=== PATIENT | male | born 1945 | race Hispanic/Latino ===

== ENCOUNTER 2018-01-31 20:10 | Emergency (ER) | payer MEDICARE, OTHER ==
[~2018-01-31] VITALS: Ht 167.6 cm; Wt 122.9 kg
[~2018-01-31 20:10] MED LIST: ALDACTONE25 MG PO; AMILORIDE HCL5 MG PO; ASPIRIN325 MG PO; COLCRYS0.6 MG PO; DOCUSATE SODIU100 MG PO; FUROSEMIDE40 MG PO; LASIX20 MG PO; LASIX40 MG PO; LOSARTAN POTAS100 MG PO; LOSARTAN POTASS25 MG; MEDROL4 MG; POTASSIUM CHLO20 ME1 PO; PREDNISONE20 MG PO; SPIRONOLACTONE25 MG PO; VITAMIN D1000 UNI1 PO
== END 2018-01-31 20:39 | disposition left against medical advice (07) ==
LOC: ER 20:10
DX: M54.5 Low back pain (principal); G89.29 Other chronic pain

== ENCOUNTER 2019-03-07 07:24 | Emergency (ER) | payer MEDICARE, OTHER ==
[~2019-03-07] VITALS: Ht 167.6 cm; Wt 122.9 kg
--- OUTSIDE RECORDS SUMMARY | 2019-03-07 07:29 | XMS REPORT | Summary of Care ---
Author Author [facility] Organization [facility] Address Unknown Phone Unavailable Encounter LESLIE Mccartney(ELEAZAR) [id number] Date(s): 06/14/18 - 06/14/[address] [facility] [address] [facility] [address] [place] [phone] Encounter Diagnosis Liver disease, unspecified (Final) - 06/20/18 Nonalcoholic steatohepatitis (TODD) (Final) - Unspecified cirrhosis of liver (Final) - Essential (primary) hypertension (Final) - Morbid (severe) obesity due to excess calories (Final) - Chronic constrictive pericarditis (Final) - Portal hypertension (Final) - Personal history of other infectious and parasitic diseases (Final) - Other specified postprocedural states (Final) - Helicobacter pylori [H. pylori] as the cause of diseases classified elsewhere (Final) - Constipation, unspecified (Final) - Body mass index (BMI) 45.0-49.9, adult (Final) - Other ascites (Final) - Nicotine dependence, cigarettes, uncomplicated (Final) - Discharge Disposition: Home or Self Care Attending Physician: Teto Guajardo MD Referring Physician: Teto Guajardo MD Vital Signs Most recent to 1 oldest [Reference Range]: Height 167.64 cm (06/14/18 12:05 PM) Blood Pressure 151/91 mmHg [90-140/60-90 mmHg] *HI* (06/14/18 12:05 PM) Weight 126.818 kg (06/14/18 12:05 PM) Body Mass Index 45.13 m2 (06/14/18 12:05 PM) Problem List Condition Effective Dates Status Health Status Informant Ascites(Confirmed) Active Chronic constrictive Active pericarditis(Confirm ed) Cirrhosis of Active liver(Confirmed) H/O Active pericarditis(Confirm ed) HTN Resolved (hypertension)(Confi rmed) Liver Active masses(Confirmed) Morbid Active obesity(Confirmed) TODD (nonalcoholic Active steatohepatitis)(Con firmed) Bilateral shoulder Active pain(Confirmed) Allergies, Adverse Reactions, Alerts Substance Reaction Severity Status omeprazole pantoprazole Active spironolactone Active pantoprazole Active Medications amoxicillin 500 mg oral tablet 1,000 mg=2 tab, PO, BID, X 14 day, # 56 tab, 0 Refill(s), Pharmacy: [facility] [id number] Start Date: 07/29/18 Stop Date: 08/01/18 Status: Discontinued Centrum Silver oral tablet 1 tab, PO, Daily, # 30 tab, 0 Refill(s) Start Date: 06/14/18 Status: Ordered clarithromycin 500 mg oral tablet 500 mg=1 tab, PO, BID, X 14 day, # 28 tab, 0 Refill(s), Pharmacy: [facility] [id number] Start Date: 07/29/18 Stop Date: 08/01/18 Status: Discontinued omeprazole 20 mg oral delayed release capsule 20 mg=1 cap, PO, BID, # 28 cap, 0 Refill(s), Pharmacy: [facility] [id number] Start Date: 07/29/18 Stop Date: 08/01/18 Status: Discontinued Osteo Bi-Flex 0 Refill(s) Start Date: 06/14/18 Stop Date: 07/20/18 Status: Deleted Pylera oral capsule 3 cap, PO, QID-After Meals, Take after meals and at bedtime, X 14 day, # 168 cap , 0 Refill(s), Pharmacy: [facility] [id number] Start Date: 07/27/18 Stop Date: 07/29/18 Status: Discontinued Pylera oral capsule 3 cap, PO, QID-After Meals, Take after meals and at bedtime, X 10 day, # 120 cap , 0 Refill(s), other Start Date: 08/01/18 Stop Date: 08/11/18 Status: Completed Results Most recent to 1 oldest [Reference Range]: Neutrophils # 7.7 K/CMM [1.5-8.1 K/CMM] (06/14/18 3:04 PM) Lymphocytes # 1.8 K/CMM [1.0-5.5 K/CMM] (06/14/18 3:04 PM) Monocytes # [0.0-0.8 0.9 K/CMM K/CMM] *HI* (06/14/18 3:04 PM) Eosinophils # 0.1 K/CMM [0.0-0.5 K/CMM] (06/14/18 3:04 PM) Bili Indirect 1.0 mg/dL [0.0-1.0 mg/dL] (06/14/18 3:04 PM) eGFR 80 mL/min/1.73m2 1 *NA* (06/14/18 3:04 PM) A/G Ratio [0.7-1.6] 0.9 (06/14/18 3:04 PM) AFP TM [0.0-11.0 4.0 ng/mL ng/mL] (06/14/18 3:04 PM) Albumin Lvl [3.5-5.0 3.7 g/dL g/dL] (06/14/18 3:04 PM) Alk Phos [39-136 83 unit/L unit/L] (06/14/18 3:04 PM) ALT [0-65 unit/L] 21 unit/L (06/14/18 3:04 PM) AGAP [10.0-20.0 12.2 mEq/L mEq/L] (06/14/18 3:04 PM) AST [0-37 unit/L] 18 unit/L (06/14/18 3:04 PM) Basophils [0.0-1.0 0.4 % %] (06/14/18 3:04 PM) BUN [7-22 mg/dL] 20 mg/dL (06/14/18 3:04 PM) Calcium Lvl 8.7 mg/dL [8.5-10.5 mg/dL] (06/14/18 3:04 PM) Chloride Lvl [95-109 103 mEq/L mEq/L] (06/14/18 3:04 PM) CO2 [24-32 mEq/L] 30 mEq/L (06/14/18 3:04 PM) Creatinine Lvl 0.94 mg/dL [0.50-1.40 mg/dL] (06/14/18 3:04 PM) Bili Direct [0.0-0.3 0.4 mg/dL mg/dL] *HI* (06/14/18 3:04 PM) Eosinophils [0.0-4.0 0.9 % %] (06/14/18 3:04 PM) Globulin [2.7-4.2 4.2 g/dL g/dL] (06/14/18 3:04 PM) Glucose Lvl [70-99 100 mg/dL mg/dL] *HI* (06/14/18 3:04 PM) Hct [42.0-54.0 %] 44.3 % (06/14/18 3:04 PM) Hgb [14.0-18.0 g/dL] 14.8 g/dL (06/14/18 3:04 PM) INR [0.85-1.17] 1.18 *HI* (06/14/18 3:04 PM) Potassium Lvl 4.2 mEq/L [3.5-5.1 mEq/L] (06/14/18 3:04 PM) Lymphocytes 17.1 % [20.0-40.0 %] *LOW* (06/14/18 3:04 PM) MCH [27.0-31.0 pg] 31.8 pg *HI* (06/14/18 3:04 PM) MCHC [32.0-36.0 33.5 g/dL g/dL] (06/14/18 3:04 PM) MCV [80.0-94.0 fL] 94.9 fL *HI* (06/14/18 3:04 PM) Monocytes [2.0-12.0 8.3 % %] (06/14/18 3:04 PM) MPV [7.4-10.4 fL] 10.9 fL *HI* (06/14/18 3:04 PM) Sodium Lvl [135-145 141 mEq/L mEq/L] (06/14/18 3:04 PM) Platelet [133-450 159 K/CMM K/CMM] (06/14/18 3:04 PM) Segs [45.0-75.0 %] 73.3 % (06/14/18 3:04 PM) Total Protein 7.9 g/dL [6.4-8.4 g/dL] (06/14/18 3:04 PM) PT [12.0-14.7 14.8 seconds seconds] *HI* (06/14/18 3:04 PM) RBC [4.70-6.10 4.66 M/CMM M/CMM] *LOW* (06/14/18 3:04 PM) RDW [11.5-14.5 %] 16.1 % *HI* (06/14/18 3:04 PM) Bili Total [0.2-1.3 1.4 mg/dL mg/dL] *HI* (06/14/18 3:04 PM) WBC [3.7-10.4 K/CMM] 10.4 K/CMM (06/14/18 3:04 PM) 1Result Comment: The eGFR is calculated using the CKD-EPI formula. In most young, healthy individuals the eGFR will be >90 mL/min/1.73m2. The eGFR declines with age. An eGFR of 60-89 may be normal in some populations, particularly the elderly, for whom the CKD-EPI formula has not been extensively validated. Use of the eGFR is not recommended in the following populations: Individuals with unstable creatinine concentrations, including patients and those with serious co-morbid conditions. Patients with extremes in muscle mass or diet. The data above are obtained from the National Kidney Disease Education Program ( NKDEP) which additionally recommends that when the eGFR is used in patients with extremes of body mass index for purposes of drug dosing, the eGFR should be mul tiplied by the estimated BMI. Immunizations No data available for this section Procedures Procedure Date Related Diagnosis Body Site Status Esophagogastroduodenoscopy Completed Social History Social History Type Response Substance Abuse Use: None. Employment/School Status: Retired. Alcohol Never Smoking Status Former smoker; Type: Cigarettes; Exposure to Tobacco Smoke Pt. current everyday smoker; Cigarette Smoking Last 365 Days No; Reg Smoking Cessation Counseling No1 entered on: 12/15/18 1quit about 2 years ago Assessment and Plan No data available for this section
--- OUTSIDE RECORDS SUMMARY | 2019-03-07 07:29 | XMS REPORT | Continuity of Care Document ---
Author Author [email or web address] Address Unknown Phone Unavailable Care Team Providers Care Medical Assistant Secretary Name Role Phone gBox Unavailable Unavailable Problems Problem Status Onset Date Classification Date Reported Comments Source Diverticulitis of intestine, part unspecified, without perforation or abscess without bleeding 11/20/2018 11/22/2018 [facility] Unspecified fall, initial encounter 11/20/2018 11/22/2018 [facility] Dorsalgia, unspecified 11/20/2018 11/22/2018 [facility] Abrasion of right forearm, initial encounter 11/20/2018 11/22/2018 [facility] BACK PAIN Active 11/20/2018 [facility] Other cirrhosis of liver 08/05/2018 02/08/2019 [facility] Liver disease, unspecified 06/21/2018 01/02/2019 [facility] F/U Active 06/20/2018 [facility] CIRRHOSIS, HELICOBACTER PYLORI GASTRITIS Active 06/20/2018 [facility] K75.81 - NONALCOHOLIC STEATOHEPATITIS ( Active 06/17/2018 HAZEL Wolf FOLLOW-UP Active 01/11/2018 [facility] CIRRHOSIS, R/O ESOPHAGEAL VARICES Active 04/06/2017 [facility] DDC // 6 MONTH F/U VISIT Active 04/06/2017 [facility] DDC-6 MONTH F/U VISIT Active 10/06/2016 [facility] BILATERAL SHOULDERS Active 06/23/2016 ZAK Cotton BDDC-Z00.00 ENCOUNTER FOR GENERAL MEDICA Active 04/23/2016 [facility] K74.60 - UNSPECIFIED CIRRHOSIS OF LIVER Active 01/22/2016 [facility] [employer] SOB Active 01/22/2016 [facility] R18.8 - OTHER ASCITES K74.60 - UNSPECIFI Active 01/13/2016 OPID Cotton BDDC - F/U Active 01/13/2016 [facility] CIRRHOSIS Active 12/13/2015 [facility] Hypotension Active 11/07/2015 Problem 02/01/2018 [facility] Pneumonia Active 11/07/2015 Problem 02/01/2018 [facility] Sepsis Active 11/07/2015 Problem 02/01/2018 [facility] CHF Active 09/13/2015 Problem 02/01/2018 [facility] Cirrhosis Active 09/13/2015 Problem 02/01/2018 [facility] Dyspnea Active 09/13/2015 Problem 02/01/2018 [facility] Hypoxia Active 09/13/2015 Problem 02/01/2018 [facility] PEROCARDIO Active 09/13/2015 [facility] Ascites (disorder) Active Problem 02/08/2019 [facility], HAZEL Hazel, [place], HAZEL Wolf, [facility] Cotton Chronic constrictive pericarditis (disorder) Active Problem 02/08/2019 [facility], HAZEL Haz[place], [place], OPID Luciano, [facility] Cotton Cirrhosis of liver (disorder) Active Problem 02/08/2019 [facility], HAZEL [place], [place], OPID Luciano, [facility] Cotton Hypertensive disorder, systemic arterial (disorder) Resolved Problem 02/08/2019 [facility], HAZEL Haz[place], [place], OPID Luciano, [facility] Cotton Liver mass (finding) Active Problem 02/08/2019 [facility], HAZEL [place], [place], OPID Wolf Morbid obesity (disorder) Active Problem 02/08/2019 [facility], HAZEL Haz[place], [place], OPID Luciano, [facility] Cotton Obesity (disorder) Active Problem 05/23/2017 [facility], HAZEL Hazel, OPID Luciano, [facility] Cotton Shoulder pain (finding) Active Problem 02/08/2019 [facility], HAZEL Hazel, [place], OPID Wolf, SMR Cotton Nonalcoholic steatohepatitis (disorder) Active Problem 02/08/2019 [facility], HAZEL Haz[place], [place], OPID Wolf Pericarditis (disorder) Resolved Problem 12/17/2017 [facility] History of pericarditis (situation) Active Problem 02/08/2019 [facility], HAZEL Hazel,[facility], HAZEL Wolf Portal hypertension 02/08/2019 [facility] Other diseases of stomach and duodenum 02/08/2019 [facility] Chronic superficial gastritis without bleeding 02/08/2019 [facility] Other campus receptionist (current) drug therapy 02/08/2019 [facility] Personal history of nicotine dependence 02/08/2019 [facility] Essential (primary) hypertension 02/08/2019 [facility] Nonalcoholic steatohepatitis (TODD) 02/08/2019 [facility] Personal history of other infectious and parasitic diseases 02/08/2019 [facility] Obesity, unspecified 02/08/2019 [facility] Body mass index (BMI) 35.0-35.9, adult 02/08/2019 [facility] Unspecified cirrhosis of liver 01/02/2019 [facility] Morbid (severe) obesity due to excess calories 01/02/2019 [facility] Chronic constrictive pericarditis 01/02/2019 [facility] Other specified postprocedural states 01/02/2019 [facility] Helicobacter pylori [H. pylori] as the cause of diseases classified elsewhere 01/02/2019 [facility] Constipation, unspecified 01/02/2019 [facility] Body mass index (BMI) 45.0-49.9, adult 01/02/2019 [facility] Other ascites 01/02/2019 [facility] Nicotine dependence, cigarettes, uncomplicated 01/02/2019 [facility] ENCOUNTER FOR OTHER ADMINISTRATIVE EXAMI Active [facility] ENCNTR FOR GENERAL ADULT MEDICAL EXAM W/ Active [facility] Medications Medication Details Route Status Patient Instructions Ordering Provider Order Date Source aMILoride 5 mg oral tablet 15 mg=3 tab, PO, Daily, # 270 tab, 5 Refill(s), Pharmacy: [facility] [id number], Please discontinue all previous RX of amiloride Active 12/15/2018 [facility] tramadol hydrochloride 50 MG Oral Tablet [Ultram] 50 mg=1 tab, PO, Q6H, PRN Pain Score 1-5, X 3 day, # 12 tab, 0 Refill(s) Active 11/21/2018 [facility] Metronidazole 500 MG Oral Tablet [Flagyl] 500 mg=1 tab, PO, Q8H, X 10 day, # 30 tab, 0 Refill(s) Active 11/21/2018 [facility] Ciprofloxacin 500 MG Oral Tablet [Cipro] 500 mg=1 tab, PO, Q12H, X 10 day, # 20 tab, 0 Refill(s) Active 11/21/2018 [facility] baclofen 20 mg oral tablet 20 mg=1 tab, PO, TID, PRN Spasms, # 90 tab, 0 Refill(s) Active 11/21/2018 [facility] Valium 2.5 mg, 0.5 tab, Route: PO, Drug form: TAB, ONCE, Dosing Weight 127, kg, Priority: STAT, Start date: 11/20/18 22:33:00 CDT, Stop date: 11/20/18 22:33:00 CDTNotes: (Same as: Valium) Inactive 11/21/2018 [facility] Valium 2.5 mg, Route: PO, Drug form: TAB, ONCE, Dosing Weight 127, kg, Priority: STAT, Start date: 11/20/18 21:31:00 CDT, Stop date: 11/20/18 21:31:00 CDT Inactive 11/21/2018 [facility] Valium 2 mg, Route: IVP, Drug form: INJ, ONCE, Dosing Weight 127, kg, Priority: STAT, Start date: 11/20/18 21:25:00 CDT, Stop date: 11/20/18 21:25:00 CDT Inactive 11/21/2018 [facility] Motrin 800 mg, Route: PO, Drug form: TAB, ONCE, Dosing Weight 127, kg, Priority: STAT, Start date: 11/20/18 21:24:00 CDT, Stop date: 11/20/18 21:24:00 CDT Inactive 11/21/2018 [facility] Ondansetron 4 mg, 2 mL, Route: IVP, Drug form: INJ, ONCE, Dosing Weight 127, kg, Priority: STAT, Start date: 11/20/18 20:23:00 CDT, Stop date: 11/20/18 20:23:00 CDTNotes: (Same as: Yohanafrbertha) MEDICATION WASTE Product Size: 4 mg Product Wasted: ___ mg Inactive 11/21/2018 [facility] Morphine 4 mg, 1 mL, Route: IVP, Drug form: SOLN, ONCE, Dosing Weight 127, kg, Priority: STAT, Start date: 11/20/18 20:23:00 CDT, Stop date: 11/20/18 20:23:00 CDTNotes: (Same as:MORPhine Sulfate) Inactive 11/21/2018 [facility] Ondansetron 4 mg, 2 mL, Route: IVP, Drug form: INJ, ONCE, Dosing Weight 127, kg, Priority: STAT, Start date: 11/20/18 17:56:00 CDT, Stop date: 11/20/18 17:56:00 CDTNotes: (Same as: Zofran) MEDICATION WASTE Product Size: 4 mg Product Wasted: ___ mg Inactive 11/20/2018 [facility] Morphine 4 mg, 1 mL, Route: IVP, Drug form: SOLN, ONCE, Dosing Weight 127, kg, Priority: STAT, Start date: 11/20/18 17:56:00 CDT, Stop date: 11/20/18 17:56:00 CDTNotes: (Same as:MORPhine Sulfate) Inactive 11/20/2018 [facility] bismuth subcitrate 140 MG / Metronidazole 125 MG / tetracycline hydrochloride 125 MG Oral Capsule [Pylera] 3 cap, PO, QID-After Meals, Take after meals and at bedtime, X 10 day, # 120 cap, 0 Refill(s), other No Longer Active 08/01/2018 [facility] omeprazole 20 mg oral delayed release capsule 20 mg=1 cap, PO, BID, # 28 cap, 0 Refill(s), Pharmacy: [facility] [id number] No Longer Active 07/29/2018 [facility] amoxicillin 500 mg oral tablet 1,000 mg=2 tab, PO, BID, X 14 day, # 56 tab, 0 Refill(s), Pharmacy: [facility] [id number] No Longer Active 07/29/2018 [facility] clarithromycin 500 mg oral tablet 500 mg=1 tab, PO, BID, X 14 day, # 28 tab, 0 Refill(s), Pharmacy: [facility] [id number] No Longer Active 07/29/2018 [facility] bismuth subcitrate 140 MG / Metronidazole 125 MG / tetracycline hydrochloride 125 MG Oral Capsule [Pylera] 3 cap, PO, QID-After Meals, Take after meals and at bedtime, X 14 day, # 168 cap, 0 Refill(s), Pharmacy: [facility] [id number] No Longer Active 07/27/2018 [facility] Triamcinolone Acetonide 0.001 MG/MG Topical Ointment See Instructions, TOP TID, 0 Refill(s) Active 07/21/2018 [facility] Docusate 100 mg, PO, BID, 0 Refill(s) Active 07/21/2018 [facility] Osteo Bi-Flex 0 Refill(s) No Longer Active 06/14/2018 [facility] Centrum Silver oral tablet 1 tab, PO, Daily, # 30 tab, 0 Refill(s) Active 06/14/2018 [facility] Hydrocortisone 25 MG/ML Topical Cream [Proctozone HC] 1 appl, TOP, Daily, PRN Hemorrhoids, X 30 day, # 30 gm, 0 Refill(s), Pharmacy: [facility] [id number] Active 12/14/2017 [facility] omeprazole 40 mg oral delayed release capsule 40 mg=1 cap, PO, Daily, # 30 cap, 1 Refill(s), given to patient No Longer Active 05/20/2017 [facility] Furosemide 20 MG Oral Tablet [Lasix] 20 mg=1 tab, PO, Daily, # 30 tab, 2 Refill(s), Pharmacy: [facility] [id number] Active 07/24/2016 [facility] aMILoride 5 mg oral tablet 5 mg=1 tab, PO, Daily, # 30 tab, 3 Refill(s), Pharmacy: [facility] [id number] Active 07/14/2016 [facility] Furosemide 20 MG Oral Tablet [Lasix] 20 mg=1 tab, PO, Daily, # 30 tab, 3 Refill(s), Pharmacy: [facility] [id number] Active 03/26/2016 [facility] Furosemide 20 MG Oral Tablet [Lasix] 20 mg=1 tab, PO, Daily, 0 Refill(s) No Longer Active 03/24/2016 [facility] aMILoride 5 mg oral tablet 5 mg=1 tab, PO, Daily, # 30 tab, 3 Refill(s), Pharmacy: [facility] [id number] Active 03/24/2016 [facility] Vitamin D3 0 Refill(s) Active 03/24/2016 [facility] Hydrocortisone 25 MG/ML Topical Cream [Anusol HC] 1 appl, NM, BID, X 14 day, # 30 gm, 1 Refill(s), Pharmacy: [facility] [id number] No Longer Active 01/23/2016 [facility] Docusate Sodium 100 MG Oral Capsule [Colace] 200 mg=2 cap, PO, Daily, 0 Refill(s) Active 01/13/2016 [facility] midodrine 5 mg oral tablet 5 mg=1 tab, PO, TID, # 90 tab, 3 Refill(s) Active 01/13/2016 [facility] Aspirin 325 Mg Tablet, 325 Mg Oral Active 11/10/2015 [facility] Colchicine (Colcrys) 0.6 Mg Tablet, 0.6 Mg Oral Daily Active 11/10/2015 [facility] Furosemide (Lasix) 40 Mg Tablet, 40 Mg Oral Daily Active 11/10/2015 [facility] Losartan Potassium 100 Mg Tablet, 50 Mg Oral Daily Active 11/10/2015 [facility] Potassium Chloride 20 Meq Tab.er.prt, 2 Tab Oral Daily as needed for High Blood Pressure Active 11/10/2015 [facility] Prednisone 20 Mg Tab, 20 Mg Oral Twice A Day Active 11/10/2015 [facility] Spironolactone 25 Mg Tablet, 100 Mg Oral Twice A Day Active 11/10/2015 [facility] Losartan Potassium 25 Mg Tablet, Active 11/07/2015 [facility] Spironolactone 25 Mg Tablet, 25 Mg Oral Twice A Day Active 11/07/2015 [facility] Furosemide 40 MG Oral Tablet [Lasix] 40 mg, 1 tab, Route: PO, Drug form: TAB, Daily, Dosing Weight 130, kg, Start date: 09/16/15 9:00:00, Duration: 30 day, Stop date: 10/15/15 9:00:00Notes: (Same as: Lasix) May cause GI upset. Give with food or milk. Inactive 09/16/2015 [facility] Miralax 17 gm, 1 pkt, Route: PO, Drug form: PWDR, Daily, Dosing Weight 130, kg, Start date: 09/16/15 9:00:00, Duration: 30 day, Stop date: 10/15/15 9:00:00Notes: Dissolve in 8 oz of water or juice. (Same as: Miralax) Inactive 09/16/2015 [facility] Docusate 100 mg, 1 cap, Route: PO, Drug form: CAP, BID, Dosing Weight 130, kg, Start date: 09/15/15 9:00:00, Duration: 30 day, Stop date: 10/14/15 17:00:00Notes: (Same as: Colace) (Do Not Crush) No Longer Active 09/15/2015 [facility] Hydrocortisone 10 MG/ML Rectal Cream 1 appl, Route: NM, BID, Start date: 09/15/15 9:00:00, Duration: 30 day, Stop date: 10/14/15 17:00:00 No Longer Active 09/15/2015 [facility] potassium chloride 20 mEq, 1 tab, Route: PO, Drug form: ERTAB, Daily, Dosing Weight 130, kg, Start date: 09/15/15 9:00:00, Duration: 30 day, Stop date: 10/14/15 9:00:00Notes: (Same as: K-Dur 20) "Do Not Crush" With food and full glass of water No Longer Active 09/15/2015 [facility] potassium chloride 40 mEq, 2 tab, Route: PO, Drug form: ERTAB, ONCE, Dosing Weight 130, kg, Start date: 09/15/15 4:53:00, Stop date: 09/15/15 4:53:00Notes: (Same as: K-Dur 20) "Do Not Crush" With food and full glass of water Inactive 09/15/2015 [facility] Calcium Gluconate 2,000 mg, 20 mL, Route: IVPB, ONCE, Dosing Weight 130, kg, Start date: 09/15/15 4:53:00, Stop date: 09/15/15 4:53:00Notes: WASTE: F/P - Sink; E - Municipal Trash Bin Inactive 09/15/2015 [facility] hydrocortisone 2.5% rectal cream with applicator 1 appl, Route: NM, BID, Drug form: CRM/A, Start date: 09/14/15 21:30:00, Duration: 30 day, Stop date: 10/14/15 17:00:00Notes: (Same as: Anusol-HC, Proctosol-HC) No Longer Active 09/15/2015 [facility] Losartan 25 mg, 1 tab, Route: PO, Drug form: TAB, Bedtime, Dosing Weight 130, kg, Start date: 09/14/15 21:00:00, Duration: 30 day, Stop date: 10/13/15 21:00:00Notes: (Same as: Cozaar) No Longer Active 09/15/2015 [facility] senna 8.6 mg oral tablet 8.6 mg, 1 tab, Route: PO, Drug Form: TAB, Dosing Weight 130, kg, Bedtime, Start date: 09/14/15 21:00:00, Duration: 30 day, Stop date: 10/13/15 21:00:00Notes: (Same as: Senokot) No Longer Active 09/15/2015 [facility] Aldactone 25 mg, 1 tab, Route: PO, Drug form: TAB, BID, Dosing Weight 130, kg, Start date: 09/14/15 17:00:00, Duration: 30 day, Stop date: 10/14/15 9:00:00Notes: (Same As: Aldactone) No Longer Active 09/14/2015 [facility] Lasix 40 mg, 4 mL, Route: IVP, Drug form: INJ, Q12H, Dosing Weight 130, kg, Start date: 09/14/15 13:50:00, Duration: 30 day, Stop date: 10/14/15 9:00:00Notes: (Same as: Lasix) MEDICATION WASTE Product Size: 40 mg Product Wasted: ___ mg No Longer Active 09/14/2015 [facility] heparin 5,000 unit, 1 mL, Route: SUB-Q, Drug form: INJ, Q8H, Dosing Weight 130, kg, Start date: 09/14/15 0:00:00, Duration: 30 day, Stop date: 10/13/15 16:00:00Notes: porcine heparin No Longer Active 09/14/2015 [facility] atorvastatin 40 mg, 1 tab, Route: PO, Drug form: TAB, Bedtime, Dosing Weight 130, kg, Start date: 09/13/15 21:00:00, Duration: 30 day, Stop date: 10/12/15 21:00:00Notes: (Same as: Lipitor) No Longer Active 09/14/2015 [facility] Nitroglycerin 0.4 mg, 1 tab, Route: SL, Drug form: TAB, Q5Min, Dosing Weight 130, kg, PRN Chest Pain, Start date: 09/13/15 18:12:00, Duration: 3 doses or times, Stop date: Limited # of timesNotes: (Same as:Nitroqu ick, Nitrostat) "Do Not Crush" Sublingual tablet No Longer Active 09/14/2015 [facility] Spironolactone 25 MG Oral Tablet [Aldactone] 25 mg=1 tab, PO, BID, 0 Refill(s) Active 09/13/2015 [facility] losartan 50 mg oral tablet 50 mg=1 tab, PO, Bedtime, 0 Refill(s) Active 09/13/2015 [facility] Furosemide 40 MG Oral Tablet [Lasix] 40 mg=1 tab, PO, Daily, 0 Refill(s) Active 09/13/2015 [facility] Amiloride Hcl 5 Mg Tablet Daily Active [facility] Cholecalciferol (Vitamin D3) (Vitamin D) 1,000 Unit Tablet 2DAYS/Wk Active [facility] Docusate Sodium 100 Mg Capsule Daily Active [facility] Furosemide (Lasix) 20 Mg Tablet Daily Active [facility] Methylprednisolone (Medrol) 4 Mg Tablet Active [facility] Spironolactone (Aldactone) 25 Mg Tablet Daily Active [facility] Allergies, Adverse Reactions, Alerts Substance Category Reaction Severity Reaction type Status Date Reported Comments Source spironolactone Assertion Drug allergy Active [facility] omeprazole Assertion pantoprazole Propensity to adverse reactions to drug Active [facility] pantoprazole Assertion Propensity to adverse reactions to drug Active [facility] Immunizations No Data Provided for This Section Results Order Name Results Value Reference Range Date Interpretation Comments Source IMMUNOLOGY H pylori Breath Test Negative (12/15/18 1:16 PM) 12/15/2018 [facility] CARDIAC ENZYMES Troponin-I <0.02 0.00 - 0.40 11/20/2018 [facility] ELECTROLYTES AGAP 8.8 10.0 - 20.0 11/20/2018 [facility] ELECTROLYTES eGFR 73 11/20/2018 Result Comment: The eGFR is calculated using the [...] from the National Kidney Disease Education Program (NKDEP) which additionally recommends that when the eGFR is used in patients with extremes of body mass index for purposes of drug dosing, the eGFR should be multiplied by the estimated BMI. [facility] ELECTROLYTES Glucose Lvl 111 70 - 99 11/20/2018 [facility] ELECTROLYTES BUN 16 7 - 22 11/20/2018 [facility] ELECTROLYTES Sodium Lvl 139 135 - 145 11/20/2018 [facility] ELECTROLYTES Creatinine Lvl 1.01 0.50 - 1.40 11/20/2018 [facility] ELECTROLYTES Potassium Lvl 3.8 3.5 - 5.1 11/20/2018 [facility] ELECTROLYTES Calcium Lvl 8.1 8.5 - 10.5 11/20/2018 [facility] ELECTROLYTES Chloride Lvl 107 95 - 109 11/20/2018 [facility] ELECTROLYTES CO2 27 24 - 32 11/20/2018 [facility] HEMATOLOGY MCV 95.7 80.0 - 94.0 11/20/2018 [facility] HEMATOLOGY MCH 31.2 27.0 - 31.0 11/20/2018 [facility] HEMATOLOGY Hct 46.1 42.0 - 54.0 11/20/2018 [facility] HEMATOLOGY Hgb 15.0 14.0 - 18.0 11/20/2018 [facility] HEMATOLOGY Platelet 142 133 - 450 11/20/2018 [facility] HEMATOLOGY MPV 9.8 7.4 - 10.4 11/20/2018 [facility] HEMATOLOGY MCHC 32.6 32.0 - 36.0 11/20/2018 [facility] HEMATOLOGY RBC 4.81 4.70 - 6.10 11/20/2018 [facility] HEMATOLOGY WBC 6.8 3.7 - 10.4 11/20/2018 [facility] HEMATOLOGY RDW 15.1 11.5 - 14.5 11/20/2018 [facility] HEMATOLOGY Lymphocytes # 1.5 1.0 - 5.5 11/20/2018 [facility] HEMATOLOGY Neutrophils # 4.5 1.5 - 8.1 11/20/2018 [facility] HEMATOLOGY Eosinophils 1.9 0.0 - 4.0 11/20/2018 [facility] HEMATOLOGY Basophils 0.5 0.0 - 1.0 11/20/2018 [facility] HEMATOLOGY Monocytes 9.7 2.0 - 12.0 11/20/2018 [facility] HEMATOLOGY Segs 66.0 45.0 - 75.0 11/20/2018 [facility] HEMATOLOGY Lymphocytes 21.9 20.0 - 40.0 11/20/2018 [facility] HEMATOLOGY Monocytes # 0.7 0.0 - 0.8 11/20/2018 [facility] HEMATOLOGY Eosinophils # 0.1 0.0 - 0.5 11/20/2018 [facility] CHEM PANEL Globulin 4.2 2.7 - 4.2 06/14/2018 [facility] CHEM PANEL A/G Ratio 0.9 0.7 - 1.6 06/14/2018 [facility] CHEM PANEL Bili Total 1.4 0.2 - 1.3 06/14/2018 [facility] CHEM PANEL Bili Indirect 1.0 0.0 - 1.0 06/14/2018 [facility] CHEM PANEL Bili Direct 0.4 0.0 - 0.3 06/14/2018 [facility] CHEM PANEL Alk Phos 83 39 - 136 06/14/2018 [facility] CHEM PANEL Total Protein 7.9 6.4 - 8.4 06/14/2018 [facility] CHEM PANEL AST 18 0 - 37 06/14/2018 [facility] CHEM PANEL ALT 21 0 - 65 06/14/2018 [facility] CHEM PANEL Albumin Lvl 3.7 3.5 - 5.0 06/14/2018 [facility] ELECTROLYTES AGAP 12.2 10.0 - 20.0 06/14/2018 [facility] ELECTROLYTES eGFR 80 06/14/2018 Result Comment: The eGFR is calculated using the [...] from the National Kidney Disease Education Program (NKDEP) which additionally recommends that when the eGFR is used in patients with extremes of body mass index for purposes of drug dosing, the eGFR should be multiplied by the estimated BMI. [facility] ELECTROLYTES BUN 20 7 - 22 06/14/2018 [facility] ELECTROLYTES Glucose Lvl 100 70 - 99 06/14/2018 [facility] ELECTROLYTES CO2 30 24 - 32 06/14/2018 [facility] ELECTROLYTES Creatinine Lvl 0.94 0.50 - 1.40 06/14/2018 [facility] ELECTROLYTES Potassium Lvl 4.2 3.5 - 5.1 06/14/2018 [facility] ELECTROLYTES Chloride Lvl 103 95 - 109 06/14/2018 [facility] ELECTROLYTES Sodium Lvl 141 135 - 145 06/14/2018 [facility] ELECTROLYTES Calcium Lvl 8.7 8.5 - 10.5 06/14/2018 [facility] HEMATOLOGY Lymphocytes # 1.8 1.0 - 5.5 06/14/2018 [facility] HEMATOLOGY Neutrophils # 7.7 1.5 - 8.1 06/14/2018 [facility] HEMATOLOGY Eosinophils 0.9 0.0 - 4.0 06/14/2018 [facility] HEMATOLOGY Eosinophils # 0.1 0.0 - 0.5 06/14/2018 [facility] HEMATOLOGY Monocytes # 0.9 0.0 - 0.8 06/14/2018 [facility] HEMATOLOGY Monocytes 8.3 2.0 - 12.0 06/14/2018 [facility] HEMATOLOGY Segs 73.3 45.0 - 75.0 06/14/2018 [facility] HEMATOLOGY Lymphocytes 17.1 20.0 - 40.0 06/14/2018 [facility] HEMATOLOGY Basophils 0.4 0.0 - 1.0 06/14/2018 [facility] HEMATOLOGY INR 1.18 0.85 - 1.17 06/14/2018 [facility] HEMATOLOGY PT 14.8 12.0 - 14.7 06/14/2018 [facility] HEMATOLOGY RDW 16.1 11.5 - 14.5 06/14/2018 [facility] HEMATOLOGY MCHC 33.5 32.0 - 36.0 06/14/2018 [facility] HEMATOLOGY RBC 4.66 4.70 - 6.10 06/14/2018 [facility] HEMATOLOGY WBC 10.4 3.7 - 10.4 06/14/2018 [facility] HEMATOLOGY Hct 44.3 42.0 - 54.0 06/14/2018 [facility] HEMATOLOGY MCV 94.9 80.0 - 94.0 06/14/2018 [facility] HEMATOLOGY Hgb 14.8 14.0 - 18.0 06/14/2018 [facility] HEMATOLOGY MCH 31.8 27.0 - 31.0 06/14/2018 [facility] HEMATOLOGY MPV 10.9 7.4 - 10.4 06/14/2018 [facility] HEMATOLOGY Platelet 159 133 - 450 06/14/2018 [facility] TUMOR MARKERS AFP 4.0 0.0 - 11.0 06/14/2018 [facility] CHEM PANEL eGFR 91 05/06/2017 Result Comment: The eGFR is calculated using the [...] from the National Kidney Disease Education Program (NKDEP) which additionally recommends that when the eGFR is used in patients with extremes of body mass index for purposes of drug dosing, the eGFR should be multiplied by the estimated BMI. [facility] CHEM PANEL Bili Total 1.4 0.2 - 1.3 05/06/2017 [facility] CHEM PANEL Glucose Lvl 101 70 - 99 05/06/2017 [facility] CHEM PANEL BUN 18 7 - 22 05/06/2017 [facility] CHEM PANEL Potassium Lvl 4.0 3.5 - 5.1 05/06/2017 [facility] CHEM PANEL Albumin Lvl 3.6 3.5 - 5.0 05/06/2017 [facility] CHEM PANEL AST 16 0 - 37 05/06/2017 [facility] CHEM PANEL ALT 16 0 - 65 05/06/2017 [facility] CHEM PANEL Alk Phos 89 39 - 136 05/06/2017 [facility] CHEM PANEL Sodium Lvl 142 135 - 145 05/06/2017 [facility] CHEM PANEL Creatinine Lvl 0.77 0.50 - 1.40 05/06/2017 [facility] CHEM PANEL Calcium Lvl 8.9 8.5 - 10.5 05/06/2017 [facility] CHEM PANEL CO2 25 24 - 32 05/06/2017 [facility] CHEM PANEL Total Protein 7.6 6.4 - 8.4 05/06/2017 [facility] CHEM PANEL Chloride Lvl 107 95 - 109 05/06/2017 [facility] CHEM PANEL A/G Ratio 0.9 0.7 - 1.6 05/06/2017 [facility] CHEM PANEL AGAP 14.0 10.0 - 20.0 05/06/2017 [facility] CHEM PANEL Globulin 4.0 2.7 - 4.2 05/06/2017 [facility] CHEM PANEL B/C Ratio 23 6 - 25 05/06/2017 [facility] HEMATOLOGY MPV 10.4 7.4 - 10.4 05/06/2017 [facility] HEMATOLOGY WBC 6.3 3.7 - 10.4 05/06/2017 [facility] HEMATOLOGY Platelet 130 133 - 450 05/06/2017 [facility] HEMATOLOGY RDW 17.0 11.5 - 14.5 05/06/2017 [facility] HEMATOLOGY MCHC 33.0 32.0 - 36.0 05/06/2017 [facility] HEMATOLOGY Hgb 14.5 14.0 - 18.0 05/06/2017 [facility] HEMATOLOGY Hct 43.9 42.0 - 54.0 05/06/2017 [facility] HEMATOLOGY RBC 4.78 4.70 - 6.10 05/06/2017 [facility] HEMATOLOGY MCV 91.9 80.0 - 94.0 05/06/2017 [facility] HEMATOLOGY MCH 30.3 27.0 - 31.0 05/06/2017 [facility] HEMATOLOGY PT 15.1 12.0 - 14.7 05/06/2017 [facility] HEMATOLOGY INR 1.18 0.85 - 1.17 05/06/2017 [facility] HEMATOLOGY PTT 33.4 22.9 - 35.8 05/06/2017 [facility] HEMATOLOGY TEG Interp Thrombelastograph results are within reference ranges. These indicate adequate hemostasis. Note that TEG does not show effect of NSAIDs or P2Y12 inhibitors. CPT:10717 05/06/2017 [facility] HEMATOLOGY TEG Data See Note (05/06/17 4:00 PM) 05/06/2017 [facility] HEMATOLOGY Coag Index 1.2 -3.0-3.0 - 3.0 05/06/2017 [facility] HEMATOLOGY Ly30 0.5 0.0 - 7.5 05/06/2017 [facility] HEMATOLOGY Max Amp 68.0 50.0 - 70.0 05/06/2017 [facility] HEMATOLOGY K-time 1.6 1.0 - 3.0 05/06/2017 [facility] HEMATOLOGY Angle 66.9 53.0 - 72.0 05/06/2017 [facility] HEMATOLOGY G-value 10.6 4.5 - 11.0 05/06/2017 [facility] HEMATOLOGY R-time 5.8 5.0 - 10.0 05/06/2017 [facility] HEMATOLOGY Lymphocytes 29.2 20.0 - 40.0 05/06/2017 [facility] HEMATOLOGY Segs 57.8 45.0 - 75.0 05/06/2017 [facility] HEMATOLOGY Basophils 0.3 0.0 - 1.0 05/06/2017 [facility] HEMATOLOGY Segs-Bands # 3.7 1.5 - 8.1 05/06/2017 [facility] HEMATOLOGY Monocytes 9.6 2.0 - 12.0 05/06/2017 [facility] HEMATOLOGY Eosinophils 3.1 0.0 - 4.0 05/06/2017 [facility] HEMATOLOGY Eosinophils # 0.2 0.0 - 0.5 05/06/2017 [facility] HEMATOLOGY Monocytes # 0.6 0.0 - 0.8 05/06/2017 [facility] HEMATOLOGY Lymphocytes # 1.8 1.0 - 5.5 05/06/2017 [facility] SPECIAL CHEMISTRY Hgb A1C 6.8 <=5.6 % 05/06/2017 [facility] CHEM PANEL Calcium Lvl 9.1 8.5 - 10.5 09/16/2015 [facility] CHEM PANEL Creatinine Lvl 1.01 0.50 - 1.40 09/16/2015 [facility] CHEM PANEL Chloride Lvl 99 95 - 109 09/16/2015 [facility] CHEM PANEL Sodium Lvl 137 135 - 145 09/16/2015 [facility] CHEM PANEL Potassium Lvl 4.1 3.5 - 5.1 09/16/2015 [facility] CHEM PANEL BUN 22 7 - 22 09/16/2015 [facility] CHEM PANEL Glucose Lvl 109 70 - 99 09/16/2015 [facility] CHEM PANEL Phosphorus 4.1 2.5 - 4.5 09/16/2015 [facility] CHEM PANEL Albumin Lvl 3.2 3.5 - 5.0 09/16/2015 [facility] CHEM PANEL CO2 31 24 - 32 09/16/2015 [facility] CHEM PANEL AGAP 11.1 10.0 - 20.0 09/16/2015 [facility] CHEM PANEL eGFR 74 09/16/2015 Result Comment: The eGFR is calculated using the [...] from the National Kidney Disease Education Program (NKDEP) which additionally recommends that when the eGFR is used in patients with extremes of body mass index for purposes of drug dosing, the eGFR should be multiplied by the estimated BMI. [facility] IMMUNOLOGY Hep A IgM Negative *NA* (09/15/15 5:36 PM) Negative 09/15/2015 [facility] IMMUNOLOGY Hep Be Ag NONREACTIVE 09/15/2015 Result Comment: REFERENCE RANGES: NONREACTIVE
Test Performed at:
[facility]
[id number] [facility]
[place] [id number] Elva Barajas MD [facility] IMMUNOLOGY Hep B Core IgM Negative *NA* (09/15/15 10:30 AM) Negative 09/15/2015 [facility] MOLECULAR DIAGNOSTIC Hep B PCR Qnt Not Detected (09/15/15 10:30 AM) 09/15/2015 [facility] MOLECULAR DIAGNOSTIC HBV DNA Log10 <1.3 09/15/2015 [facility] CHEM PANEL Magnesium Lvl 1.9 1.8 - 2.4 09/15/2015 [facility] CHEM PANEL Phosphorus 2.9 2.5 - 4.5 09/15/2015 [facility] CHEM PANEL eGFR 99 09/15/2015 Result Comment: The eGFR is calculated using the [...] from the National Kidney Disease Education Program (NKDEP) which additionally recommends that when the eGFR is used in patients with extremes of body mass index for purposes of drug dosing, the eGFR should be multiplied by the estimated BMI. [facility] CHEM PANEL AGAP 10.3 10.0 - 20.0 09/15/2015 [facility] CHEM PANEL CO2 29 24 - 32 09/15/2015 [facility] CHEM PANEL Chloride Lvl 108 95 - 109 09/15/2015 [facility] CHEM PANEL Potassium Lvl 3.3 3.5 - 5.1 09/15/2015 [facility] CHEM PANEL Calcium Lvl 6.9 8.5 - 10.5 09/15/2015 Result Comment: Critical Result(s) called to mary white at 09/15/2015 04:33 by ko. Read back OK. [facility] CHEM PANEL Glucose Lvl 99 70 - 99 09/15/2015 [facility] CHEM PANEL Sodium Lvl 144 135 - 145 09/15/2015 [facility] CHEM PANEL Creatinine Lvl 0.64 0.50 - 1.40 09/15/2015 [facility] CHEM PANEL BUN 17 7 - 22 09/15/2015 [facility] IMMUNOLOGY ASTRID Negative (09/15/15 1:35 AM) Negative 09/15/2015 [facility] IMMUNOLOGY Tissue Transglutaminase (tTg) IgG <0.8 <=14.9 unit/mL 09/15/2015 [facility] IMMUNOLOGY Gliadin (Deamidated Peptide)IgA Ab 1.9 <=14.9 unit/mL 09/15/2015 [facility] IMMUNOLOGY Gliadin (Deamidated Peptide)IgG Ab <0.4 <=14.9 unit/mL 09/15/2015 [facility] IMMUNOLOGY Tissue Transglutaminase (tTG) IgA <0.5 <=14.9 unit/mL 09/15/2015 [facility] IMMUNOLOGY IgA Lvl 285.0 68.0 - 378.0 09/15/2015 [facility] CARDIAC ENZYMES BNP 34 <=100 pg/mL 09/14/2015 [facility] HEMATOLOGY Monocytes 7.0 2.0 - 12.0 09/14/2015 [facility] HEMATOLOGY Lymphocytes 21.8 20.0 - 40.0 09/14/2015 [facility] HEMATOLOGY Lymphocytes # 1.8 1.0 - 5.5 09/14/2015 [facility] HEMATOLOGY Monocytes # 0.6 0.0 - 0.8 09/14/2015 [facility] HEMATOLOGY Basophils # 0.1 0.0 - 0.2 09/14/2015 [facility] HEMATOLOGY Eosinophils # 0.1 0.0 - 0.5 09/14/2015 [facility] HEMATOLOGY Eosinophils 1.1 0.0 - 4.0 09/14/2015 [facility] HEMATOLOGY Basophils 0.9 0.0 - 1.0 09/14/2015 [facility] HEMATOLOGY Segs-Bands # 5.7 1.5 - 8.1 09/14/2015 [facility] HEMATOLOGY Segs 69.2 45.0 - 75.0 09/14/2015 [facility] HEMATOLOGY MPV 9.3 7.4 - 10.4 09/14/2015 [facility] HEMATOLOGY MCV 96.5 80.0 - 94.0 09/14/2015 [facility] HEMATOLOGY Hct 38.9 42.0 - 54.0 09/14/2015 [facility] HEMATOLOGY WBC 8.2 3.7 - 10.4 09/14/2015 [facility] HEMATOLOGY Hgb 12.7 14.0 - 18.0 09/14/2015 [facility] HEMATOLOGY RDW 14.3 11.5 - 14.5 09/14/2015 [facility] HEMATOLOGY RBC 4.03 4.70 - 6.10 09/14/2015 [facility] HEMATOLOGY MCH 31.6 27.0 - 31.0 09/14/2015 [facility] HEMATOLOGY Platelet 221 133 - 450 09/14/2015 [facility] HEMATOLOGY MCHC 32.7 32.0 - 36.0 09/14/2015 [facility] HEMATOLOGY PT 16.3 12.0 - 14.7 09/14/2015 [facility] HEMATOLOGY INR 1.28 0.85 - 1.17 09/14/2015 [facility] HEMATOLOGY PTT 33.0 22.9 - 35.8 09/14/2015 [facility] CARDIAC ENZYMES Troponin-I <0.02 0.00 - 0.40 09/14/2015 [facility] CARDIAC ENZYMES Troponin-T <0.010 0.000 - 0.100 09/14/2015 [facility] CARDIAC ENZYMES Total CK 259 12 - 191 09/14/2015 [facility] CARDIAC ENZYMES CK MB Index 0.6 0.0 - 2.5 09/14/2015 [facility] CARDIAC ENZYMES CK MB 1.5 0.5 - 3.6 09/14/2015 [facility] DRUG SCREEN UDS Note See Note *NA* (09/14/15 12:54 AM) 09/14/2015 [facility] DRUG SCREEN U Propoxyph Scr Negative *NA* (09/14/15 12:54 AM) Negative 09/14/2015 [facility] DRUG SCREEN U Phencyc Scr Negative *NA* (09/14/15 12:54 AM) Negative 09/14/2015 [facility] DRUG SCREEN U Methadone Scr Negative *NA* (09/14/15 12:54 AM) Negative 09/14/2015 [facility] DRUG SCREEN U Amph Scr Negative *NA* (09/14/15 12:54 AM) Negative 09/14/2015 [facility] DRUG SCREEN U Benzodia Scr Negative *NA* (09/14/15 12:54 AM) Negative 09/14/2015 [facility] DRUG SCREEN U Cannab Scr Negative *NA* (09/14/15 12:54 AM) Negative 09/14/2015 [facility] DRUG SCREEN U Janina Scr Negative *NA* (09/14/15 12:54 AM) Negative 09/14/2015 [facility] DRUG SCREEN U Cocaine Scr Negative *NA* (09/14/15 12:54 AM) Negative 09/14/2015 [facility] DRUG SCREEN U Opiate Scr Negative *NA* (09/14/15 12:54 AM) Negative 09/14/2015 [facility] URINE AND STOOL UA Nitrite Negative (09/14/15 12:54 AM) Negative 09/14/2015 [facility] URINE AND STOOL UA WBC 4 0 - 5 09/14/2015 [facility] URINE AND STOOL UA Leuk Est Trace *ABN* (09/14/15 12:54 AM) Negative 09/14/2015 [facility] URINE AND STOOL UA RBC <1 0 - 2 09/14/2015 [facility] URINE AND STOOL UA Blood Negative (09/14/15 12:54 AM) Negative 09/14/2015 [facility] URINE AND STOOL UA Bili Negative *NA* (09/14/15 12:54 AM) Negative 09/14/2015 [facility] URINE AND STOOL UA Ketones Negative mg/dL Negative mg/dL 09/14/2015 [facility] URINE AND STOOL UA Glucose Negative mg/dL Negative mg/dL 09/14/2015 [facility] URINE AND STOOL UA Protein 10 mg/dL Negative mg/dL 09/14/2015 [facility] URINE AND STOOL UA Urobilinogen <=1.0 mg/dL 0.1 - 1.0 09/14/2015 [facility] URINE AND STOOL UA Sq Epi None Seen 09/14/2015 [facility] URINE AND STOOL UA Mucus Few /LPF None Seen /LPF 09/14/2015 [facility] URINE AND STOOL UA Bacteria Occasional /HPF None Seen /HPF 09/14/2015 [facility] URINE AND STOOL UA pH 5.0 5.0 - 8.0 09/14/2015 [facility] URINE AND STOOL UA Spec Grav 1.029 <=1.030 09/14/2015 [facility] URINE AND STOOL UA Turbidity Clear (09/14/15 12:54 AM) Clear 09/14/2015 [facility] URINE AND STOOL UA Color Yellow *NA* (09/14/15 12:54 AM) Yellow 09/14/2015 [facility] ANEMIA STUDY Ferritin Lvl 240 22 - 275 09/14/2015 [facility] ANEMIA STUDY % Satur Fe 14 12 - 57 09/14/2015 [facility] ANEMIA STUDY UIBC 269 110 - 370 09/14/2015 [facility] ANEMIA STUDY TIBC 311 228 - 428 09/14/2015 [facility] ANEMIA STUDY Iron 42 45 - 160 09/14/2015 [facility] CARDIAC ENZYMES CK-MB INDEX 1.6 0.0 - 2.5 09/14/2015 [facility] CARDIAC ENZYMES CK MB 1.4 0.5 - 3.6 09/14/2015 [facility] CARDIAC ENZYMES Troponin-T <0.010 0.000 - 0.100 09/14/2015 [facility] CARDIAC ENZYMES Total CK 90 12 - 191 09/14/2015 [facility] CARDIAC ENZYMES Troponin-I <0.02 0.00 - 0.40 09/14/2015 [facility] CHEM PANEL Total Protein 7.4 6.4 - 8.4 09/14/2015 [facility] CHEM PANEL Bili Direct 0.2 0.0 - 0.3 09/14/2015 [facility] CHEM PANEL Bili Total 1.5 0.2 - 1.3 09/14/2015 [facility] CHEM PANEL Albumin Lvl 2.9 3.5 - 5.0 09/14/2015 [facility] CHEM PANEL ALT 26 0 - 65 09/14/2015 [facility] CHEM PANEL AST 34 0 - 37 09/14/2015 [facility] CHEM PANEL Alk Phos 77 39 - 136 09/14/2015 [facility] CHEM PANEL Bili Indirect 1.3 0.0 - 1.0 09/14/2015 [facility] CHEM PANEL A/G Ratio 0.6 0.7 - 1.6 09/14/2015 [facility] CHEM PANEL Globulin 4.5 2.0 - 4.0 09/14/2015 [facility] CHEM PANEL Phosphorus 3.2 2.5 - 4.5 09/14/2015 [facility] CHEM PANEL eGFR 81 09/14/2015 Result Comment: The eGFR is calculated using the [...] from the National Kidney Disease Education Program (NKDEP) which additionally recommends that when the eGFR is used in patients with extremes of body mass index for purposes of drug dosing, the eGFR should be multiplied by the estimated BMI. [facility] CHEM PANEL Chloride Lvl 105 95 - 109 09/14/2015 [facility] CHEM PANEL CO2 27 24 - 32 09/14/2015 [facility] CHEM PANEL Calcium Lvl 8.6 8.5 - 10.5 09/14/2015 [facility] CHEM PANEL BUN 13 7 - 22 09/14/2015 [facility] CHEM PANEL Potassium Lvl 4.2 3.5 - 5.1 09/14/2015 [facility] CHEM PANEL Creatinine Lvl 0.94 0.50 - 1.40 09/14/2015 [facility] CHEM PANEL Sodium Lvl 138 135 - 145 09/14/2015 [facility] CHEM PANEL Glucose Lvl 116 70 - 99 09/14/2015 [facility] CHEM PANEL AGAP 10.2 10.0 - 20.0 09/14/2015 [facility] CHEM PANEL Magnesium Lvl 2.3 1.8 - 2.4 09/14/2015 [facility] HEMATOLOGY Hgb 12.3 14.0 - 18.0 09/14/2015 [facility] IMMUNOLOGY HIV 1/2 Ab Negative *NA* (09/13/15 9:07 PM) Negative 09/14/2015 [facility] IMMUNOLOGY CERULOPLASMIN 31 20 - 60 09/14/2015 [facility] IMMUNOLOGY Hep B Core Ab Positive *NA* (09/13/15 9:07 PM) Negative 09/14/2015 [facility] IMMUNOLOGY Hep Bs Ag Negative *NA* (09/13/15 9:07 PM) Negative 09/14/2015 [facility] IMMUNOLOGY Hep Bs Ab <3.1 <=7.4 mIU/mL 09/14/2015 [facility] IMMUNOLOGY Hep A Tot Positive *NA* (09/13/15 9:07 PM) Negative 09/14/2015 [facility] IMMUNOLOGY Hep C Ab Negative *NA* (09/13/15 9:07 PM) 09/14/2015 [facility] IMMUNOLOGY Hep A Tot Positive *NA* (09/13/15 9:07 PM) Negative 09/14/2015 [facility] IMMUNOLOGY Hep B Core Ab Negative *NA* (09/13/15 9:07 PM) Negative 09/14/2015 [facility] LIPIDS CHD Risk 3.59 4.00 - 7.30 09/14/2015 [facility] LIPIDS VLDL 18 09/14/2015 [facility] LIPIDS LDL (Calculated) 70 <=99 mg/dL 09/14/2015 [facility] LIPIDS Chol 122 <=199 mg/dL 09/14/2015 [facility] LIPIDS HDL 34 >=61 mg/dL 09/14/2015 [facility] LIPIDS Trig 89 <=149 mg/dL 09/14/2015 [facility] SPECIAL CHEMISTRY Hgb A1C 6.6 <=5.6 % 09/14/2015 [facility] Pathology Reports No Data Provided for This Section Diagnostic Reports Report Value Date Source Chest/Abdomen/Pelvis w IV contrast CT STUDY: Chest/Abdomen/Pelvis w IV contrast CT 11/20/2018 5:54 PM CDT Ordering Physician: Peggy Y Jason Patient Name: ILANA MENDEZ MR: [id number] : 1945; Age: 73 years y/o Male Clinical Indication: Fall with generalized pain. Comparison: CT abdomen 11/05/2018. TECHNIQUE: Multiple contiguous postcontrast transaxial CT images were obtained from the base of the neck through the symphysis pubis. Sagittal and coronal reformatted images were prepared. CT imaging performed at this location utilizes radiation dose optimization techniques which include one or more of the following: -Automated exposure control -Adjustment of the mA and/or kV according to patient size -Use of iterative reconstruction technique IV CONTRAST: 100 mL Omnipaque 300 DLP: 2966.41 mGy-cm FINDINGS: CT CHEST WITH CONTRAST: LUNGS: Well inflated lungs without consolidation, pleural effusion, or pneumothorax. Mild bilateral basilar subsegmental atelectasis and scarring. Scattered tiny calcified granulomas in the right lung. AIRWAY: Clear central tracheobronchial tree. HEART: Heart size at the upper limits of normal associated with mild coronary calcifications and trace low-attenuation pericardial effusion. THORACIC AORTA: Normal caliber without aneurysm or dissection. PULMONARY ARTERIES: No evidence of central pulmonary embolus. MEDIASTINUM AND EMERSON: Scattered subcentimeter mediastinal and bilateral hilar lymph nodes without lymphadenopathy or mass. SOFT TISSUES: Mild bilateral gynecomastia. OSSEOUS STRUCTURES: No fracture, dislocation, or suspicious focal osseous lesion. CT ABDOMEN WITH CONTRAST: BOWEL GAS: Mild constipation and diverticulosis. Minimal hazy induration near the diverticula in the proximal to mid sigmoid colon suggesting minimal acute uncomplicated diverticulitis. APPENDIX: Not identified with certainty. STOMACH: Under distended appropriately thick-walled. PERITONEUM AND MESENTERY: Free Air: No evidence of pneumoperitoneum. Free Fluid: No evidence of significant free fluid, loculated fluid, peripherally enhancing abscess, or hemorrhage. Mesenteric and peritoneal fat: Normal without focal lesion or inflammation. LYMPH NODES: Scattered subcentimeter central mesenteric and retroperitoneal lymph nodes without lymphadenopathy or mass. VASCULAR: Abdominal Aorta: Normal caliber mildly atherosclerotic abdominal aorta. IVC: Normal caliber nonenhanced. ABDOMINAL ORGANS: Liver: Mildly shrunken and lobulated liver suggesting cirrhosis without discrete lesion. Gallbladder: Normal appearing gallbladder without calcified gallstones, gallbladder wall thickening, or pericholecystic inflammation. Biliary Tree: Normal without dilatation. Kidneys: Mild bilateral renal cortical atrophy associated with low-attenuation lesions in both kidneys consistent with cysts including a 5.6 cm lesion at -1 Hounsfield units in the right midpole and a 4.9 cm lesion and -11 Hounsfield units in the left inferior renal pole. Adrenal Glands: Normal size and morphology without discrete lesion. Pancreas: Normal size and morphology without discrete lesion. Spleen: Normal size and morphology without discrete lesion. PELVIC ORGANS: Urinary bladder: Nonopacified under distended appropriately thick-walled. Reproductive organs: Mildly enlarged prostate and seminal vesicles. SOFT TISSUES: Small fat-containing umbilical hernia. Indeterminate soft tissue density in the subcutaneous fat anteriorly to the left inguinal region measuring up to 3.8 cm. OSSEOUS STRUCTURES: Moderate lumbar spondylosis and facet arthrosis without acute fracture or dislocation. Chronic degenerative bilateral spondylolysis of L5 associated with grade 1 anterolisthesis of L5 on S1. IMPRESSION: 1. No acute fracture, dislocation, or acute internal injury. 2. Heterogeneous lobulated liver suggesting cirrhosis without discrete lesion. 3. Low-attenuation bilateral renal lesions consistent with cysts. 4. Heart size at the upper limits of normal associated with mild coronary artery calcifications and trace low-attenuation pericardial effusion. 5. Mild constipation and diverticulosis with minimal hazy induration of the diverticula in the proximal sigmoid colon suggesting minimal acute uncomplicated diverticulitis. 6. Mildly enlarged prostate and seminal vesicles should be correlated clinically. 7. Indeterminate soft tissue density in subcutaneous fat anteriorly to the left inguinal region should be correlated clinically. 8. Moderate lumbar spondylosis and facet arthrosis associated with chronic degenerative bilateral spondylolysis of L5 along with grade 1 anterolisthesis of L5 on S1. SL: TPAINTER-PC 11/20/2018 [facility] Chest 1view DX EXAM: XR CHEST 1 VIEW DATE: 11/20/2018 17:54 CDT INDICATION: Chest pain. COMPARISON: 09/13/2015. TECHNIQUE: Frontal radiograph of the chest was obtained. FINDINGS: No focal consolidation or pneumothorax is identified. The cardiomediastinal silhouette is within normal limits. The costophrenic recesses are sharp and without effusion. Degenerative changes are present in the thoracic spine. IMPRESSION: No acute cardiopulmonary abnormality. SL: [id number] 11/20/2018 [facility] Forearm 2 views DX Patient Name: ILANA MENDEZ : 1945; Age: 73 years y/o Male MR: [id number] * RIGHT FOREARM, 2 views History: Trauma, injury to the right forearm, status post fall, Right forearm pain. Technique: Frontal and lateral radiographs of the right forearm were obtained. FINDINGS: There is no evidence of fracture, dislocation, or acute change. There are no destructive lesions or other osseous abnormalities. IMPRESSION: 1. Negative right forearm. SL: CLARK- 11/20/2018 [facility] Brain wo contrast CT EXAM: CT BRAIN WITHOUT CONTRAST DATE: 11/20/2018 5:53 PM CDT INDICATION: - head injury. ADDITIONAL INFORMATION: . COMPARISON: None. TECHNIQUE: Routine axial CT images of the brain were obtained. IV contrast: None. CT imaging performed at this location utilizes radiation dose optimization techniques which include one or more of the following: -Automated exposure control -Adjustment of the mA and/or kV according to patient size -Use of iterative reconstruction technique CT Radiation Dose DLP 982.82 mGy-cm FINDINGS: Non-contrast images of the head demonstrate no edema, hemorrhage, mass lesion or other acute intracranial abnormality. Small posterior right temporal parietal cortical calcification is present. Ibrahim- white matter distinction is preserved. The ventricles are normal. The basal cisterns and sulci are normal in size. Marked atherosclerotic calcification of the distal internal carotid and vertebral arteries. Mild chronic inflammatory change of the paranasal sinus. The mastoid air cells are clear. IMPRESSION: 1. No definite acute infarct or intracranial hemorrhage detected. If there is further concern for intracranial pathology or acute stroke, MRI of the brain may be performed for complete assessment. SL: [id number]- 11/20/2018 [facility] Spine cervical wo contrast CT (ER) Procedure: CT Cervical Spine. Clinical Indication: Head injury, fell against a fence. Comparison: None. Technique: Multi-detector CT imaging of the cervical spine is performed. Coronal and sagittal reconstructions were obtained. CT imaging performed at this location utilizes radiation dose optimization techniques which include one or more of the following: -Automated exposure control -Adjustment of the mA and/or kV according to patient size -Use of iterative reconstruction technique CT Radiation Dose DLP 1127 mGy-cm FINDINGS: ALIGNMENT AND GENERAL ASSESSMENT: There is normal alignment of the cervical spine. There are no fractures or subluxations. The craniocervical junction is normal. The atlanto-dental alignment appears unremarkable. The posterior elements and spinous processes are unremarkable. The facet joint, spinolaminar and spinous process alignment are normal. DISK SPACES AND SOFT TISSUES: There is degenerative change at all levels including narrowing of the intervertebral disc spaces, marginal osteophyte formation and facet joint hypertrophy. No prevertebral soft tissue swelling is identified. VISUALIZED LUNG APICES: Unremarkable. IMPRESSION: 1. No fractures or subluxations of the cervical spine. SL:[id number] 11/20/2018 [facility] Liver Protocol w/wo IV contrast CT EXAM: CT ABDOMEN WITHOUT AND WITH CONTRAST DATE: 11/05/2018 10:05 CDT INDICATION: - K75.81 Nonalcoholic steatohepatitis (TODD) ADDITIONAL INFORMATION: None. COMPARISON: CT abdomen liver protocol 11/20/2016. TECHNIQUE: Volumetric CT abdomen is acquired both prior to and following intravenous contrast, in precontrast, arterial, portal venous and delayed phases of enhancement, per the dynamic liver protocol. Axial, sagittal and coronal images are provided. IV contrast: 1 50 mL Omnipaque 350 Enteric contrast: None. DLP: Information not provided mGy-cm FINDINGS: Lines, tubes and hardware: None. Lower thorax: Clear. Liver: Craniocaudal length: 13.1 cm. Surface: Nodular. Hepatic masses: None * Non-enhancing/cystic hepatic lesions: Subcentimeter hypodensity in segment 4A adjacent to the fissure for ligamentum teres, too small to further characterize. Hepatic vessels: Hepatic arterial anatomy: Accessory left hepatic artery from left gastric artery. Portal vein: Patent. Caliber: 1.4 cm Portosystemic collaterals: Splenorenal shunt. Recanalized left umbilical vein. Hepatic, splenic and superior mesenteric veins, and IVC: Patent. Biliary tree: No intra- or extrahepatic biliary ductal dilation. Gallbladder: Normal. Pancreas: Normal. Spleen: Normal. Incidental splenule. Adrenals: Normal. Kidneys and ureters: 5.2 cm x 4.7 cm exophytic simple cortical cyst at the inferior pole of right kidney. 5 cm x 3.6 cm exophytic cortical cyst at the inferior pole of left kidney Gastrointestinal tract: Stomach: Normal. Small bowel: Normal. Colon: Colonic diverticulosis Peritoneum, mesentery and retroperitoneum: No free air, ascites or loculated fluid. Lymph nodes: Subcentimeter periportal and precaval nodes. Extrahepatic vasculature: Aorta and branches: Normal. IVC and veins: Patent. Bones: No acute abnormality. Age-related degenerative findings. Soft tissues: Fat-containing umbilical hernia. IMPRESSION: 1. Cirrhotic liver with sequelae of portal hypertension including splenorenal shunt and recanalized left umbilical vein. 2. No suspicious arterial enhancing liver lesions 11/05/2018 [facility] Spine lumbar wo contrast MRI EXAM: MRI LUMBAR SPINE WITHOUT CONTRAST DATE: 03/29/2017 11:55 AM CDT INDICATION: - M51.16 Intervertebral disc disorders with radiculopathy, lumbar region COMPARISON: Lumbar spine series 08/18/11, CT abdomen 11/20/2016. TECHNIQUE: Multiplanar, multisequence MR imaging of the lumbar spine. IV contrast: None. FINDINGS: The lowest fully formed intervertebral disc space is labeled L5-S1. Lumbar vertebral bodies are normal in height. Grade 1 anterolisthesis of L5 on S1 by 10 mm. Spondylolysis of L5 with defects in the bilateral pars interarticularis. Congenital narrowing the spinal canal due to shortened pedicles with superimposed degenerative changes contributing to spinal canal stenosis. The conus terminates at L1-L2. L1-L2: Mild loss of disc height. Endplate osteophytes. Mild circumferential disc bulge. Mild bilateral facet arthropathy. Mild spinal canal stenosis. No significant neural foraminal stenosis. L2-L3: 5 mm circumferential disc bulge. Annular fissures are seen posteriorly. Endplate osteophytes. Mild bilateral facet arthropathy. Moderate spinal canal stenosis with crowding of the intrathecal nerve roots of the cauda equina. Moderate stenosis of the right greater than left subarticular zones at the level descending nerve roots. Mild bilateral foraminal stenoses. L3-L4: 5 mm circumferential disc bulge with endplate osteophytes. Annular fissures are seen posteriorly and in the foraminal zones. Moderate bilateral facet arthropathy. Moderate spinal canal stenosis with crowding of the intrathecal nerve roots of the cauda equina. Moderate narrowing of the subarticular zones at the level the descending nerve roots. Mild bilateral foraminal stenoses. L4-L5: Circumferential disc bulge with endplate osteophytes is asymmetric to the right measuring up to 7-8 mm. Severe bilateral facet arthropathy. Severe spinal canal stenosis with severe crowding of the intrathecal nerve roots of the cauda equina. Severe right greater than left subarticular zone stenoses at the level the descending L5 nerve roots. Mild to moderate right greater than left foraminal stenoses. L5-S1: Spondylolysis with defects of the bilateral pars interarticularis. Grade 1 anterolisthesis of L5 on S1 by 10 mm. Associated disc bulge/pseudobulge. Bilateral facet arthropathy. Disc osteophyte complexes project into the bilateral neural foramina with severe foraminal stenoses may impinge the exiting L5 nerve roots. Moderate to severe loss of disc height with endplate osteophytes. The paraspinous soft tissues are unremarkable. T2 hyperintense signal abnormality in the left kidney is incompletely imaged and may correspond to cysts seen on prior CT. 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 Severe spinal canal stenosis at L4-L5 concerning for impingement of the cauda equina and descending L5 nerve roots. Spondylolysis of L5 with defects in the bilateral pars interarticularis resulting in grade 1 anterolisthesis of L5 on S1. Severe foraminal stenoses are seen bilaterally at L5-S1 which may impinge the exiting L5 nerve roots. 03/29/2017 [facility] Liver Protocol w/wo IV contrast CT EXAM: CT ABDOMEN WITH AND WITHOUT CONTRAST DATE: 11/20/2016 at 1056 hours INDICATION: Cirrhosis. HCC surveillance. ADDITIONAL INFORMATION: None. COMPARISON: 06/03/2016 at 1141 hours TECHNIQUE: Volumetric CT acquisition of the abdomen both prior to and following intravenous contrast, in precontrast, arterial, portal venous and delayed phases of enhancement, per the dynamic liver protocol. Axial, sagittal and coronal reconstructions. IV contrast: 150 mL of Omnipaque 300. Enteric contrast: None. DLP: 2933.57 mGy-cm FINDINGS: Lines, tubes and hardware: None. Lower thorax: Clear. Liver: Craniocaudal length: 16.0 cm. Density: Normal. Surface nodularity: Moderate Hepatic masses: Previously identified multifocal areas of faint arterial hyperenhancement are again identified, although more faintly none prior exam. None of these demonstrates any washout and are all in keeping with LI-RADS 3 lesions: * Peripheral segment 8 lesion is 0.5 cm (4/28, previously 0.5 cm). * Central segment 6 lesion is 1.1 cm (4/48, previously 1.1 cm). * Medial segment 3 lesion adjacent to fissure is 2.2 cm (4/52, previously 2.2 cm) and does not demonstrate any washout on today's exam. * Central segment 3 lesion is 1.0 cm (4/52, previously 1.0 cm). * Peripheral segment 6 lesion is 1.8 cm (4/58, previously 1.9 cm). * Other subcentimeter peripheral areas of arterial hyperenhancement without washout are all likely related to perfusion defects. Non-enhancing/cystic hepatic lesions: * Peripheral nonenhancing cyst at the junction of the right and left hepatic lobes is 0.7 cm (4/26, previous 2.7 cm). Hepatic vessels: Hepatic arterial anatomy: * Early bifurcation of the right and left hepatic arteries. * Accessory left hepatic artery. Arterial stenoses: None. Portal vein: Patent. Caliber: 1.3 cm Portosystemic collaterals are None. Hepatic, splenic and superior mesenteric veins, and IVC: Patent. Regional lymph nodes: Unchanged. Biliary tree: No intra- or extrahepatic biliary ductal dilation. Gallbladder: Normal. No CT evidence of gallstones. Pancreas: Normal. Spleen: Normal. * 12.7 cm. Adrenals: Normal. Kidneys and ureters: * Unchanged bilateral renal cysts. * Normal concentration and excretion of contrast. Gastrointestinal tract: Normal caliber. Peritoneum, mesentery and retroperitoneum: Normal. No free air, ascites or loculated fluid. Distant lymph nodes: Normal. Vasculature: Normal. Bones: No acute abnormality. Soft tissues: Normal. IMPRESSION: 1. Nodular hepatic contours in keeping with cirrhosis. 2. Unchanged multifocal arterially hyperenhancing lesions without washout consistent with LI-RADS 3 lesions. 3. Variant hepatic arterial anatomy as above. 4. Unchanged renal cysts. RECOMMENDATIONS: Continued surveillance. 11/20/2016 [facility] Liver Protocol w/wo IV contrast CT EXAM: CT ABDOMEN WITH AND WITHOUT CONTRAST DATE: 06/03/2016 10:39 AM [employer]CH[employer] INDICATION: cirrhosis, ascites ADDITIONAL INFORMATION: None. COMPARISON: 02/07/2016 magnetic resonance imaging TECHNIQUE: Volumetric CT acquisition of the abdomen both prior to and following intravenous contrast, in precontrast, arterial, portal venous and delayed phases of enhancement, per the dynamic liver protocol. Axial, sagittal and coronal reconstructions. IV contrast: 100 mL Omnipaque 300 Oral contrast: 150 mL of Volumen DLP: 2813 mGy FINDINGS: Lines and tubes: None. Lower thorax: Clear. Liver: The right lobe of liver 16.2 cm in span. The liver has smooth contours with normal density. Enhancing hepatic masses > 2cm: A 2.2 focus of increased enhancement in the arterial phase is present on image 49 of series 4 in segment 3 of the left lobe. This did not have washout and was apparent on only the arterial phase. Enhancing hepatic masses < 2cm: A 5 mm focus of enhancement in the arterial phase is present and segment 8 on image 27 of series 4. This had no washout. This is smaller when compared to the comparison magnetic resonance imaging. An 11.3 mm arterially enhancing lesion is present on image 47 of series 4. This did not washout and is essentially unchanged from the comparison magnetic resonance imaging. A 1 cm lesion is present in segment 3 on image 49 of series 4. This has arterial enhancement but does not washout. It is smaller than on the comparison MRI scan. An 18.5 mm lesion with arterial enhancement is present on image 57 of series 4. This is essentially equivalent to the MRI scan. It has no washout. Non-enhancing/cystic hepatic lesions: A 6.9 mm low-density lesion is present on image 24 series 5 and image 24 series 4. This is apparently located in segment 4 and is consistent with a small cyst. Hepatic vessels: Hepatic arterial anatomy: Conventional. Portal vein: Patent. Caliber: 15.4 mm. Portosystemic collaterals are perisplenic collaterals extending to the left renal vein. Small perigastric collaterals are evident as well. Hepatic, splenic and superior mesenteric veins, and IVC: Patent. Regional lymph nodes: A lymph node which is 6 mm in short axis is present adjacent to the origin of the celiac axis on image 60 of series 5. A jodee hepatis lymph node on image 60 of series 5 is 10.6 mm in diameter. An aortocaval node is 7.9 mm in short axis on image 70 of series 5. A 2nd aortocaval node is 12.2 mm in size on image 95 series 5. Biliary tree: No intra- or extrahepatic biliary ductal dilation. Gallbladder: Normal. No CT evidence of gallstones. Pancreas: Normal. Spleen: Normal. Adrenals: Normal. Kidneys: Unchanged appearance of left renal cyst measuring 3.9 cm in maximum dimension and inferior cyst on the right with 5.1 cm maximum diameter. These are simple in appearance. There is normal enhancement of the kidneys bilaterally. Both kidneys excrete normally. Gastrointestinal tract: The stomach and small bowel are unremarkable. There are scattered colonic diverticula. A small fat-containing umbilical hernia is present. Peritoneum and retroperitoneum: No ascites or free air. Vasculature: There are scattered calcifications in the rosenberg of the aorta and its larger branches. No aneurysm is present. Bones: Bilateral L5 spondylolysis is present. There is mild anterolisthesis of L5 on S1; however, this was not completely evaluated because of the limited field of view. Please correlate clinically. Soft tissues: Normal. IMPRESSION: 1. The lesion in segment 3 of the left lobe of the liver is LI-RADS 4. The remaining lesions are LI-RADS 3 with the differences from magnetic resonance imaging as noted. 2. The portal vein is dilated. This may be an early sign of portal venous hypertension. 3. No change in simple cysts in the liver. 4. There is a small lesion in the superior portion of segment 4 which is consistent with small simple cyst. 5. Scattered colonic diverticula without diverticulitis. 6. Bilateral lateral spondylolysis at L5. 06/03/2016 [facility] Inj Arthrogram Shoulder Unilat DX EXAM: FLUOROSCOPY-GUIDED THERAPEUTIC LEFT SHOULDER INJECTION DATE: 04/27/2016 9:36 AM CDT INDICATION: M25.512 Pain in left shoulder COMPARISON: None TECHNIQUE: Consent: An informed consent was obtained from the patient prior to the procedure. Appropriate time out procedures were performed. The skin was prepped and draped in the usual fashion under aseptic precautions. 1% lidocaine was utilized for local anesthesia. Under fluoroscopic guidance a 22 gauge long spinal needle was used to access the shoulder joint. 0.8 mL of Omnipaque 240 was injected under fluoroscopic guidance to confirm intra- articular needle placement. 40 mg of Kenalog and 3 mL of 0.2% ropivacaine were subsequently injected. No immediate complications. FLUORO TIME: 0.12 minutes DAP: 1.83 mGy-cm2 FINDINGS: The shoulder joint was outlined. Evidence of mild synovitis is noted. IMPRESSION: Technically successful fluoroscopy-guided left therapeutic shoulder injection . 04/27/2016 [facility] De Santiagoann Inj Arthrogram Shoulder Unilat DX EXAM: FLUOROSCOPY-GUIDED THERAPEUTIC RIGHT SHOULDER INJECTION DATE: 04/20/2016 0912 hours INDICATION: M25.511 Pain in right shoulder COMPARISON: None TECHNIQUE: Consent: An informed consent was obtained from the patient prior to the procedure. Appropriate time out procedures were performed. The skin was prepped and draped in the usual fashion under aseptic precautions. 1% lidocaine was utilized for local anesthesia. Under fluoroscopic guidance a 22 gauge long spinal needle was used to access the shoulder joint. 0.5 mL of Omnipaque 240 was injected under fluoroscopic guidance to confirm intra- articular needle placement. 40 mg of Kenalog and 3 mL of 0.2% ropivacaine were subsequently injected. No immediate complications. Preprocedure pain score: 6/10 Postprocedure pain score: 0/10 FLUORO TIME: 8 seconds AIR KERMA: 1.[address] Goldberg, attending, was present for the procedure partida components. IMPRESSION: Technically successful fluoroscopy-guided therapeutic right shoulder injection. 04/20/2016 [facility] Abdomen w/wo contrast MRI EXAM: MR ABDOMEN WITH AND WITHOUT CONTRAST DATE: 01/22/2016 12:32 PM CDT INDICATION: Cirrhosis, HCC screening ADDITIONAL INFORMATION: None. COMPARISON: Ultrasound abdomen 09/15/2015, CT abdomen 12/16/2013 TECHNIQUE: Multiplanar, multisequence acquisition of the abdomen both prior to and following intravenous contrast, in precontrast, arterial, portal venous and delayed phases of enhancement, per the dynamic liver protocol. IV contrast: 10 mL MultiHance Oral contrast: None. FINDINGS: Lines and tubes: None. Lower thorax: Clear. Liver Craniocaudal length: 12.5 cm. Normal. Parenchyma: Normal. Surface nodularity: Present. Enhancing hepatic masses: A 1.9 cm wedge-shaped focus of enhancement is seen in hepatic segment 5 (series 1002, image 22) which does not washout on delayed phase images are demonstrated a pseudocapsule. Additional ill-defined enhancement is seen in the periphery of hepatic segment 6 which measures up to 1.6 cm (series 1002, image 40) which also does not demonstrate washout or pseudocapsule. Minimally enhancing rounded nodule is seen in hepatic segment 8 which measures approximately 2.1 cm without washout or pseudocapsule (series 1001, image 33). An additional rounded 1.4 cm focus of enhancement is present in the left hepatic lobe (series 1002, image 34) is also present. These may represent regenerative/dysplastic nodules. Non-enhancing/cystic hepatic lesions: None. Hepatic vessels: Hepatic arterial anatomy: Conventional. Arterial stenoses: None. Portal vein: Patent. Caliber: 1.6 cm Portosystemic collaterals are splenic and perigastric varices. Hepatic, splenic and superior mesenteric veins, and IVC: Patent. Regional lymph nodes: Normal. Biliary tree: No intra- or extrahepatic biliary ductal dilation. Gallbladder: Normal. Pancreas: Normal. Spleen: Normal. Adrenals: Normal. Kidneys: Simple appearing, nonenhancing renal cysts are seen extruding from both kidneys, with the largest measuring 5.4 cm extending from the inferior pole the right kidney. Kidneys otherwise enhance and excrete contrast normally. Gastrointestinal tract: Normal caliber. Peritoneum and retroperitoneum: Trace perihepatic ascites is present. No other fluid collection. Distant lymph nodes: Normal. Vasculature: Normal. Bones: Normal. Soft tissues: Normal. IMPRESSION: 1. Wedge-shaped and ill-defined enhancing lesions in the right hepatic lobe; LI- RADS 3. While these may represent intrahepatic portosystemic shunts, close follow-up with repeat liver protocol MRI is recommended in 3 months. 2. Liver cirrhosis with minimally enhancing, rounded nodules in both hepatic lobes, which may represent regenerative or dysplastic nodules. 3. Splenic and perigastric varices with borderline dilated main portal vein, suggesting portal hypertension. 4. Trace perihepatic ascites. 02/07/2016 [facility] Hazel Abdomen RUQ US EXAM: US ABDOMEN LIMITED DATE: 09/15/2015 at 1243 hours. INDICATION: Abdominal distension ADDITIONAL INFORMATION: None. COMPARISON: CT abdomen pelvis dated 12/16/2013. TECHNIQUE: Multiplanar grayscale and color Doppler ultrasound of the right upper quadrant. FINDINGS: Liver: Craniocaudal length: 15.22 cm. Echogenicity: Heterogenous. Surface nodularity: Mildly cirrhotic. Mass (size and location): None. Portal vein: 0.9 cm with hepatopetal flow. Bile ducts: Common bile duct diameter: 0.36 cm. Intrahepatic ducts: Normal. Gallbladder: Gallstones: None. Gallbladder sludge: None. Gallbladder wall: 0.28 cm. Pericholecystic fluid: None. Sonographic Rockwell sign: Absent. Pancreas: Head and uncinate process: Normal. Body and tail: Not seen. Right kidney: Hydronephrosis: None. Size: 13.7 x 6.5 x 6.6 cm. Echogenicity: Normal. Mass/Stone/Cyst (size and location): Simple cyst measuring 4.7 x 4.6 x 4.5 cm the right inferior pole. Spleen: Measures 11.2 x 4.7 x 5.3 cm. Ascites: Free fluid is seen in the left lower quadrant. Other: None. IMPRESSION: 1. Mildly cirrhotic and heterogenous liver. 2. Small perihepatic and left lower quadrant free fluid. 3. Small left pleural effusion. 09/15/2015 [facility] Chest 1view DX Indications: Arrhythmias. IMPRESSION: Single AP view of the chest reveals cardiomegaly with mild pulmonary vascular congestion. Subsegmental atelectasis is seen both lung bases. The regional skeleton is unremarkable. There is no pleural effusions. 09/13/2015 [facility] Consultation Notes No Data Provided for This Section Discharge Summaries No Data Provided for This Section History and Physicals No Data Provided for This Section Vital Signs Vital Sign Value Date Comments Source Heart Rate 83 12/15/2018 [facility] Height 167.64 cm 12/15/2018 [facility] Weight 126.364 12/15/2018 [facility] BMI Calculated 44.96 12/15/2018 [facility] Systolic (mm Hg) 139 12/15/2018 [facility] Diastolic (mm Hg) 84 12/15/2018 [facility] Respitory Rate 18 11/21/2018 [facility] Systolic (mm Hg) 150 11/21/2018 [facility] Diastolic (mm Hg) 86 11/21/2018 [facility] Temperature Oral (F) 98.6 F 11/21/2018 [facility] Heart Rate 90 11/21/2018 [facility] Weight 127 11/20/2018 [facility] BMI Calculated 45.19 11/20/2018 [facility] Height 167.64 cm 11/20/2018 [facility] Temperature Oral (F) 98.4 F 11/20/2018 [facility] Systolic (mm Hg) 123 11/20/2018 [facility] Diastolic (mm Hg) 62 11/20/2018 [facility] Respitory Rate 18 11/20/2018 [facility] Heart Rate 82 11/20/2018 [facility] Systolic (mm Hg) 133 07/21/2018 [facility] Diastolic (mm Hg) 92 07/21/2018 [facility] Respitory Rate 16 07/21/2018 [facility] Systolic (mm Hg) 143 07/21/2018 [facility] Diastolic (mm Hg) 75 07/21/2018 [facility] Respitory Rate 18 07/21/2018 [facility] Systolic (mm Hg) 126 07/21/2018 [facility] Diastolic (mm Hg) 67 07/21/2018 [facility] Respitory Rate 15 07/21/2018 [facility] Heart Rate 79 07/21/2018 [facility] Height 167.64 cm 07/21/2018 [facility] BMI Calculated 44.16 07/21/2018 [facility] Weight 124.091 07/21/2018 [facility] Weight 98.636 07/20/2018 [facility] BMI Calculated 35.1 07/20/2018 [facility] Height 167.64 cm 07/20/2018 [facility] Height 167.64 cm 06/14/2018 [facility] BMI Calculated 45.13 06/14/2018 [facility] Weight 126.818 06/14/2018 [facility] Systolic (mm Hg) 151 06/14/2018 [facility] Diastolic (mm Hg) 91 06/14/2018 [facility] BMI Calculated 44.64 12/14/2017 [facility] Weight 125.455 12/14/2017 [facility] Height 167.64 cm 12/14/2017 [facility] Heart Rate 84 12/14/2017 [facility] Respitory Rate 16 12/14/2017 [facility] Systolic (mm Hg) 151 12/14/2017 [facility] Diastolic (mm Hg) 84 12/14/2017 [facility] Systolic (mm Hg) 172 05/20/2017 [facility] Diastolic (mm Hg) 83 05/20/2017 [facility] Systolic (mm Hg) 153 05/20/2017 [facility] Diastolic (mm Hg) 79 05/20/2017 [facility] Respitory Rate 11 05/20/2017 [facility] Systolic (mm Hg) 138 05/20/2017 [facility] Diastolic (mm Hg) 74 05/20/2017 [facility] Respitory Rate 25 05/20/2017 [facility] Heart Rate 88 05/20/2017 [facility] Respitory Rate 17 05/20/2017 [facility] BMI Calculated 45.33 05/06/2017 [facility] Weight 125.455 05/06/2017 [facility] Height 166.37 cm 05/06/2017 [facility] Heart Rate 83 05/06/2017 [facility] Weight 124.091 04/06/2017 [facility] BMI Calculated 44.16 04/06/2017 [facility] Height 167.64 cm 04/06/2017 [facility] Respitory Rate 18 04/06/2017 [facility] Heart Rate 79 04/06/2017 [facility] Systolic (mm Hg) 133 04/06/2017 [facility] Diastolic (mm Hg) 82 04/06/2017 [facility] Respitory Rate 16 10/06/2016 [facility] Heart Rate 81 10/06/2016 [facility] Systolic (mm Hg) 145 10/06/2016 [facility] Diastolic (mm Hg) 85 10/06/2016 [facility] BMI Calculated 41.91 10/06/2016 [facility] Weight 121.364 10/06/2016 [facility] Height 170.18 cm 10/06/2016 [facility] Weight 116.818 03/24/2016 [facility] BMI Calculated 40.34 03/24/2016 [facility] Systolic (mm Hg) 149 03/24/2016 [facility] Diastolic (mm Hg) 91 03/24/2016 [facility] Heart Rate 81 03/24/2016 [facility] Temperature Oral (F) 97.3 F 03/24/2016 [facility] Height 170.18 cm 03/24/2016 [facility] BMI Calculated 39.59 01/13/2016 [facility] Weight 114.659 01/13/2016 [facility] Height 170.18 cm 01/13/2016 [facility] Systolic (mm Hg) 142 01/13/2016 [facility] Diastolic (mm Hg) 82 01/13/2016 [facility] Heart Rate 97 01/13/2016 [facility] Systolic (mm Hg) 129 09/16/2015 [facility] Diastolic (mm Hg) 62 09/16/2015 [facility] Respitory Rate 20 09/16/2015 [facility] Temperature Oral (F) 97.7 F 09/16/2015 [facility] Heart Rate 83 09/16/2015 [facility] Temperature Oral (F) 97.5 F 09/16/2015 [facility] Respitory Rate 20 09/16/2015 [facility] Heart Rate 75 09/16/2015 [facility] Systolic (mm Hg) 111 09/16/2015 [facility] Diastolic (mm Hg) 69 09/16/2015 [facility] Systolic (mm Hg) 117 09/16/2015 [facility] Diastolic (mm Hg) 64 09/16/2015 [facility] Heart Rate 101 09/16/2015 [facility] Respitory Rate 20 09/16/2015 [facility] Temperature Oral (F) 98.2 F 09/16/2015 [facility] BMI Calculated 44.89 09/13/2015 [facility] Weight 130 09/13/2015 [facility] Height 170.18 cm 09/13/2015 [facility] Encounters Location Location Details Encounter Type Encounter Number Reason For Visit Attending Provider ADM Date DC Date Status Source [facility] Inpatient [id number] Eusebio Perez 09/13/2015 09/16/2015 [facility] Outpatient [id number] Teto Guajardo 01/13/2016 01/14/2016 [facility] [place] [facility] [id number] Teto Guajardo 02/07/2016 02/08/2016 [facility] Outpatient [id number] Teto Guajardo 03/24/2016 03/25/2016 [facility] [place] [facility] [id number] Paco Fowler 04/20/2016 04/21/2016 [facility] [place] [facility] [id number] Paco Fowler 04/27/2016 04/28/2016 [facility] Outpatient [id number] Teto Guajardo 05/07/2016 05/07/2016 [facility] [place] [facility] [id number] Teto Guajardo 06/03/2016 06/04/2016 [facility] [id number] Paco Fowler 08/21/2016 09/20/2016 [facility] [id number] Paco Fowler 09/21/2016 10/21/2016 [facility] Outpatient [id number] Teto Guajardo 10/06/2016 10/07/2016 [facility] [place] [facility] [id number] Teto Bennett 11/20/2016 11/21/2016 [facility] [place] [facility] [id number] Obed Mar 03/29/2017 03/30/2017 [facility] Outpatient [id number] Teto Guajardo 04/06/2017 04/07/2017 [facility] Day Surgery [id number] Teto Guajardo 05/20/2017 05/21/2017 [facility] Outpatient [id number] Teto Guajardo 12/14/2017 12/15/2017 [facility] Departed Emergency Room [id number] MIREILLE WALL MD 01/31/2018 01/31/2018 [facility] Outpatient [id number] Teto Guajardo 06/14/2018 06/15/2018 [facility] [place] [facility] [id number] Mar Lobo 07/08/2018 07/08/2018 [facility] Day Surgery [id number] Teto Guajardo 07/21/2018 07/22/2018 [facility] [place] [facility] [id number] Teto Guajardo 11/05/2018 11/06/2018 [facility] Emergency [id number] Tadeo Rogers 11/20/2018 11/21/2018 [facility] Outpatient [id number] Mar Lobo 12/15/2018 12/16/2018 [facility] Procedures Procedure Code Date Perfomer Comments Source Injection procedure for shoulder arthrography or enhanced CT/MRI shoulder arthrography 65043 [facility] [id number] [facility], HAZEL Hazel,[facility] Assessment and Plan Assessment and Plan Date Source Extracted from:Title: Hospitalist Progress Note Author: Mita Flores MD Date: 09/15/15 Assessment/Plan This is a 70 year old man with reported history of hypertension transferred from an outside facility due to concerns for cardiac tamponade from a pericardial effusion. 1. Probable Liver cirrhosis - per CT abd/pelvis, pending Abd US report -pt has serological work up to assess for possible cirrhosis, still pending multiple tests including celiac panel,some of the hepatitis panel did come back positive (as noted above), however unclear if this means acute infection or chronic infection - therefore, will further identify usingHBcore Ab IgM, Hep B DNAbyPCR, and HepBe Ag, will also order HepA IgM -ifabove test negative, and pt improved clinically, will need continued outpatient follow up with hepatology to continue to work up etiology of cirrhosis - pt deniesEtOH use ever - will cont lasix/spironolactone as pt with singificant anasarca 2. Pericardial effusion - No clear cause identified, periodic follow up an outpatient - no h/o recent infection - no SOB or CP at this time but says that he feels uncomfortable breathing because of his abdominal distension 3. HTN (hypertension) - Continue losartan, BP well controlled 4. Obesity - Patient counselled on need to increase physical activity and monitor caloric intake 5. Prediabetes - Patient counselled on limiting carbohydrates in diet 6. Hemorrhoids - Topical hydrocortisone ordered. 7. Severe diverticulosis - no evidence of diverticulitis per CT scan, and afebrile with no leukocytosis - to f/u as outpatient with GI/PCP 8. Constipation - per CT scan, on laxative/stool softener 9. Hypocalcemia/hypokalemia - replete Orders: Hepatitis B Core Antibody IgM Hepatitis B DNA Quant by PCR Hepatitis Be Antigen Prophylaxis HSQ Disposition pending medical stabilization, likely d/c tomorrow Extracted from:Title: [facility] Admission H&P * Author: Maciel Bunch MD Date: 09/14/15 Patient: ILANA MENDEZ Age: 70 years Sex: Male : 1945 Associated Diagnoses: None Author: Maciel Bunch MD Chief Complaint Direct Admit for PERICARDIAL EFFUSION WITH DIZZINESS History of Present Illness 70 HM with history of HTN and putative liver cirrhosis [facility] with concern for tamponade. He presented to OSH after syncope and numerous dizzy spells beginning one month ago. He slouched from seated position and struck his head without any visible signs of trauma. He also complains of abdominal distention, and edema. OSH performed CT brain: wn l, CT abdomen pelvis revealed cirrhotic liver, ascites, small pleural effusions and a pericardial effusion, TTE revealed moderate pericaldial effusion with noral LVEF, RUQ US showed cirrhotic liver without other issues. Due to effusion in the presence of dizziness The patient has only seen a doctor briefly over the last two years, no prior doctor's visits, which began with a back injury which sent him to the Emergency Room. Since this time, he followed with PCP Dr Chris Geller. It appears as though the patient has been treated for cirrhosis without formal diagnosis nor cause delineated. The patient denies hx of ethanol abuse, no IVDU, no transfusions. He has a sister with cirrhosis which was attributed to hepatits C following blood transfusion. He is currently resting comfortably, denies CP, N, V, D, fevers, SOB, COOL, Orthopnea. Admits swelling in BLE, abdominal distention, dry cough for one month. Review of Systems Constitutional: No fever, No chills, No sweats, No weakness, No fatigue. Eye: Negative. Ear/Nose/Mouth/Throat: Negative. Respiratory: Cough, No shortness of breath, No sputum production, No hemoptysis, No wheezing. Cardiovascular: Peripheral edema, Syncope, No chest pain, No palpitations, No bradycardia, No tachycardia. Gastrointestinal: No nausea, No vomiting, No diarrhea, No constipation, No heartburn. Genitourinary: Negative. Hematology/Lymphatics: Negative. Endocrine: Negative. Immunologic: Negative. Musculoskeletal: Negative. Integumentary: Negative. Neurologic: Negative. Psychiatric: Negative. All other systems are negative Health Status Allergies: Allergic Reactions (All) Severity Not Documented NKDA- No reactions were documented., Allergies (1) Active Reaction NKDA None Documented Current medications: (Selected) Inpatient Medications Ordered atorvastatin: 40 mg, 1 tab, PO, Bedtime heparin: 5,000 unit, 1 mL, SUB-Q, Q8H nitroglycerin SL Tab: 0.4 mg, 1 tab, SL, Q5Min, PRN: Chest Pain Documented Medications Documented Aldactone 25 mg oral tablet: 25 mg, 1 tab, PO, BID, 0 Refill(s) Lasix 40 mg oral tablet: 40 mg, 1 tab, PO, Daily, 0 Refill(s) losartan 50 mg oral tablet: 50 mg, 1 tab, PO, Bedtime, 0 Refill(s), Medications (3) Active Scheduled: (2) atorvastatin 40mg tab 40 mg 1 tab, PO, Bedtime heparin 5000 unit/1 ml INJ VL 5,000 unit 1 mL, SUB-Q, Q8H Continuous: (0) PRN: (1) nitroglycerin 0.4 mg TAB 25's btl 0.4 mg 1 tab, SL, Q5Min Problem list: No qualifying data available Histories Past Medical History: Resolved HTN (hypertension) ([id number]): Resolved. Family History: History is unknown. Procedure history: No active procedure history items have been selected or recorded. Social History Social and Psychosocial Habits Alcohol 09/13/2015 Use: Never Employment/School 09/13/2015 Status: Retired Substance Abuse 09/13/2015 Use: None Tobacco 09/13/2015 Use: Current every day smoker Type: Cigarettes Exposure to Tobacco Smoke Pt. current everyday smoker Cigarette Smoking Last 365 Days Yes Reg Smoking Cessation Counseling No . Physical Examination VS/Measurements Measurements from flowsheet : Measurements 09/13/2015 17:23 Heparin Dosing Weight (kg) 91.66 09/13/2015 17:22 Height 170.18 cm Height Collection Method Stated Weight 130 kg Dosing Weight Difference Percent 7.924 % Dosing Weight Collection Method Measured Body Surface Area 2.479 m2 Body Mass Index 44.89 m2 , Vital Signs (last 24 hrs) Last Charted Temp Oral 97.1 DegF (SEP 13 00:08) Heart Rate Apical 76 bpm (SEP 12 23:00) SBP 109 mmHg (SEP 12 23:00) DBP 66 mmHg (SEP 12:00) Weight 130 kg (SEP 12:22) Height 170.18 cm (SEP 12:22) BMI 44.89 (SEP 12:) Intake and Output I/O Intake Output Balance 09/13/2015 7a-3p 0.00 0.00 0.00 3p-11p 0.00 745.00 -745.00 11p-7a 0.00 0.00 0.00 As of 05:03 Totals 0.00 745.00 -745.00 09/12/2015 7a-3p 0.00 0.00 0.00 3p-11p 0.00 0.00 0.00 11p-7a 0.00 0.00 0.00 Totals 0.00 0.00 0.00 General: Alert and oriented, No acute distress. Eye: Pupils are equal, round and reactive to light, Extraocular movements are intact, Normal conjunctiva. HENT: Normocephalic, Tympanic membranes are clear. Neck: Supple, Non-tender, No carotid bruit, No jugular venous distention. Respiratory: Lungs are clear to auscultation, Respirations are non-labored, Breath sounds are equal, Symmetrical chest wall expansion. Cardiovascular: Normal rate, Regular rhythm, No murmur, Good pulses equal in all extremities, Normal peripheral perfusion, 2+ peripheral edema to knees BLE. Gastrointestinal: Soft, Non-tender, distended, not tight abdomen, fluid wave+. Lymphatics: No lymphadenopathy neck, axilla, groin. Musculoskeletal Normal range of motion. Normal strength. No tenderness. Neurologic: Alert, Oriented, Normal sensory, Normal motor function, No focal deficits. Cognition and Speech: Oriented, Speech clear and coherent, Functional cognition intact. Psychiatric: Cooperative, Appropriate mood and affect, Normal judgment. Review / Management Results review: Labs (Last four charted values) Hgb L 12.3 (SEP 12) Na 138 (SEP 12) K 4.2 (SEP 12) CO2 27 (SEP 12) Cl 105 (SEP 12) Cr 0.94 (SEP 12) BUN 13 (SEP 12) Glucose Random H 116 (SEP 12) Mg 2.3 (SEP 12) Phos 3.2 (SEP 12) Ca 8.6 (SEP 12) Troponin <0.02 (SEP 12) CK MB 1.4 (SEP 12) Total CK 90 (SEP 12) . Impression and Plan 70 HM: HTN and putative liver cirrhosis [facility] with concern for tamponade Pericardial Effusion with dizziness and syncopal episode -read as moderate in OSH -Formal TTE ordered: pending read of TTE, consult CV Surgery Liver Cirrhosis -lasix and aldactone at home, for ascities/ BLE 2+ pitting edema to knees -do not diurese in setting of tamponade HTN -losartan at home (held) -hold antihypertensives in setting of possible tamponade Ppx: heparin Diet: heart healthy Plan: contact CV surgery in AM, pending possible intervention in pericardial effusion Addendum by Jesse Jackson MD on 09/14/2015 08:56 I have personally seen and examined the patient with the resident. I agree with the management and plan as discussed, and outlined in the note. 09/16/2015 [facility] Plan of Care Plan of Care Date Source Discharge Date 01/31/18 8:39pm Disposition LEFT AFTER MEDICAL SCREENING Condition at Discharge Stable Instructions/Education Provided Back Pain Forms Provided Work/School Excuse Prescriptions See Medication Section 01/31/2018 [facility] Social History Social History Date Source Social History Problem Response Recorded Date/Time Onset Date Status Hx Psychiatric Problems No 11/08/2015 5:32pm Not Applicable Not Applicable Hx Eating Disorder No 11/08/2015 5:32pm Not Applicable Not Applicable Hx Substance Use Disorder No 11/08/2015 5:32pm Not Applicable Not Applicable Hx Depression No 11/08/2015 5:32pm Not Applicable Not Applicable Hx Alcohol Use No 11/08/2015 5:32pm Not Applicable Not Applicable Hx Substance Use Treatment No 11/08/2015 5:32pm Not Applicable Not Applicable Hx Physical Abuse No 11/08/2015 5:32pm Not Applicable Not Applicable 01/31/2018 [facility] Social History TypeResponse Substance Abuse Use: None. Employment/School Status: Retired. Alcohol Never Smoking Status Former smoker; Type: Cigarettes; Exposure to Tobacco Smoke Pt. current everyday smoker; Cigarette Smoking Last 365 Days No; Reg Smoking Cessation Counseling No1 entered on: 12/15/18 1quit about 2 years ago 09/13/2015 HAZEL Wolf Social History TypeResponse Substance Abuse Use: None. Employment/School Status: Retired. Alcohol Never Smoking Status Former smoker; Type: Cigarettes; Exposure to Tobacco Smoke Pt. current everyday smoker; Cigarette Smoking Last 365 Days No; Reg Smoking Cessation Counseling No1 entered on: 07/20/18 1quit about 2 years ago 09/13/2015 HAZEL Hazel Social History TypeResponse Substance Abuse Use: None. Employment/School Status: Retired. Alcohol Never Smoking Status Former smoker; Type: Cigarettes; Exposure to Tobacco Smoke Pt. current everyday smoker; Cigarette Smoking Last 365 Days No; Reg Smoking Cessation Counseling No1 entered on: 12/15/18 1quit about 2 years ago 09/13/2015 [facility] Social History TypeResponse Substance Abuse Use: None. Employment/School Status: Retired. Alcohol Never Smoking Status Former smoker; Type: Cigarettes; Exposure to Tobacco Smoke Pt. current everyday smoker; Cigarette Smoking Last 365 Days Yes; Reg Smoking Cessation Counseling No 09/13/2015 [facility] Social History TypeResponse Substance Abuse Use: None. Employment/School Status: Retired. Alcohol Never Smoking Status Former smoker; Type: Cigarettes; Exposure to Tobacco Smoke Pt. current everyday smoker; Cigarette Smoking Last 365 Days No; Reg Smoking Cessation Counseling No1 entered on: 11/20/18 1quit about 2 years ago 09/13/2015 [facility] Family History No Data Provided for This Section Advance Directives Order Name Results Value Date Source Advance Directives Advance Directives Directive Response Recorded Date/Time Does the patient have an advance directive? No 11/08/15 5:32pm If yes, is advance directive on file with [facility]? No 09/04/15 2:56pm If not on file with [facility] will patient provide a copy? No 04/03/17 8:15am 01/31/2018 [facility] Functional Status No Data Provided for This Section
--- OUTSIDE RECORDS SUMMARY | 2019-03-07 07:30 | XMS REPORT | Summary of Care ---
Author Author [facility] Organization [facility] Address Unknown Phone Unavailable Encounter LESLIE Mccartney(ELEAZAR) [id number] Date(s): 07/21/18 - 07/21/18 [facility] [address] [place] [address]- Encounter Diagnosis Other cirrhosis of liver (Final) - 08/04/18 Portal hypertension (Final) - Other diseases of stomach and duodenum (Final) - Chronic superficial gastritis without bleeding (Final) - Other chcf (current) drug therapy (Final) - Personal history of nicotine dependence (Final) - Essential (primary) hypertension (Final) - Nonalcoholic steatohepatitis (TODD) (Final) - Personal history of other infectious and parasitic diseases (Final) - Obesity, unspecified (Final) - Body mass index (BMI) 35.0-35.9, adult (Final) - Discharge Disposition: Home or Self Care Attending Physician: Teto Guajardo MD Referring Physician: Teto Guajardo MD Vital Signs 1 2 3 Most recent to oldest [Reference Range]: 167.64 cm (07/21/18 11:29 AM) 167.64 cm (07/20/18 10:36 AM) Height 133/92 mmHg (07/21/18 2:46 PM) 143/75 mmHg *HI* (07/21/18 2:00 PM) 126/67 mmHg (07/21/18 1:47 PM) Blood Pressure [90-140/60-90 mmHg] 16 BRMIN (07/21/18 2:46 PM) 18 BRMIN (07/21/18 2:00 PM) 15 BRMIN (07/21/18 1:47 PM) Respiratory Rate [14-20 BRMIN] 79 bpm (07/21/18 11:29 AM) Peripheral Pulse Rate [60-100 bpm] 124.091 kg (07/21/18 11:29 AM) 98.636 kg (07/20/18 10:36 AM) Weight 44.16 m2 (07/21/18 11:29 AM) 35.1 m2 (07/20/18 10:36 AM) Body Mass Index Problem List Condition Effective Dates Status Health Status Informant Ascites(Confirmed) Active Chronic constrictive Active pericarditis(Confirm ed) Cirrhosis of Active liver(Confirmed) H/O Active pericarditis(Confirm ed) HTN Resolved (hypertension)(Confi rmed) Liver Active masses(Confirmed) Morbid Active obesity(Confirmed) TODD (nonalcoholic Active steatohepatitis)(Con firmed) Bilateral shoulder Active pain(Confirmed) Allergies, Adverse Reactions, Alerts Substance Reaction Severity Status omeprazole pantoprazole Active spironolactone Active pantoprazole Active Medications docusate 100 mg, PO, BID, 0 Refill(s) Start Date: 07/21/18 Status: Ordered triamcinolone topical 0.1% ointment See Instructions, TOP TID, 0 Refill(s) Start Date: 07/21/18 Status: Ordered Results No data available for this section Immunizations No data available for this section [...]
--- OUTSIDE RECORDS SUMMARY | 2019-03-07 07:30 | XMS REPORT | Summary of Care ---
Author Author [facility] Organization [facility] Address Unknown Phone Unavailable Encounter LESLIE Mccartney(ELEAZAR) [id number] Date(s): 12/15/18 - 12/15/18 [facility] [address] [facility] [address] [place] [address]- Discharge Disposition: Home or Self Care Attending Physician: Mar Lobo NP Referring Physician: Mar Lobo NP Vital Signs Most recent to 1 oldest [Reference Range]: Height 167.64 cm (12/15/18 11:49 AM) Blood Pressure 139/84 mmHg [90-140/60-90 mmHg] (12/15/18 11:49 AM) Peripheral Pulse 83 bpm Rate [60-100 bpm] (12/15/18 11:49 AM) Weight 126.364 kg (12/15/18 11:49 AM) Body Mass Index 44.96 m2 (12/15/18 11:49 AM) Problem List Condition Effective Dates Status Health Status Informant Ascites(Confirmed) Active Chronic constrictive Active pericarditis(Confirm ed) Cirrhosis of Active liver(Confirmed) H/O Active pericarditis(Confirm ed) HTN Resolved (hypertension)(Confi rmed) Liver Active masses(Confirmed) Morbid Active obesity(Confirmed) TODD (nonalcoholic Active steatohepatitis)(Con firmed) Bilateral shoulder Active pain(Confirmed) Allergies, Adverse Reactions, Alerts Substance Reaction Severity Status omeprazole pantoprazole Active spironolactone Active pantoprazole Active Medications aMILoride 5 mg oral tablet 15 mg=3 tab, PO, Daily, # 270 tab, 5 Refill(s), Pharmacy: [facility] [id number], Please discontinue all previous RX of amiloride Start Date: 12/15/18 Stop Date: 06/07/20 Status: Ordered Results Most recent to 1 oldest [Reference Range]: H pylori Breath Test Negative (12/15/18 1:16 PM) Immunizations No data available for this section [...]
--- OUTSIDE RECORDS SUMMARY | 2019-03-07 07:30 | XMS REPORT | Summary of Care ---
Author Author [facility] Outpatient Imaging - [facility] Outpatient Imaging - [facility] Address Unknown Phone Unavailable Encounter LESLIE Mccartney(ELEAZAR) [id number] Date(s): 07/08/18 - 07/08/18 [facility] Outpatient Imaging - [facility] [address] [place] [address]- Attending Physician: Mar Lobo NP Referring Physician: Mar Lobo NP Vital Signs No data available for this section Problem List Condition Effective Dates Status Health Status Informant Ascites(Confirmed) Active Chronic constrictive Active pericarditis(Confirm ed) Cirrhosis of Active liver(Confirmed) H/O Active pericarditis(Confirm ed) HTN Resolved (hypertension)(Confi rmed) Liver Active masses(Confirmed) Morbid Active obesity(Confirmed) TODD (nonalcoholic Active steatohepatitis)(Con firmed) Bilateral shoulder Active pain(Confirmed) Allergies, Adverse Reactions, Alerts Substance Reaction Severity Status omeprazole pantoprazole Active spironolactone Active pantoprazole Active Medications No data available for this section Results No data available for this section [...]
--- OUTSIDE RECORDS SUMMARY | 2019-03-07 07:30 | XMS REPORT | Summary of Care ---
Author Author [facility] Organization [facility] Address Unknown Phone Unavailable Encounter HQ Bib(ELEAZAR) [id number] Date(s): 11/20/18 - 11/20/18 [facility] [address] [place] [address]- Encounter Diagnosis Acute diverticulitis (Discharge Diagnosis) - 11/20/18 Accidental fall (Discharge Diagnosis) - 11/20/18 Bilateral back pain (Discharge Diagnosis) - 11/20/18 Abrasion of right forearm (Discharge Diagnosis) - 11/20/18 Discharge Disposition: Home or Self Care Attending Physician: Tadeo Rogers MD Vital Signs Most recent to 1 2 oldest [Reference Range]: Height 167.64 cm (11/20/18 4:36 PM) Temperature Oral 98.6 DegF 98.4 DegF [96.4-99.1 DegF] (11/20/18 11:25 PM) (11/20/18 4:36 PM) Blood Pressure 150/86 mmHg 123/62 mmHg [90-140/60-90 mmHg] *HI* (11/20/18 4:36 PM) (11/20/18 11:25 PM) Respiratory Rate 18 BRMIN 18 BRMIN [14-20 BRMIN] (11/20/18 11:25 PM) (11/20/18 4:36 PM) Peripheral Pulse 90 bpm 82 bpm Rate [60-100 bpm] (11/20/18 11:25 PM) (11/20/18 4:36 PM) Weight 127 kg (11/20/18 4:36 PM) Body Mass Index 45.19 m2 (11/20/18 4:36 PM) Problem List Condition Effective Dates Status Health Status Informant Ascites(Confirmed) Active Chronic constrictive Active pericarditis(Confirm ed) Cirrhosis of Active liver(Confirmed) H/O Active pericarditis(Confirm ed) HTN Resolved (hypertension)(Confi rmed) Liver Active masses(Confirmed) Morbid Active obesity(Confirmed) TODD (nonalcoholic Active steatohepatitis)(Con firmed) Bilateral shoulder Active pain(Confirmed) Allergies, Adverse Reactions, Alerts Substance Reaction Severity Status omeprazole pantoprazole Active spironolactone Active pantoprazole Active Medications baclofen 20 mg oral tablet 20 mg=1 tab, PO, TID, PRN Spasms, # 90 tab, 0 Refill(s) Start Date: 11/20/18 Status: Ordered Cipro 500 mg oral tablet 500 mg=1 tab, PO, Q12H, X 10 day, # 20 tab, 0 Refill(s) Start Date: 11/20/18 Stop Date: 11/30/18 Status: Ordered Flagyl 500 mg oral tablet 500 mg=1 tab, PO, Q8H, X 10 day, # 30 tab, 0 Refill(s) Start Date: 11/20/18 Stop Date: 11/30/18 Status: Ordered morphine Sulfate 4 mg, 1 mL, Route: IVP, Drug form: SOLN, ONCE, Dosing Weight 127, kg, Priority: STAT, Start date: 11/20/18 20:23:00 CDT, Stop date: 11/20/18 20:23:00 CDT Notes: (Same as:MORPhine Sulfate) Start Date: 11/20/18 Stop Date: 11/20/18 Status: Completed morphine Sulfate 4 mg, 1 mL, Route: IVP, Drug form: SOLN, ONCE, Dosing Weight 127, kg, Priority: STAT, Start date: 11/20/18 17:56:00 CDT, Stop date: 11/20/18 17:56:00 CDT Notes: (Same as:MORPhine Sulfate) Start Date: 11/20/18 Stop Date: 11/20/18 Status: Completed Motrin 800 mg, Route: PO, Drug form: TAB, ONCE, Dosing Weight 127, kg, Priority: STAT, Start date: 11/20/18 21:24:00 CDT, Stop date: 11/20/18 21:24:00 CDT Start Date: 11/20/18 Stop Date: 11/20/18 Status: Completed ondansetron 4 mg, 2 mL, Route: IVP, Drug form: INJ, ONCE, Dosing Weight 127, kg, Priority: S TAT, Start date: 11/20/18 20:23:00 CDT, Stop date: 11/20/18 20:23:00 CDT Notes: (Same as: Shira) MEDICATION WASTE Product Size: 4 mgProduct Was ranjit: ___ mg Start Date: 11/20/18 Stop Date: 11/20/18 Status: Completed ondansetron 4 mg, 2 mL, Route: IVP, Drug form: INJ, ONCE, Dosing Weight 127, kg, Priority: S TAT, Start date: 11/20/18 17:56:00 CDT, Stop date: 11/20/18 17:56:00 CDT Notes: (Same as: Shira) MEDICATION WASTE Product Size: 4 mgProduct Was ranjit: ___ mg Start Date: 11/20/18 Stop Date: 11/20/18 Status: Completed Ultram 50 mg oral tablet 50 mg=1 tab, PO, Q6H, PRN Pain Score 1-5, X 3 day, # 12 tab, 0 Refill(s) Start Date: 11/20/18 Stop Date: 11/23/18 Status: Ordered Valium 2.5 mg, Route: PO, Drug form: TAB, ONCE, Dosing Weight 127, kg, Priority: STAT, Start date: 11/20/18 21:31:00 CDT, Stop date: 11/20/18 21:31:00 CDT Start Date: 11/20/18 Stop Date: 11/20/18 Status: Completed Valium 2.5 mg, 0.5 tab, Route: PO, Drug form: TAB, ONCE, Dosing Weight 127, kg, Priorit y: STAT, Start date: 11/20/18 22:33:00 CDT, Stop date: 11/20/18 22:33:00 CDT Notes: (Same as: Valium) Start Date: 11/20/18 Stop Date: 11/20/18 Status: Completed Valium 2 mg, Route: IVP, Drug form: INJ, ONCE, Dosing Weight 127, kg, Priority: STAT, S tart date: 11/20/18 21:25:00 CDT, Stop date: 11/20/18 21:25:00 CDT Start Date: 11/20/18 Stop Date: 11/20/18 Status: Discontinued Results Most recent to 1 oldest [Reference Range]: Neutrophils # 4.5 K/CMM [1.5-8.1 K/CMM] (11/20/18 6:32 PM) Lymphocytes # 1.5 K/CMM [1.0-5.5 K/CMM] (11/20/18 6:32 PM) Monocytes # [0.0-0.8 0.7 K/CMM K/CMM] (11/20/18 6:32 PM) Eosinophils # 0.1 K/CMM [0.0-0.5 K/CMM] (11/20/18 6:32 PM) eGFR 73 mL/min/1.73m2 1 *NA* (11/20/18 6:32 PM) AGAP [10.0-20.0 8.8 mEq/L mEq/L] *LOW* (11/20/18 6:32 PM) Basophils [0.0-1.0 0.5 % %] (11/20/18 6:32 PM) BUN [7-22 mg/dL] 16 mg/dL (11/20/18 6:32 PM) Calcium Lvl 8.1 mg/dL [8.5-10.5 mg/dL] *LOW* (11/20/18 6:32 PM) Chloride Lvl [95-109 107 mEq/L mEq/L] (11/20/18 6:32 PM) CO2 [24-32 mEq/L] 27 mEq/L (11/20/18 6:32 PM) Creatinine Lvl 1.01 mg/dL [0.50-1.40 mg/dL] (11/20/18 6:32 PM) Eosinophils [0.0-4.0 1.9 % %] (11/20/18 6:32 PM) Glucose Lvl [70-99 111 mg/dL mg/dL] *HI* (11/20/18 6:32 PM) Hct [42.0-54.0 %] 46.1 % (11/20/18 6:32 PM) Hgb [14.0-18.0 g/dL] 15.0 g/dL (11/20/18 6:32 PM) Potassium Lvl 3.8 mEq/L [3.5-5.1 mEq/L] (11/20/18 6:32 PM) Lymphocytes 21.9 % [20.0-40.0 %] (11/20/18 6:32 PM) MCH [27.0-31.0 pg] 31.2 pg *HI* (11/20/18 6:32 PM) MCHC [32.0-36.0 32.6 g/dL g/dL] (11/20/18 6:32 PM) MCV [80.0-94.0 fL] 95.7 fL *HI* (11/20/18 6:32 PM) Monocytes [2.0-12.0 9.7 % %] (11/20/18 6:32 PM) MPV [7.4-10.4 fL] 9.8 fL (11/20/18 6:32 PM) Sodium Lvl [135-145 139 mEq/L mEq/L] (11/20/18 6:32 PM) Platelet [133-450 142 K/CMM K/CMM] (11/20/18 6:32 PM) Segs [45.0-75.0 %] 66.0 % (11/20/18 6:32 PM) RBC [4.70-6.10 4.81 M/CMM M/CMM] (11/20/18 6:32 PM) RDW [11.5-14.5 %] 15.1 % *HI* (11/20/18 6:32 PM) Troponin-I <0.02 ng/mL [0.00-0.40 ng/mL] (11/20/18 6:32 PM) WBC [3.7-10.4 K/CMM] 6.8 K/CMM (11/20/18 6:32 PM) 1Result Comment: The eGFR is calculated [...] on: 11/20/18 1quit about 2 years ago Assessment and Plan No data available for this section
--- OUTSIDE RECORDS SUMMARY | 2019-03-07 07:30 | XMS REPORT | Summary of Care ---
Author Author [facility] Outpatient Imaging [place] Organization [facility] Outpatient Imaging [place] Address Unknown Phone Unavailable Encounter HQ Sonya_leila(FIN) [id number] Date(s): 11/05/18 - 11/05/18 [facility] Outpatient Imaging [place] [address] [place] [phone] Discharge Disposition: Home or Self Care Attending Physician: Teto Guajardo MD Referring Physician: Teto Guajardo MD Vital Signs No data available for this [...] on: 07/20/18 1quit about 2 years ago Assessment and Plan No data available for this section
[2019-03-07] MEDS ORDERED: KETOROLAC TROMETHAMINE 30 MG/ML VIAL ONE (07:45)
--- NOTE | 2019-03-07 07:46 | NUR ---
TORADOL 30MG IVP PER MD
[2019-03-07] MEDS ORDERED: KETOROLAC TROMETHAMINE 30 MG/ML VIAL IV ONE (08:00)
[2019-03-07 08:02] LABS: BASOPHILS % 0.3 % (0.0-1.0); EOSINOPHILS # (AUTO) 0.2 (0.0-0.4); EOSINOPHILS % 2.1 % (0.0-6.0); HEMATOCRIT 44.4 % (38.2-49.6); HEMOGLOBIN 14.4 g/dL (14.0-18.0); LYMPHOCYTES # (AUTO) 1.5 (1.0-3.2); LYMPHOCYTES % 18.6 % (18.0-39.1); MEAN CORPUSCULAR HGB CONC 32.4 g/dL (31-35); MEAN CORPUSCULAR VOLUME 95.5 fL (81-99); MONOCYTES # (AUTO) 0.6 (0.2-0.8); MONOCYTES % 7.8 % (4.4-11.3); NEUTROPHILS # (AUTO) 5.5 (2.1-6.9); NEUTROPHILS % 70.9 % (38.7-80.0); PLATELET COUNT 184 x10e3/uL (140-360); RED BLOOD COUNT 4.65 x10e6/uL (4.3-5.7)
[2019-03-07] MEDS ORDERED: POTASSIUM CHLO10 MEQ PO (08:11)
[2019-03-07] MEDS ORDERED: SENNA LAX8.6 MG PO (08:11)
[2019-03-07 08:20] LABS: AMYLASE 49 U/L (25-125); LIPASE 16 U/L (8-78)
[2019-03-07 08:21] LABS: BILIRUBIN,URINE NEGATIVE (NEGATIVE); CLARITY,URINE SL CLOUDY (CLEAR); COLOR,URINE YELLOW (YELLOW); KETONES,URINE NEGATIVE (NEGATIVE); LEUKOCYTE ESTERASE ,URINE NEGATIVE (NEGATIVE); NITRITE,URINE NEGATIVE (NEGATIVE); PROTEIN,URINE DIPSTICK NEGATIVE (NEGATIVE); URINE UROBILINOGEN 1 mg/dL (0.2 - 1)
[2019-03-07 08:23] LABS: ALANINE AMINOTRANSFERASE 17 IU/L (0-55); ALBUMIN 3.4 g/dL (3.5-5.0); ALBUMIN/GLOBULIN RATIO 0.8 (0.8-2.0); ALKALINE PHOSPHATASE 92 IU/L (40-150); ANION GAP 11.6 mmol/L (8-16); BLOOD UREA NITROGEN 13 mg/dL (7-26); BUN/CREATININE RATIO 16 (6-25); CALCIUM 8.9 mg/dL (8.4-10.2); CARBON DIOXIDE 28 mmol/L (22-29); CHLORIDE 103 mmol/L (98-107); CREATINE KINASE 29 IU/L (30-200); CREATININE, SERUM 0.81 mg/dL (0.72-1.25); EST GLOMERULAR FILTRATION RATE > 60 ML/MIN (60-); GLUCOSE 114 mg/dL (74-118); POTASSIUM 3.6 mmol/L (3.5-5.1); SODIUM 139 mmol/L (136-145)
--- NOTE | 2019-03-07 08:30 | NUR ---
RADIOLOGY AT BEDSIDE FOR CXR.
[2019-03-07 08:33] LABS: BACTERIA,URINE MODERATE /HPF; EPITHELIAL CELLS,URINE FEW /LPF; RBC,URINE 0-5 /HPF (0-5); WBC,URINE (MAN) 0-5 /HPF (0-5)
--- NOTE | 2019-03-07 08:50 | Diagnostic Imaging Report ---
EXAM: CHEST SINGLE (PORTABLE) DATE: 03/07/2019 7:31 AM INDICATION: Right-sided pain COMPARISON: None FINDINGS: The trachea is midline. The lungs are symmetrically expanded without evidence for large focal consolidation, pneumothorax, or significant pleural effusion. The cardiac silhouette appears magnified by technique. Mediastinal contours are unremarkable. No acute osseous abnormalities identified. IMPRESSION: No acute cardiopulmonary process identified. Signed by: Dr. Hugo Whitten MD on 03/07/2019 8:46 AM
--- NOTE | 2019-03-07 09:30 | NUR ---
PT REPORTS DIFFICULTY SPEAKING. PT'S FACE EXTREMELY RED. A&OX3, DENIES CP OR SOB.
--- NOTE | 2019-03-07 09:30 | NUR ---
pt stated face numb and was flushed from neck up. pt checked and eval with neg cinncinatti stroke scale. aaox4. stat ct.
[2019-03-07] MEDS ORDERED: METHYLPREDNISOLONE SOD SUCC 125 MG/2ML VIAL ONE (09:43)
[2019-03-07] MEDS ORDERED: DIPHENHYDRAMINE HCL INJ 50 MG/ML VIAL ONE (09:43)
[2019-03-07] MEDS ORDERED: EPINEPHRINE HCL 1:1000 1ML 1 MG/ML AMP ONE (09:46)
--- NOTE | 2019-03-07 09:46 | NUR ---
PT BROUGHT BACK TO 11. DR. SHAFER AT BEDSIDE. CRASHCART AT BEDSIDE AND PLACED ON LIFEPACK. Addendum: 03/07/19 at 1001 by EDNA PT BROUGHT BACK TO RM 11. DR. SHAFER AT BEDSIDE. OXYGEN 2LPM NC PLACED ON PT. CRASHCART AT BEDSIDE AND PLACED ON [facility].
--- NOTE | 2019-03-07 09:53 | Diagnostic Imaging Report ---
CT of the abdomen and pelvis, with contrast. History: Right flank pain. Comparison: None available. Technique: Multidetector CT scanning of the abdomen and pelvis was performed from the level of the lung bases to the inferior pubic rami after intravenous contrast material only. Coronal and sagittal multiplanar reformations were obtained. RADIATION DOSE: Total DLP: 789.96 mGy*cm Dose modulation, iterative reconstruction, and/or weight based adjustment of the mA/kV was utilized to reduce the radiation dose to as low as reasonably achievable. Findings: The lung bases are clear. The imaged portion of the heart demonstrates no significant abnormalities. The liver is normal in size and attenuation without evidence for focal abnormality. The gallbladder is unremarkable. There is no biliary ductal dilatation. The stomach, spleen, pancreas, and bilateral adrenal glands are unremarkable. Incidentally noted is a splenule adjacent to the spleen. The kidneys are normal in size and location concentrate contrast material properly. There is no evidence for nephrolithiasis or hydronephrosis. There is a 5.2 x 4.8 m simple cyst identified arising off the inferior pole the right kidney. There is a 3.4 x 4.2 cm simple cyst identified arising off the inferior pole the left kidney. The ureters are normal course and caliber. The urinary bladder and prostate are grossly unremarkable. The abdominal aorta is normal course and caliber. The IVC is unremarkable. Please note evaluation the bowel is limited without the use of enteric contrast material. The visualized loops of small and large bowel demonstrate no evidence of obstruction or inflammation. Extensive diverticula are noted within the sigmoid colon without evidence for acute diverticulitis. There is no ascites or intraperitoneal free air. No abnormally enlarged lymph nodes are identified within the abdomen or pelvis. There is a fat-containing abdominal hernia present. There is a prominent left inguinal hernia containing mesenteric fat and small amount of fluid. Degenerative changes of the thoracolumbar spine. The osseous structures demonstrate no evidence for acute fracture or destructive process. The extraperitoneal soft tissues are unremarkable. IMPRESSION: No acute abdominopelvic process identified. Diverticulosis without evidence for acute diverticulitis. Signed by: Dr. Hugo Whitten MD on 03/07/2019 9:50 AM
--- NOTE | 2019-03-07 09:58 | NUR ---
PT RESPONDING TO MEDICATIONS GIVEN. FACIAL REDNESS DEMINISHED. "I AM FEELING A LOT BETTER". PT DENIES CP OR SOB. WILL CONTINUE TO MONITOR.
[2019-03-07] MEDS ORDERED: METHYLPREDNISOLONE SOD SUCC 125 MG/2ML VIAL IV ONE (10:00)
[2019-03-07] MEDS ORDERED: EPINEPHRINE HCL 1:1000 1ML 4 MG in DEXTROSE 5% 250ML 250 ML IV STA (10:11)
[2019-03-07] MEDS ORDERED: EPINEPHRINE 0.3 MG/0.3 ML PEN.INJCTR SC STA (10:13)
[2019-03-07] MEDS ORDERED: DIPHENHYDRAMINE HCL INJ 50 MG/ML VIAL IV ONE (10:30)
[2019-03-07] MEDS ORDERED: ONDANSETRON HCL INJ 2MG/ML 2ML 2 MG/ML VIAL ONE (10:32)
[2019-03-07] MEDS ORDERED: ONDANSETRON HCL INJ 2MG/ML 2ML 2 MG/ML VIAL IV ONE (11:00)
[2019-03-07 12:26] VITALS: BP 139/70
[2019-03-07] MEDS ORDERED: IOPAMIDOL 370 MG/ML 200 ML INFUS..BTL INJ ONE (14:15)
[2019-03-07] MEDS ORDERED: SODIUM CHLORIDE 0.9% 50ML 50 ML ONE (14:15)
== END 2019-03-07 13:04 | disposition home or self-care (01) ==
LOC: ER 07:24
DX: R10.11 Right upper quadrant pain (principal)
CPT/HCPCS: 36415; 71045; 74177; 80053; 81001; 82150; 82550; 82553; 83605; 83690; 84484; 85025; 93005; 99284; J0171; J1200; J1885; J2405; J2930; Q9967

== ENCOUNTER 2019-03-09 09:25 | Emergency (ER) | payer MEDICARE ==
[~2019-03-09] VITALS: Ht 167.6 cm; Wt 122.9 kg
[~2019-03-09 09:25] MED LIST changes: +POTASSIUM CHLO10 MEQ PO; +SENNA LAX8.6 MG PO
--- OUTSIDE RECORDS SUMMARY | 2019-03-09 09:29 | XMS REPORT | Clinical Summary ---
Author Author [facility] Organization [facility] Address Unknown Phone Unavailable Care Team Providers Care Data Lead Name Role Phone Chris Geller MD PCP Allergies No Known Allergies Medications Not on file Active Problems Not on file Social History Date Tobacco Use Types Packs/Day Years Used Never Assessed Sex Assigned at Date Recorded Not on file Industry Job Start Date Occupation Not on file Not on file Not on file Travel End Travel History Travel Start No recent travel history available. Last Filed Vital Signs Not on file Plan of Treatment Not on file Results Not on fileafter 03/08/2018 Insurance Payer Benefit Subscriber ID Type Phone Address Plan / Group [employer] TEX[employer] xxxxxxxxx [facility] ALL Contracted MEDICAID MEDICAID xxxxxxxxx [place] (Home) [place] [address]
--- OUTSIDE RECORDS SUMMARY | 2019-03-09 09:29 | XMS REPORT | Clinical Summary ---
Author Author [employer] Address Unknown Phone Unavailable Care Team Providers Care Supervisor [employer] Department Name Role Phone Chris Geller MD PCP Allergies Comments Active Allergy Reactions Severity Noted Date Constipation, shoulder pain, upset stomach Omeprazole 05/10/2018 Constipation, upset stomach, shoulder pain Pantoprazole 05/10/2018 Sever constipation, throat swelling, ear ringing Spironolactone 05/10/2018 Medications End Date Status Medication Sig Dispensed Refills Start Date Active folic Take 1 tablet 0 acid/multivit-min/lutein by mouth (CENTRUM SILVER ORAL) daily. Active ibuprofen (ADVIL,MOTRIN) Take 800 mg 0 800 MG tablet by mouth every 6 (six) hours as needed for mild pain. Active diazePAM (VALIUM) 2 MG Take 2 mg by 0 tablet mouth every 6 (six) hours as needed for anxiety. Active AMILoride (MIDAMOR) 5 MG Take 5 mg by 0 tablet mouth daily. Active traMADol (ULTRAM) 50 mg Take 50 mg by 0 tablet mouth every 12 (twelve) hours. Active chlorzoxazone (PARAFON Take 500 mg 0 FORTE) 500 mg tablet by mouth 2 (two) times a day. 11/23/2018 Discontinued (Alternate therapy) furosemide (LASIX) 20 mg Take 40 mg by 0 tablet mouth daily. 05/10/2018 Discontinued (Med List Cleanup) bisacodyl (DULCOLAX) 5 mg Take 5 mg by 0 EC tablet mouth daily as needed for constipation. 11/30/2018 Discontinued (Stop Taking at Discharge) docusate sodium (COLACE) Take 100 mg 0 100 MG capsule by mouth 2 (two) times a day. 11/23/2018 Discontinued (Alternate therapy) AMILoride (MIDAMOR) 5 MG Take 5 mg by 0 tablet mouth daily. 06/11/2018 famotidine (PEPCID) 20 MG Take 1 tablet 60 tablet 0 tablet (20 mg total) 8 by mouth 2 (two) times a day for 30 days. 11/30/2018 Discontinued (Stop Taking at Discharge) morPHINE 4 mg/mL Infuse 4 mg 0 injection into a venous catheter. 11/30/2018 Discontinued (Stop Taking at Discharge) ondansetron (ZOFRAN) 4 MG Take 4 mg by 0 tablet mouth every 8 (eight) hours as needed for nausea or vomiting. 11/30/2018 Discontinued (Stop Taking at Discharge) furosemide (LASIX) 40 mg Take 40 mg by 0 tablet mouth daily. 11/30/2018 Discontinued (Stop Taking at Discharge) ciprofloxacin (CIPRO) 500 Take 500 mg 0 MG tablet by mouth 2 9 (two) times a day. 12/30/2018 furosemide (LASIX) 40 mg Take 1 tablet 60 tablet 0 tablet (40 mg total) 9 by mouth 2 (two) times a day for 30 days. 12/30/2018 polyethylene glycol Take 17 g by 30 packet 0 (MIRALAX) 17 gram packet mouth daily 9 as needed for constipation for up to 30 days. 12/30/2018 sennosides-docusate Take 2 120 tablet 0 sodium (SENOKOT-S) 8.6-50 tablets by 9 mg per tablet mouth 2 (two) times a day for 30 days. 12/31/2018 potassium chloride Take 4 120 capsule 0 (MICRO-K) 10 MEQ CR capsules (40 9 capsule mEq total) by mouth daily for 30 days. Active Problems Problem Noted Date CHF (congestive heart failure) 11/23/2018 Epigastric pain 05/10/2018 Abdominal pain 05/10/2018 Volume overload 10/14/2017 Encounters Care Team Description Date Type Specialty Teto Guajardo MD Routine general medical examination at a health care facility (Primary Dx); Nonalcoholic steatohepatitis 12/21/2018 Lab Lab Ezekiel Miranda MD Lock, Jamila Mcleod MD Acute on chronic diastolic congestive heart failure (HCC) (Primary Dx); Hypervolemia, unspecified hypervolemia type 11/23/2018 Hospital Cardiology - Encounter 11/30/2018 Drew Bro MD 11/23/2018 Orders Only Critical Care Medicine Bryan Mendoza MD Lee, Kelvin M., MD Kumar, Varun, MD Epigastric abdominal pain (Primary Dx); Chest pain, unspecified type; Other cirrhosis of liver (HCC); Hypervolemia, unspecified hypervolemia type 05/10/2018 Emergency General Internal Medicine - 05/12/2018 after 03/08/2018 Social History Date Tobacco Use Types Packs/Day Years Used Quit: 05/10/2015 Former Smoker Smokeless Tobacco: Never Used Drinks/Week oz/Week Comments Alcohol Use No Sex Assigned at Date Recorded Not on file Industry Job Start Date Occupation Not on file Not on file Not on file Travel End Travel History Travel Start No recent travel history available. Last Filed Vital Signs Reading Time Taken Comments Vital Sign 147/82 11/30/2018 12:26 PM CDT Blood Pressure 91 11/30/2018 12:26 PM CDT Pulse 36.8 C (98.3 F) 11/30/2018 12:26 PM CDT Temperature 20 11/30/2018 12:26 PM CDT Respiratory Rate 95% 11/30/2018 12:26 PM CDT Oxygen Saturation - - Inhaled Oxygen Concentration 119 kg (262 lb 8 oz) 11/30/2018 5:10 AM CDT Weight 170.2 cm (5' 7") 05/10/2018 7:58 PM TOEING STOCKINGS Height 41.11 05/10/2018 7:58 PM TOEING STOCKINGS Body Mass Index Plan of Treatment Health Maintenance Due Date Last Done Comments COLONOSCOPY SCREENING 1994 SHINGLES VACCINES (#1) 1994 65+ PNEUMOCOCCAL VACCINE 2009 (1 of 2 - PCV13) INFLUENZA VACCINE 02/02/2019 Procedures Comments Procedure Name Priority Date/Time Associated Diagnosis ESTIMATED GFR Routine 12/21/2018 Routine general medical 11:20 AM CDT examination at a health care facility Nonalcoholic steatohepatitis ALPHA FETOPROTEIN Routine 12/21/2018 Routine general medical 11:20 AM CDT examination at a health care facility Nonalcoholic steatohepatitis PROTHROMBIN TIME WITH INR Routine 12/21/2018 Routine general medical 11:20 AM CDT examination at a health care facility Nonalcoholic steatohepatitis HEPATIC FUNCTION PANEL Routine 12/21/2018 Routine general medical 11:20 AM CDT examination at a health care facility Nonalcoholic steatohepatitis BASIC METABOLIC PANEL Routine 12/21/2018 Routine general medical 11:20 AM CDT examination at a health care facility Nonalcoholic steatohepatitis CBC HEMOGRAM Routine 12/21/2018 Routine general medical 11:20 AM CDT examination at a health care facility Nonalcoholic steatohepatitis POTASSIUM LEVEL Routine 11/30/2018 4:48 AM CDT ESTIMATED GFR Routine 11/30/2018 3:25 AM CDT BASIC METABOLIC PANEL Routine 11/30/2018 3:25 AM CDT ESTIMATED GFR Routine 11/29/2018 3:15 AM CDT MAGNESIUM LEVEL Routine 11/29/2018 3:15 AM CDT BASIC METABOLIC PANEL Routine 11/29/2018 3:15 AM CDT ESTIMATED GFR Routine 11/28/2018 3:54 AM CDT MAGNESIUM LEVEL Routine 11/28/2018 3:54 AM CDT BASIC METABOLIC PANEL Routine 11/28/2018 3:54 AM CDT POTASSIUM LEVEL Routine 11/27/2018 5:40 AM CDT ESTIMATED GFR Routine 11/27/2018 4:09 AM CDT MAGNESIUM LEVEL Routine 11/27/2018 4:09 AM CDT BASIC METABOLIC PANEL Routine 11/27/2018 4:09 AM CDT MAGNESIUM LEVEL Timed 11/26/2018 2:53 PM CDT POTASSIUM LEVEL Timed 11/26/2018 2:53 PM CDT ESTIMATED GFR Routine 11/26/2018 3:40 AM CDT BASIC METABOLIC PANEL Routine 11/26/2018 3:40 AM CDT HC COMPLETE BLD COUNT Routine 11/26/2018 W/AUTO DIFF 3:40 AM CDT ESTIMATED GFR Routine 11/25/2018 4:00 AM CDT BASIC METABOLIC PANEL Routine 11/25/2018 4:00 AM CDT HC COMPLETE BLD COUNT Routine 11/25/2018 W/AUTO DIFF 4:00 AM CDT ECHOCARDIOGRAM 2D Routine 11/24/2018 COMPLETE W MMODE SPECTRAL 12:40 PM CDT COLOR DOPPLER (83187) ALT (SGPT) Routine 11/24/2018 4:00 AM CDT AST (SGOT) Routine 11/24/2018 4:00 AM CDT ALKALINE PHOSPHATASE Routine 11/24/2018 4:00 AM CDT ESTIMATED GFR Routine 11/24/2018 4:00 AM CDT BASIC METABOLIC PANEL Routine 11/24/2018 4:00 AM CDT HC COMPLETE BLD COUNT Routine 11/24/2018 W/AUTO DIFF 3:10 AM CDT POTASSIUM LEVEL Routine 11/23/2018 5:41 PM CDT ALKALINE PHOSPHATASE Routine 11/23/2018 5:41 PM CDT AST (SGOT) Routine 11/23/2018 5:41 PM CDT ALT (SGPT) Routine 11/23/2018 5:41 PM CDT PHOSPHORUS LEVEL Routine 11/23/2018 5:41 PM CDT HC COMPLETE BLD COUNT Routine 11/23/2018 W/AUTO DIFF 2:50 PM CDT ESTIMATED GFR Routine 11/23/2018 2:00 PM CDT PHOSPHORUS LEVEL Routine 11/23/2018 2:00 PM CDT MAGNESIUM LEVEL Routine 11/23/2018 2:00 PM CDT LIPID PANEL Routine 11/23/2018 2:00 PM CDT COMPREHENSIVE METABOLIC Routine 11/23/2018 PANEL 2:00 PM CDT HC COMPLETE BLD COUNT Routine 05/12/2018 W/AUTO DIFF 4:40 AM TOEING STOCKINGS ESTIMATED GFR Routine 05/12/2018 4:00 AM TOEING STOCKINGS COMPREHENSIVE METABOLIC Routine 05/12/2018 PANEL 4:00 AM TOEING STOCKINGS ALPHA FETOPROTEIN Routine 05/12/2018 4:00 AM TOEING STOCKINGS US ABDOMEN COMPLETE Routine 05/11/2018 2:03 PM TOEING STOCKINGS US ABDOMINAL DOPPLER Routine 05/11/2018 1:57 PM TOEING STOCKINGS US CAROTID DUPLEX Routine 05/11/2018 BILATERAL 8:29 AM TOEING STOCKINGS ESTIMATED GFR Routine 05/11/2018 5:30 AM TOEING STOCKINGS LIPID PANEL Routine 05/11/2018 5:30 AM TOEING STOCKINGS HEPATIC FUNCTION PANEL Routine 05/11/2018 5:30 AM TOEING STOCKINGS BASIC METABOLIC PANEL Routine 05/11/2018 5:30 AM TOEING STOCKINGS HC COMPLETE BLD COUNT Routine 05/11/2018 W/AUTO DIFF 5:30 AM TOEING STOCKINGS TROPONIN Timed 05/10/2018 12:56 PM TOEING STOCKINGS US GALLBLADDER STAT 05/10/2018 11:05 AM TOEING STOCKINGS TROPONIN STAT 05/10/2018 9:07 AM TOEING STOCKINGS LIPASE LEVEL STAT 05/10/2018 9:07 AM TOEING STOCKINGS AMYLASE LEVEL STAT 05/10/2018 9:[address] ABDOMEN PELVIS W STAT 05/10/2018 CONTRAST 8:28 AM TOEING STOCKINGS AMMONIA LEVEL STAT 05/10/2018 7:06 AM TOEING STOCKINGS XR CHEST 1 VW PORTABLE STAT 05/10/2018 7:05 AM TOEING STOCKINGS AMYLASE LEVEL STAT 05/10/2018 5:15 AM TOEING STOCKINGS LIPASE LEVEL STAT 05/10/2018 5:15 AM TOEING STOCKINGS CREATINE KINASE, TOTAL STAT 05/10/2018 (CPK) 5:15 AM TOEING STOCKINGS PARTIAL THROMBOPLASTIN STAT 05/10/2018 TIME (PTT) 5:15 AM TOEING STOCKINGS ESTIMATED GFR STAT 05/10/2018 5:15 AM TOEING STOCKINGS PROTHROMBIN TIME WITH INR STAT 05/10/2018 5:15 AM TOEING STOCKINGS B NATRIURETIC PEPTIDE STAT 05/10/2018 5:15 AM TOEING STOCKINGS TROPONIN STAT 05/10/2018 5:15 AM TOEING STOCKINGS COMPREHENSIVE METABOLIC STAT 05/10/2018 PANEL 5:15 AM TOEING STOCKINGS HC COMPLETE BLD COUNT STAT 05/10/2018 W/AUTO DIFF 5:15 AM TOEING STOCKINGS ECG 12-LEAD STAT 05/10/2018 5:10 AM TOEING STOCKINGS after 03/08/2018 Results * Estimated GFR (12/21/2018 11:20 AM CDT) Only the most recent of 12 results within the time period is included. Estimated GFR 75 mL/min/1.73 m2 [place] Comment: [place] rpretation G1 >=90 Normal or high G2 60-89Mildly decreased [id number] Mildly to moderately decreased [id number] Moderately to severely decreased G4 15-29Severely decreased G5 <15Kidney failure The eGFR was calculated using the Chronic Kidney Disease Epidemiology Collaboration (CKD-EPI) equation. Interpretation is based on recommendations of the National Kidney Foundation-Kidney Disease Outcomes Quality Initiative (NKF-KDOQI) published in 2014. Specimen Plasma specimen Performing Organization Address City/[facility]/Zipcode Phone Number [facility] DEPARTMENT OF [address] [place] [address] PATHOLOGY AND [facility] MEDICINE [address] * Alpha fetoprotein (12/21/2018 11:20 AM CDT) Only the most recent of 2 results within the time period is included. Pathologist [facility] Alpha 3.9 0.0 - 8.3 ng/mL [place] fetoprotein Comment: [place] The Thelma 8000 AFP immunoassay HOSPITAL was used. Results obtained with different assay methods or kits should not be used interchangeably and may be different. Specimen Serum Performing Organization Address [facility] Phone Number [facility] DEPARTMENT [address] AND [address] * Prothrombin time with INR (12/21/2018 11:20 AM CDT) Only the most recent of 2 results within the time period is included. [facility] Prothrombin 14.2 11.5 - 14.5 sec [facility] INR 1.1 [place] Comment: [place] The International Normalized HOSPITAL Ratio (INR) is a therapeutic monitoring tool for patients who are stable on oral anticoagulant therapy. An INR of 2.0-3.0 is suggested for deep vein thrombosis/pulmonary embolism. Specimen Blood Performing Organization Address [facility] Phone Number [facility] [place] [address] PATHOLOGY AND [facility] MEDICINE [address] * CBC hemogram (12/21/2018 11:20 AM CDT) [facility] WBC 5.62 4.50 - 11.00 k/uL [facility] RBC 4.94 4.40 - 6.00 m/uL [facility] HGB 15.4 14.0 - 18.0 g/dL [facility] HCT 48.3 41.0 - 51.0 % [facility] MCV 97.8 82.0 - 100.0 fL [facility] MCH 31.2 27.0 - 34.0 pg [facility] MCHC 31.9 31.0 - 37.0 g/dL [facility] RDW - SD 51.4 37.0 - 55.0 [facility] MPV 11.6 8.8 - 13.2 [facility] Platelet count 160 150 - 400 k/uL [facility] Nucleated RBC 0.00 /100 WBC [facility] Specimen Blood Performing Organization Address City/[facility]ode Phone Number [facility] DEPARTMENT OF [address] [place] [address] PATHOLOGY AND GENOMIC MEDICINE [address] * Hepatic function panel (12/21/2018 11:20 AM CDT) Only the most recent of 2 results within the time period is included. Pathologist [facility] Albumin 3.4 (L) 3.5 - 5.0 g/dL [facility] Total bilirubin 1.1 0.0 - 1.2 mg/dL [facility] Bilirubin <0.2 0.0 - 0.3 mg/dL [facility] Alkaline 131 (H) 40 - 129 U/[facility] Protein 8.0 6.3 - 8.3 g/dL [place] Comment: [facility] 4.6-7.0 g/dL 1 week 4.4-7.6 g/dL 7 months-1year 5.1-7.3 g/dL 1-2 years5.6-7 .5 g/dL >3 years6.0-8 .0 g/dL 18-150 6.3-8.3 g/dL ALT 21 5 - 50 U/L [facility] AST 31 10 - 50 U/L [facility] Specimen Plasma specimen Performing Organization Address City/[facility] Phone Number [facility] DEPARTMENT OF [address] [place] [address] PATHOLOGY AND GENOMIC MEDICINE [address] * Basic metabolic panel (12/21/2018 11:20 AM CDT) Only the most recent of 9 results within the time period is included. Pathologist [facility] Sodium 139 135 - 148 mEq/L [facility] Potassium 3.9 3.5 - 5.0 mEq/L [facility] Chloride 99 98 - 112 mEq/L [facility] CO2 28 24 - 31 mEq/L [facility] Anion gap 12@ANIO 7 - 15 mEq/L [facility] BUN 16 8 - 23 mg/dL [facility] Creatinine 0.99 0.70 - 1.20 mg/dL [facility] Glucose 120 (H) 65 - 99 mg/dL [facility] Calcium 9.3 8.8 - 10.2 mg/dL [facility] Specimen Plasma specimen Performing Organization Address City/[facility] Phone Number [facility] DEPARTMENT OF [address] [place] [address] PATHOLOGY AND GENOMIC MEDICINE [address] * Potassium level (11/30/2018 4:48 AM CDT) Only the most recent of 4 results within the time period is included. Potassium 3.6 3.5 - 5.0 mEq/L [facility] Specimen Plasma specimen Performing Organization Address [facility] Phone Number [facility] [place] [address] PATHOLOGY AND GENOMIC MEDICINE [address] * Magnesium level (11/29/2018 3:15 AM CDT) Only the most recent of 5 results within the time period is included. Magnesium 2.3 1.6 - 2.4 mg/dL [facility] Specimen Plasma specimen Performing Organization Address [facility] Phone Number [facility] [place] [address] PATHOLOGY AND GENOMIC MEDICINE [address] * CBC with platelet and differential (11/26/2018 3:40 AM CDT) Only the most recent of 7 results within the time period is included. WBC 6.97 4.50 - 11.00 k/uL [facility] RBC 5.31 4.40 - 6.00 m/uL [facility] HGB 16.3 14.0 - 18.0 g/dL [facility] HCT 50.4 41.0 - 51.0 % [facility] MCV 94.9 82.0 - 100.0 fL [facility] MCH 30.7 27.0 - 34.0 pg [facility] MCHC 32.3 31.0 - 37.0 g/dL [facility] RDW - SD 49.1 37.0 - 55.0 fL [facility] MPV 11.4 8.8 - 13.2 fL [facility] Platelet count 165 150 - 400 k/uL [facility] Nucleated RBC 0.00 /100 WBC [facility] Neutrophils 62.6 39.0 - 69.0 % [facility] Lymphocytes 24.2 (L) 25.0 - 45.0 % [facility] Monocytes 10.2 (H) 0.0 - 10.0 % [facility] Eosinophils 2.4 0.0 - 5.0 % [facility] Basophils 0.3 0.0 - 1.0 % [facility] Immature 0.3Comment: "Immature 0.0 - 1.0 % [place] granulocytes granulocytes" (promyelocytes, [place] myelocytes, metamyelocytes) HOSPITAL Specimen Blood Performing Organization Address City/State/Zipcode Phone Number [facility] DEPARTMENT OF [address] [place] [address] PATHOLOGY AND GENOMIC MEDICINE [address] * Echocardiogram complete w contrast and 3D if needed (11/24/2018 12:40 PM CDT) Specimen Narrative Performed At [facility] Echocardiography Report [address] [place] [address] Pat.Name:Chris MENDEZ.ID:[id number] .Date: 11/24/2018 Refer.MD:EZEKIEL MIRANDA MD Exam Time: 11:49:00 AM Study Type:Routine Echo Height:67inWeight:276lb BSA: 2.32 m2 DOBAge:1945,73Y Sex: MALEBP:140/77 HR:75 bpmSonogrphr: Soraida Momin RDCS Pat. 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 FINDINGS: LV: LV size is normal. Concentric left ventricular remodeling. LVEF is normal. Overall wall motion is normal. Septal diastolicbounce and exaggerated respiratory septal motion seen.Estimated EF is 65-69% RV: RV size is normal. RV systolic function is normal. RV wall motionis normal. LA: LA volume is moderately enlarged. RA: RA size is normal. AO: Aortic root diameter is normal. EDDIE: No pericardial effusion. SVn:Minimal collapse of IVC during inspiration is consistent withelevated RA pressure. AV: Mild calcification of AV leaflets. A trace of aortic regurgitation. MV: No structural MV abnormalities noted. A trace of mitral regurgitation. PV: No structural PV abnormalities noted. A trace of pulmonic regurgitation. TV: No structural TV abnormalities noted. A trace of tricuspid regurgitation Russo: LV respiratory variation is consistent with constrictive pericarditis.RV respiratory variation is consistent with constrictivepericarditis. Normal diastolic function. Other:Insufficient TR jet to estimate PA systolic pressure. MEASUREMENTS: 2D Parasternal Long Rydal Ao An2.3 cmLVPWd1.1 cm LVOT 2.3 cmLA Ds4.6 cm LVIDd3.9 cmIndex1.7 cm/m Ao Rtd 3.2 cm Index1.4 cm/m LVIDs2.5 cm LV Yexw862.3 g(122-174) LV%fs 36.4 % LVM Index 58.7 g/m2 IVSd 1.1 cmRWT0.5 LA Sng Plane LA Area 27.3 cm2(8.8-23.4) LA Vol94.6 ml Index40.8 ml/m LA LngAx 6.4 cm RA Sng Plane RA Area 18.5 cm2(8.3-19.5) RA Vol54.9 ml Index23.7 ml/m RA LngAx 5.2 cm Ascending Aorta Asce Dd2.8 cm DOPPLER LVOT Stroke Vol LVOT 2.2 cmLVOT CO5.3 l/min LVOT TVI21 cmLVOT CI2.3 l/m/m2 LVOT [id number] bpm LVOT SV 79.9 ml Signed 11/24/2018 03:58 PM Ana Cantor M.D. Procedure Note Interface, Radiology Results In - 11/24/2018 3:58 PM CDT Echocardiography Report [address] [place] [address] Pat.Name: ILANA MENDEZ Pat.ID: [id number] .Date: 11/24/2018 Refer.MD: EZEKIEL MIRANDA MD Exam Time: 11:49:00 AM Study Type:Routine Echo Height: 67in Weight: 276lb BSA: 2.32 m2 Age: 2 1945,73Y Sex: MALE BP: 140/77 HR: 75 bpm Sonogrphr: Soraida Momin RDCS Pat. 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 FINDINGS: LV: LV size is normal. Concentric left ventricular remodeling. LV EF is normal. Overall wall motion is normal. Septal diastolic bounce and exaggerated respiratory septal motion seen. Estimated EF is 65-69% RV: RV size is normal. RV systolic function is normal. RV wall motion is normal. LA: LA volume is moderately enlarged. RA: RA size is normal. AO: Aortic root diameter is normal. EDDIE: No pericardial effusion. SVn: Minimal collapse of IVC during inspiration is consistent with elevated RA pressure. AV: Mild calcification of AV leaflets. A trace of aortic regurgitation. MV: No structural MV abnormalities noted. A trace of mitral regurgitation. PV: No structural PV abnormalities noted. A trace of pulmonic regurgitation. TV: No structural TV abnormalities noted. A trace of tricuspid regurgitation Russo: LV respiratory variation is consistent with constrictive pericarditis. RV respiratory variation is consistent with constrictive pericarditis. Normal diastolic function. Other: Insufficient TR jet to estimate PA systolic pressure. MEASUREMENTS: 2D Parasternal Long Rydal Ao An 2.3 cm LVPWd 1.1 cm LVOT 2.3 cm LA Ds 4.6 cm LVIDd 3.9 cm Index 1.7 cm/m Ao Rtd 3.2 cm Index 1.4 cm/m LVIDs 2.5 cm LV Mass 136.3 g (122-174) LV%fs 36.4 % LVM Index 58.7 g/m2 IVSd 1.1 cm RWT 0.5 LA Sng Plane LA Area 27.3 cm2 (8.8-23.4) LA Vol 94.6 ml Index 40.8 ml/m LA LngAx 6.4 cm RA Sng Plane RA Area 18.5 cm2 (8.3-19.5) RA Vol 54.9 ml Index 23.7 ml/m RA LngAx 5.2 cm Ascending Aorta Asce Dd 2.8 cm DOPPLER LVOT Stroke Vol LVOT 2.2 cm LVOT CO 5.3 l/min LVOT TVI 21 cm LVOT CI 2.3 l/m/m2 LVOT Tm 304 msec HR 67 bpm LVOT SV 79.9 ml Signed 11/24/2018 03:58 PM Ana Cantor M.D. Performing Organization Address City/[facility]/[place] [address] * ALT (SGPT) (11/24/2018 4:00 AM CDT) Only the most recent of 2 results within the time period is included. ALT 14 5 - 50 U/L [facility] Specimen Plasma specimen Performing Organization Address [facility] Phone Number [facility] [place] [address] PATHOLOGY AND [facility] MEDICINE [address] * AST (SGOT) (11/24/2018 4:00 AM CDT) Only the most recent of 2 results within the time period is included. AST 24 10 - 50 U/L [facility] Specimen Plasma specimen Performing Organization Address [facility] Phone Number [facility] [place] [address] PATHOLOGY AND [address] * Alkaline phosphatase (11/24/2018 4:00 AM CDT) Only the most recent of 2 results within the time period is included. Alkaline 80 40 - 129 U/L [facility] Specimen Plasma specimen Performing Organization Address [facility] Phone Number [facility] [place] [address] PATHOLOGY AND [facility] MEDICINE [address] * Phosphorus level (11/23/2018 5:41 PM CDT) Only the most recent of 2 results within the time period is included. Phosphorus 3.1 2.4 - 4.5 mg/dL [facility] Specimen Plasma specimen Performing Organization Address [facility] Phone Number [facility] [place] [address] PATHOLOGY AND GENOMIC MEDICINE [address] * Lipid panel (11/23/2018 2:00 PM CDT) Only the most recent of 2 results within the time period is included. Cholesterol 165 <200 mg/dL [facility] Triglycerides 126 <150 mg/dL [facility] HDL cholesterol 42 >40 mg/dL [facility] LDL cholesterol 105 (H)Comment: Result <100 mg/dL [place] obtained by direct LDL [facility] Lipid panel SeeBelow [place] interpretation Comment: [place] Total Cholesterol HOSPITAL (mg/dL) <200 Desirable 200-239Borderline -high >=240High Triglycerides (mg/dL) <150 Normal 150-199Borderline -high 200-499High >=500Very high HDL Cholesterol (mg/dL) <40Low (male) <40Low (female) LDL Cholesterol (mg/dL) <100 Optimal 100-129Near or above optimal 130-159Borderline -high 160-189High >=190Very high Risk Catergories that modify LDL goals. Risk Catergories LDL goal (mg/dL) CHD and CHD risk equivalent<100 (10-year risk >20%) Multiple (2+) risk factors <130 (10-year risk=<20%) 0-1 risk factors <160 (<10-year risk) Defining levels of lipids in metabolic syndrome Triglycerides >=150 mg/dL HDL Cholesterol Men <40 mg/dL Women <40 mg/dL Non-HDL cholesterol is a second target for therapy in persons with high triglycerides (>=200 mg/dL) Specimen Plasma specimen Performing Organization Address City/State/Zipcode Phone Number [facility] DEPARTMENT OF [address] [place] [address] PATHOLOG[address] * Comprehensive metabolic panel (11/23/2018 2:00 PM CDT) Only the most recent of 3 results within the time period is included. Sodium 136 135 - 148 mEq/L [facility] Potassium SEE COMMENT 3.5 - 5.0 mEq/L [place] Comment: [place] Footnote--------- HOSPITAL Unable to perform testing, specimen is HEMOLYZED.Recollect requested for K,AST,ALT,ALP,PHOS (tests). Chloride 102 98 - 112 mEq/L [facility] CO2 18 (L) 24 - 31 mEq/L [facility] Anion gap 16@ANIO (H) 7 - 15 mEq/L [facility] BUN 15 8 - 23 mg/dL [facility] Creatinine 0.78 0.70 - 1.20 mg/dL [facility] Glucose 106 (H) 65 - 99 mg/dL [facility] Calcium 9.1 8.8 - 10.2 mg/dL [facility] Protein 8.3 6.3 - 8.3 g/dL [place] Comment: [facility] 4.6-7.0 g/dL 1 week 4.4-7.6 g/dL 7 months-1year 5.1-7.3 g/dL 1-2 years5.6-7 .5 g/dL >3 years6.0-8 .0 g/dL 18-150 6.3-8.3 g/dL Albumin 3.5 3.5 - 5.0 g/dL [facility] A/G ratio 0.7 0.7 - 3.8 [facility] Alkaline SEE COMMENTComment: 40 - 129 U/L [place] phosphatase Footnote--------- [facility] AST SEE COMMENTComment: 10 - 50 U/L [place] Footnote--------- [facility] ALT SEE COMMENTComment: 5 - 50 U/L [place] Footnote--------- [facility] Total bilirubin 1.4 (H) 0.0 - 1.2 mg/dL [facility] Specimen Plasma specimen Performing Organization Address City/[facility]/Zipcode Phone Number [facility] DEPARTMENT OF [address] [place] [address] PATHOLOGY AND GENOMIC MEDICINE [address] * US Abdomen Complete (05/11/2018 2:03 PM TOEING STOCKINGS) Specimen Narrative Performed At EXAM: US ABDOMEN COMPLETE [facility] CLINICAL DATA:Cirrhosis or Fatty Liver, re cir TECHNIQUE: Sonographic evaluation of the abdomen was performed. COMPARISON: 10/14/2017 IMPRESSION: 1. Coarse hepatic echotexture suggestive of cirrhosis. The liver is normal size. There are no discrete lesions. There is no evidence of intrahepatic biliary ductal dilation The common bile duct has normal caliber. The portal vein is patent with hepatopetal flow. Nonspecific pulsatility of the portal venous flow, possibly due to underlying liver disease or cardiac etiology. 2.Small layering sludge in the gallbladder. There is no evidence of pericholecystic fluid or gallbladder wall thickening. 3.Limited views of the pancreas are unremarkable. 4.Bilateral renal cysts. Largest is on the right measuring up to 5.5 cm. The kidneys are normal size. The kidneys have normal echogenicity. Vascular flow is unremarkable. There is no evidence of hydronephrosis, perinephric fluid, mass or calculus. 5.The spleen has normal echogenicity. The spleen is normal size. 6.No evidence of ascites. 7. Visualized aorta and IVC are unremarkable. [id number] Procedure Note Interface, Radiology Results Incoming - 05/11/2018 5:03 PM TOEING STOCKINGS EXAM: US ABDOMEN COMPLETE CLINICAL DATA: Cirrhosis or Fatty Liver, re cir TECHNIQUE: Sonographic evaluation of the abdomen was performed. COMPARISON: 10/14/2017 IMPRESSION: 1. Coarse hepatic echotexture suggestive of cirrhosis. The liver is normal size. There are no discrete lesions. There is no evidence of intrahepatic biliary ductal dilation The common bile duct has normal caliber. The portal vein is patent with hepatopetal flow. Nonspecific pulsatility of the portal venous flow, possibly due to underlying liver disease or cardiac etiology. 2. Small layering sludge in the gallbladder. There is no evidence of pericholecystic fluid or gallbladder wall thickening. 3. Limited views of the pancreas are unremarkable. 4. Bilateral renal cysts. Largest is on the right measuring up to 5.5 cm. The kidneys are normal size. The kidneys have normal echogenicity. Vascular flow is unremarkable. There is no evidence of hydronephrosis, perinephric fluid, mass or calculus. 5. The spleen has normal echogenicity. The spleen is normal size. 6. No evidence of ascites. 7. Visualized aorta and IVC are unremarkable. [id number] Performing Organization Address City/State/Zipcode Phone Number [facility] [address] [place] [address] * US Abdominal Doppler (05/11/2018 1:57 PM TOEING STOCKINGS) Specimen Narrative Performed At Examination:US ABDOMINAL DOPPLER [facility] Clinical History: cirrhosis Comparison: None. Technique: Abdominal and pelvic Doppler duplex ultrasound was performed with rush scale imaging, color flow imaging, and Doppler duplex with spectral analysis of the waveforms. Findings: The main portal vein measures 1.2 cm in diameter. The velocity measures 19 cm/s. The portal waveform is pulsatile, likely due to underlying cardiac disease and possible cirrhosis. The main, right, and left portal veins are patent with hepatopedal flow. The main, right, and left hepatic veins are patent. Right and left hepatic arteries are patent. The superior mesenteric vein was not well visualized. The inferior vena cava is patent. Splenic artery and vein at the spleen are patent. Splenic vein at midline was not well visualized. Splenic artery at midline is patent. IMPRESSION: Visualized portal and hepatic vessels are patent with normal direction of flow. Procedure Note Interface, Radiology Results Incoming - 05/11/2018 5:17 PM TOEING STOCKINGS Examination: US ABDOMINAL DOPPLER Clinical History: cirrhosis Comparison: None. Technique: Abdominal and pelvic Doppler duplex ultrasound was performed with rush scale imaging, color flow imaging, and Doppler duplex with spectral analysis of the waveforms. Findings: The main portal vein measures 1.2 cm in diameter. The velocity measures 19 cm/s. The portal waveform is pulsatile, likely due to underlying cardiac disease and possible cirrhosis. The main, right, and left portal veins are patent with hepatopedal flow. The main, right, and left hepatic veins are patent. Right and left hepatic arteries are patent. The superior mesenteric vein was not well visualized. The inferior vena cava is patent. Splenic artery and vein at the spleen are patent. Splenic vein at midline was not well visualized. Splenic artery at midline is patent. IMPRESSION: Visualized portal and hepatic vessels are patent with normal direction of flow. Performing Organization Address City/State/Zipcode Phone Number [facility] [address] [place] [address] * Pv carotid duplex (05/11/2018 8:29 AM TOEING STOCKINGS) Specimen Narrative Performed At [facility] Vascular Ultrasound Laboratory Carotid Artery Duplex Report [id number] [facility], [facility] [address], [place] [address] For lead quality control technician purposes, the categorization of the degree of the stenosis of this exam is based on criteria described in the IAC carotid stenosis grading white paper( www.intersocietal.org/Vascular) and Duarte Quiñonez., Magdy Chavez., et al. Carotid artery stenosis: rush-scale and Doppler US diagnosis--Society of Radiologists in Ultrasound Consensus Conference. Radiology. 2003 Nov; 229(2):340-6. Pat.Name:Chris MENDEZ.ID:[id number] .Date: 05/11/2018 Refer.MD:NÉSTOR LOERA MD Exam Time: 7:47:00 AMStudy Type:Carotid DOBAge:1945,72Y Sex: MALE Sonogrphr: Paul Zepeda RN, RVTPat. Stat.:Inpatient Room:[facility] TapeVol: DP, CPT - 4: 65405 Echo Event ID:[id number] Order ID:[id number] Reason for Study:Episode of bilateral arm numbness lasting several minutes and resolving. Procedures:Colorflow, Grayscale/2D, Pulsed wave Doppler Race: SUMMARY: PHYSICAL ASSESSMENT BloodPulsesCarotid Pressure Carotid TemporalBruit Right 131/77 ++0 Left 130/80 ++0 CAROTID ARTERY SCAN RIGHT:There is intimal thickening in the common carotid artery. There is hard and calcified plaque in the bulb extending into the internal and external carotid arteries.No colorflow disturbance is noted. LEFT: There is intimal thickening in the common carotid artery. There is hard and calcified plaque in the bulb extending into the internal and external carotid arteries.No colorflow disturbance is noted. PRELIMINARY FINDINGS 1.<50% stenosis in the bulb, internal and external carotid arteries, bilaterally. PHYSICIAN INTERPRETATION Bilateral carotid duplex examination demonstrated atherosclerotic plaques in the bulbs. Less than 50% stenosis in the bulb and internal carotid artery, bilaterally. Both vertebral arteries are antegrade. Carotid Findings:RightLeft Verteb.Flw AntegradeAntegrade Subclavian TriphasicTriphasic MEASUREMENTS: DOPPLER Right CCA Dist CCA Dist PSV82 cm/sCCA Dist EDV12.9 cm/s Right CCA Mid CCA Mid PSV 86 cm/sCCA Mid EDV 15.5 cm/s Right CCA Prox CCA Prox PSV89.9 cm/sCCA Prox EDV18.1 cm/s Right ECA Prox ECA Prox PSV86 cm/sECA Prox EDV 7.7 cm/s Right ICA Dist ICA Dist PSV53.3 cm/Serge Dist EDV18.1 cm/s Right ICA Mid ICA Mid PSV 61.2 cm/Serge Mid EDV 16.8 cm/s Right ICA Prox ICA Prox PSV63.8 cm/Serge Prox EDV20.7 cm/s Right Vertebral Vertebral PSV 53.3 cm/sVertebral EDV 12.9 cm/s Right Subclavian Subclavian PSV95.5 cm/sSubclavian EDV 0 cm/s Left CCA Dist CCA Dist PSV76.2 cm/sCCA Dist EDV18.1 cm/s Left CCA Mid CCA Mid PSV 85.9 cm/sCCA Mid EDV 19.7 cm/s Left CCA Prox CCA Prox PSV 109 cm/sCCA Prox EDV21.3 cm/s Left ECA Prox ECA Prox PSV92.4 cm/sECA Prox EDV13.2 cm/s Left ICA Dist ICA Dist PSV64.9 cm/Serge Dist EDV19.7 cm/s Left ICA Mid ICA Mid PSV 66.5 cm/Serge Mid EDV 19.7 cm/s Left ICA Prox ICA Prox PSV79.4 cm/Serge Prox EDV19.7 cm/s Left Vertebral Vertebral PSV 40.7 cm/sVertebral EDV 11.6 cm/s Left Subclavian Subclavian PSV 148 cm/sSubclavian EDV 0 cm/s Right ICA/CCA Ratio ICA/CCA PSV0.742 Left ICA/CCA Ratio ICA/CCA PSV0.924 Signed 05/11/2018 05:49 PM Guillermo Carpio MD, RPVI Procedure Note Interface, Radiology Results In - 05/11/2018 5:51 PM [facility] Vascular Ultrasound Laboratory Carotid Artery Duplex Report [id number] [address] For lead quality control technician purposes, the categorization of the degree of the stenosis of this exam is based on criteria described in the IAC carotid stenosis grading white paper( www.intersocietal.org/Vascular) and Duarte Quiñonez., Magdy Chavez., et al. Carotid artery stenosis: rush-scale and Doppler US diagnosis--Society of Radiologists in Ultrasound Consensus Conference. Radiology. 2003 Nov; 229(2):340-6. Pat.Name: ILANA MENDEZ Pat.ID: [id number] .Date: 05/11/2018 Refer.MD: NÉSTOR LOERA MD Exam Time: 7:47:00 AM Study Type:Carotid Age: 1 1945,72Y Sex: MALE Sonogrphr: Paul Zepeda RN, RVT Pat. Stat.:Inpatient Room: [address] Vol: DP, CPT - 4: [address]133 Echo Event ID:[id number] Order ID: [id number] Reason for Study:Episode of bilateral arm numbness lasting several minutes and resolving. Procedures:Colorflow, Grayscale/2D, Pulsed wave Doppler Race: SUMMARY: PHYSICAL ASSESSMENT Blood Pulses Carotid Pressure Carotid Temporal Bruit Right 131/77 + + 0 Left 130/80 + + 0 CAROTID ARTERY SCAN RIGHT: There is intimal thickening in the common carotid artery. There is hard and calcified plaque in the bulb extending into the internal and external carotid arteries. No colorflow disturbance is noted. LEFT: There is intimal thickening in the common carotid artery. There is hard and calcified plaque in the bulb extending into the internal and external carotid arteries. No colorflow disturbance is noted. PRELIMINARY FINDINGS 1. <50% stenosis in the bulb, internal and external carotid arteries, bilaterally. PHYSICIAN INTERPRETATION Bilateral carotid duplex examination demonstrated atherosclerotic plaques in the bulbs. Less than 50% stenosis in the bulb and internal carotid artery, bilaterally. Both vertebral arteries are antegrade. Carotid Findings: Right Left Verteb.Flw Antegrade Antegrade Subclavian Triphasic Triphasic MEASUREMENTS: DOPPLER Right CCA Dist CCA Dist PSV 82 cm/s CCA Dist EDV 12.9 cm/s Right CCA Mid CCA Mid PSV 86 cm/s CCA Mid EDV 15.5 cm/s Right CCA Prox CCA Prox PSV 89.9 cm/s CCA Prox EDV 18.1 cm/s Right ECA Prox ECA Prox PSV 86 cm/s ECA Prox EDV 7.7 cm/s Right ICA Dist ICA Dist PSV 53.3 cm/s ICA Dist EDV 18.1 cm/s Right ICA Mid ICA Mid PSV 61.2 cm/s ICA Mid EDV 16.8 cm/s Right ICA Prox ICA Prox PSV 63.8 cm/s ICA Prox EDV 20.7 cm/s Right Vertebral Vertebral PSV 53.3 cm/s Vertebral EDV 12.9 cm/s Right Subclavian Subclavian PSV 95.5 cm/s Subclavian EDV 0 cm/s Left CCA Dist CCA Dist PSV 76.2 cm/s CCA Dist EDV 18.1 cm/s Left CCA Mid CCA Mid PSV 85.9 cm/s CCA Mid EDV 19.7 cm/s Left CCA Prox CCA Prox PSV 109 cm/s CCA Prox EDV 21.3 cm/s Left ECA Prox ECA Prox PSV 92.4 cm/s ECA Prox EDV 13.2 cm/s Left ICA Dist ICA Dist PSV 64.9 cm/s ICA Dist EDV 19.7 cm/s Left ICA Mid ICA Mid PSV 66.5 cm/s ICA Mid EDV 19.7 cm/s Left ICA Prox ICA Prox PSV 79.4 cm/s ICA Prox EDV 19.7 cm/s Left Vertebral Vertebral PSV 40.7 cm/s Vertebral EDV 11.6 cm/s Left Subclavian Subclavian PSV 148 cm/s Subclavian EDV 0 cm/s Right ICA/CCA Ratio ICA/CCA PSV 0.742 Left ICA/CCA Ratio ICA/CCA PSV 0.924 Signed 05/11/2018 05:49 PM Guillermo Carpio MD, RPVI Performing Organization Address City/State/Zipcode Phone Number [facility] [address] [place] [address] * Troponin (05/10/2018 12:56 PM TOEING STOCKINGS) Only the most recent of 3 results within the time period is included. Troponin <0.30 0.00 - 0.30 ng/mL [facility] Comment: OF PATHOLOGY 0.30 - 1.49 AND GENOMIC ng/mlMay MEDICINE indicate increased risk of acute coronary syndrome. >=1.5 ng/ml Consistent with acute myocardial infarction. The diagnostic value of a single normal or non-diagnostic result is questionable.Serial samples at 2-6 hour intervals are required to rule out acute myocardial injury. Specimen Plasma specimen Performing Organization Address City/State/Zipcode Phone Number [facility] DEPARTMENT OF [address] [place] [address] PATHOLOGY AND GENOMIC MEDICINE * US Gallbladder (05/10/2018 11:05 AM TOEING STOCKINGS) Specimen Narrative Performed At EXAMINATION:US GALLBLADDER [facility] CLINICAL HISTORY:r o cholecystitis COMPARISON:Abdominal ultrasound dated October 14, 2017. FINDINGS: Gallbladder:The gallbladder is without evidence of calculi. Minimal nonspecific sludge seen within the gallbladder lumen. The gallbladder wall is not thickened and there is no pericholecystic fluid. CBD: Measures 6.2 mm, within normal limits. Portal vein: The portal vein demonstrates normal hepatopedal flow. Portal vein measures 1 cm. IMPRESSION: 1. Negative for cholelithiasis or imaging findings to suspect cholecystitis. 2. Minimal nonspecific sludge seen within the gallbladder lumen. [id number] Procedure Note Interface, Radiology Results Incoming - 05/10/2018 12:43 PM TOEING STOCKINGS EXAMINATION: US GALLBLADDER CLINICAL HISTORY: r o cholecystitis COMPARISON: Abdominal ultrasound dated October 14, 2017. FINDINGS: Gallbladder: The gallbladder is without evidence of calculi. Minimal nonspecific sludge seen within the gallbladder lumen. The gallbladder wall is not thickened and there is no pericholecystic fluid. CBD: Measures 6.2 mm , within normal limits. Portal vein: The portal vein demonstrates normal hepatopedal flow. Portal vein measures 1 cm. IMPRESSION: 1. Negative for cholelithiasis or imaging findings to suspect cholecystitis. 2. Minimal nonspecific sludge seen within the gallbladder lumen. [facility]-[id number] Performing Organization Address City/[facility]/Zipcode Phone Number [facility] [address] [place] [address] * Lipase level (05/10/2018 9:07 AM TOEING STOCKINGS) Only the most recent of 2 results within the time period is included. Lipase 22 13 - 60 U/L [facility] DEPARTMENT OF PATHOLOGY AND GENOMIC MEDICINE Specimen Plasma specimen Performing Organization Address City/[facility]/Zipcode Phone Number [facility] DEPARTMENT OF [address] [place] [address] PATHOLOGY AND GENOMIC MEDICINE * Amylase level (05/10/2018 9:07 AM TOEING STOCKINGS) Only the most recent of 2 results within the time period is included. Amylase 51 28 - 100 U/L [facility] DEPARTMENT OF PATHOLOGY AND GENOMIC MEDICINE Specimen Plasma specimen Performing Organization Address City/[facility]ode Phone Number [facility] DEPART[facility] OF [address] [place] [address] PATHOLOGY AND [facility] MEDICINE * CT Abdomen Pelvis W Contrast (05/10/2018 8:28 AM TOEING STOCKINGS) Specimen Narrative Performed At CT ABDOMEN PELVIS W CONTRAST [facility] CLINICAL INDICATION: eval for sbo TECHNIQUE:Multidetector CT imaging of the abdomen and pelvis was performed following the intravenous administration of iodinated contrast with automated exposure control and/or iterative reconstruction techniques to radiation dose. COMPARISON:16 FINDINGS: LUNG BASES:Clear. LIVER:Cirrhotic configuration of the liver is noted as before with areas of nonmass-like in the subcapsular left lobe which appear to be artifactual given overlying metallic leads and beam hardening. No suspicious masslike enhancement. BILIARY:Normal. SPLEEN:Normal. PANCREAS:Normal. ADRENALS:Normal. KIDNEYS:Bilateral simple renal cysts are present, 4.6 cm on the right and 4.7 cm on the left. GI:Large and small bowel are normal in caliber.Moderate diverticulosis of the sigmoid colon is present without findings of superimposed acute diverticulitis. Moderate stool noted throughout the colon.Appendix is visualized and appears normal. VASCULAR:Mild atherosclerosis of the aorta. Portal vasculature is unremarkable. LYMPH NODES:No enlarged lymph nodes in the abdomen or pelvis. PELVIS:No lymphadenopathy or abnormal fluid collection.Urinary bladder is unremarkable. No free fluid. 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 OTHER:Interval resolution of ascites. IMPRESSION: No acute intra-abdominal pathology. No findings for bowel obstruction as questioned. Cirrhotic liver, bilateral renal cysts, diverticulosis, and other findings as described. Thank you for allowing us to participate in the care of your patient. [id number] Procedure Note Interface, Radiology Results Incoming - 05/10/2018 8:[address] ABDOMEN PELVIS W CONTRAST CLINICAL INDICATION: eval for sbo TECHNIQUE: Multidetector CT imaging of the abdomen and pelvis was performed following the intravenous administration of iodinated contrast with automated exposure control and/or iterative reconstruction techniques to radiation dose. COMPARISON: 47 FINDINGS: LUNG BASES: Clear. LIVER: Cirrhotic configuration of the liver is noted as before with areas of nonmass-like in the subcapsular left lobe which appear to be artifactual given overlying metallic leads and beam hardening. No suspicious masslike enhancement. BILIARY: Normal. SPLEEN: Normal. PANCREAS: Normal. ADRENALS: Normal. KIDNEYS: Bilateral simple renal cysts are present, 4.6 cm on the right and 4.7 cm on the left. GI: Large and small bowel are normal in caliber. Moderate diverticulosis of the sigmoid colon is present without findings of superimposed acute diverticulitis. Moderate stool noted throughout the colon. Appendix is visualized and appears normal. VASCULAR: Mild atherosclerosis of the aorta. Portal vasculature is unremarkable. LYMPH NODES: No enlarged lymph nodes in the abdomen or pelvis. PELVIS: No lymphadenopathy or abnormal fluid collection. Urinary bladder is unremarkable. No free fluid. 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 OTHER: Interval resolution of ascites. IMPRESSION: No acute intra-abdominal pathology. No findings for bowel obstruction as questioned. Cirrhotic liver, bilateral renal cysts, diverticulosis, and other findings as described. Thank you for allowing us to participate in the care of your patient. [id number] Performing Organization Address City/State/Zipcode Phone Number [facility] [address] [place] [address] * Ammonia level (05/10/2018 7:06 AM TOEING STOCKINGS) Ammonia 31 16 - 60 umol/L [facility] DEPARTMENT OF PATHOLOGY AND GENOMIC MEDICINE Specimen Blood Performing Organization Address City/State/Zipcode Phone Number [facility] DEPARTMENT OF [address] [place] [address] PATHOLOGY AND GENOMIC MEDICINE * XR Chest 1 Vw Portable (05/10/2018 7:05 AM TOEING STOCKINGS) Specimen Narrative Performed At EXAMINATION: XR CHEST 1 VW PORTABLE [facility] INDICATION: sob COMPARISON: 10/16/2015 IMPRESSION: Diffuse lung haziness secondary to patient body habitus. No discrete airspace disease or pulmonary edema. No large pleural effusion or pneumothorax. Top normal size of the cardiomediastinal silhouette, accentuated by technique. Spondylosis. Degenerative changes involve both shoulder girdles. [facility]-[id number] Procedure Note Interface, Radiology Results Incoming - 05/10/2018 7:10 AM TOEING STOCKINGS EXAMINATION: XR CHEST 1 VW PORTABLE INDICATION: sob COMPARISON: 10/16/2015 IMPRESSION: Diffuse lung haziness secondary to patient body habitus. No discrete airspace disease or pulmonary edema. No large pleural effusion or pneumothorax. Top normal size of the cardiomediastinal silhouette, accentuated by technique. Spondylosis. Degenerative changes involve both shoulder girdles. [id number] Performing Organization Address City/[facility] [place] [address] * Partial thromboplastin time, activated (05/10/2018 5:15 AM TOEING STOCKINGS) PTT 32.3 23.0 - 36.0 sec [facility] Comment: OF PATHOLOGY PTT therapeutic range for AND GENOMIC unfractionated heparin is MEDICINE 61.0-112.0 seconds which corresponds to Anti-Xa 0.3-0.7 U/ml. Specimen Blood Performing Organization Address [facility]/Zipcode Phone Number [facility] [place] [address] PATHOLOGY AND GENOMIC MEDICINE * B natriuretic peptide (05/10/2018 5:15 AM TOEING STOCKINGS) BNP 24 0 - 100 pg/mL [facility] DEPARTMENT OF PATHOLOGY AND GENOMIC MEDICINE Specimen Blood Narrative Performed At [facility] ADDED ON LEXY ZURITA [facility] DEPART[facility] OF PATHOLOGY AND GENOMIC MEDICINE Performing Organization Address [facility] Centercode Phone Number [facility] [place] [address] PATHOLOGY AND GENOMIC MEDICINE * Creatine kinase, total (CPK) (05/10/2018 5:15 AM TOEING STOCKINGS) Creatine kinase 35 (L) 39 - 308 U/L [facility] DE[facility] OF PATHOLOGY AND GENOMIC MEDICINE Specimen Plasma specimen Narrative Performed At [facility] ADDED ON PER PARMINDER [facility] DEPART[facility] OF PATHOLOGY AND GENOMIC MEDICINE Performing Organization Address City/[facility]ode Phone Number [facility] DEPART[facility] OF [address] [place] [address] PATHOLOGY AND GENOMIC MEDICINE * ECG 12 lead (05/10/2018 5:10 AM TOEING STOCKINGS) Ventricular 92 [facility] rate Atrial rate 92 [facility] IN interval 142 [facility] QRSD interval 70 [facility] QT interval 382 [facility] QTC interval 472 [facility] P axis 1 59 [facility] QRS axis 1 2 [facility] T wave axis 53 [facility] EKG impression Normal sinus rhythm-Possible [facility] Left atrial enlargement-Borderline ECG-In automated comparison with ECG of 16-OCT-2015 17:50,-No significant change was found- Specimen Performing Organization Address City/[facility] Phone Number [facility] [place] [address] [place] [address] after 03/08/2018 Insurance Type Payer Benefit Subscriber ID Effective Phone Address Plan / Dates Group O [facility] MEDICARE [facility] DUAL xxxxxxxxx 2016-P COMPLETE resent [facility] Medicaid MEDICAID MEDICAID xxxxxxxxx [id number] resent ([place]) [place] [address] Advance Directives For more information, please contact: [phone] Patient Truck Rental Service Attendant Explanation Type Date Recorded Advance Directives, 10/14/2017 1:17 PM Living Will and Medical Power of Belt Repairer
--- OUTSIDE RECORDS SUMMARY | 2019-03-09 09:30 | XMS REPORT | Continuity of Care Document ---
Author Author [employer] Address Unknown Phone Unavailable Care Team Providers Care Leverman Name Role Phone [employer] Unavailable Unavailable Problems Problem Status Onset Date Classification Date Reported Comments Source Diverticulitis of intestine, part unspecified, without perforation or abscess without bleeding 11/20/2018 11/22/2018 [facility] Unspecified fall, initial encounter 11/20/2018 11/22/2018 [facility] Dorsalgia, unspecified 11/20/2018 11/22/2018 [facility] Abrasion of right forearm, initial encounter 11/20/2018 11/22/2018 [facility] BACK PAIN Active 11/20/2018 [facility] Other cirrhosis of liver 08/05/2018 02/08/2019 [facility] Liver disease, unspecified 06/21/2018 01/02/2019 [facility] F/U Active 06/20/2018 [facility] CIRRHOSIS, HELICOBACTER PYLORI GASTRITIS Active 06/20/2018 [facility] K75.81 - NONALCOHOLIC STEATOHEPATITIS ( Active 06/17/2018 HAZEL Wolf FOLLOW-UP Active 01/11/2018 [facility] CIRRHOSIS, R/O ESOPHAGEAL VARICES Active 04/06/2017 [facility] DDC // 6 MONTH F/U VISIT Active 04/06/2017 [facility] DDC-6 MONTH F/U VISIT Active 10/06/2016 [facility] BILATERAL SHOULDERS Active 06/23/2016 ZAK Emerado BDDC-Z00.00 ENCOUNTER FOR GENERAL MEDICA Active 04/23/2016 [facility] K74.60 - UNSPECIFIED CIRRHOSIS OF LIVER Active 01/22/2016 BOBBID [place] SOB Active 01/22/2016 [facility] R18.8 - OTHER ASCITES K74.60 - UNSPECIFI Active 01/13/2016 OPID Emerado BDDC - F/U Active 01/13/2016 [facility] CIRRHOSIS Active 12/13/2015 [facility] Hypotension Active 11/07/2015 Problem 02/01/2018 [facility] Pneumonia Active 11/07/2015 Problem 02/01/2018 [facility] Sepsis Active 11/07/2015 Problem 02/01/2018 [facility] CHF Active 09/13/2015 Problem 02/01/2018 [facility] Cirrhosis Active 09/13/2015 Problem 02/01/2018 [facility] Dyspnea Active 09/13/2015 Problem 02/01/2018 [facility] Hypoxia Active 09/13/2015 Problem 02/01/2018 [facility] PEROCARDIO Active 09/13/2015 [facility] Ascites (disorder) Active Problem 02/08/2019 [facility], HAZEL [place], [place], HAZEL Wolf, SMR Emer[place] Chronic constrictive pericarditis (disorder) Active Problem 02/08/2019 [facility], [place]EL [place], [place], OPID Luciano, SMR [facility] Cirrhosis of liver (disorder) Active Problem 02/08/2019 [facility], [place], [place], OPID Luciano, S[facility] Hypertensive disorder, systemic arterial (disorder) Resolved Problem 02/08/2019 [facility], [place]EL [place], [place], OPID Luciano, SMR [place] Liver mass (finding) Active Problem 02/08/2019 [facility], [place]ZEL [place], [place], OPID Wolf Morbid obesity (disorder) Active Problem 02/08/2019 [facility], [place]ZEL [place], [place], OPID Luciano, [facility] [place] Obesity (disorder) Active Problem 05/23/2017 [facility], HAZEL [place], OPID Luciano, S[facility] [place] Shoulder pain (finding) Active Problem 02/08/2019 [facility], [place]ZEL [place], [place], OPID Wolf, SMR [place] Nonalcoholic steatohepatitis (disorder) Active Problem 02/08/2019 [facility], HAZEL [place], [place], OPID Wolf Pericarditis (disorder) Resolved Problem 12/17/2017 [facility] History of pericarditis (situation) Active Problem 02/08/2019 [facility], HA[facility]EL [place],[facility], HAZEL Wolf Portal hypertension 02/08/2019 [facility] Other diseases of stomach and duodenum 02/08/2019 [facility] Chronic superficial gastritis without bleeding 02/08/2019 [facility] Other exterminator helper termite (current) drug therapy 02/08/2019 [facility] Personal history of nicotine dependence 02/08/2019 [facility] Essential (primary) hypertension 02/08/2019 [facility] Nonalcoholic steatohepatitis (TODD) 02/08/2019 [facility] Personal history of other infectious and parasitic diseases 02/08/2019 [facility] Obesity, unspecified 02/08/2019 [facility] Body mass index (BMI) 35.0-35.9, adult 02/08/2019 [facility] Unspecified cirrhosis of liver 01/02/2019 [facility] Morbid (severe) obesity due to excess calories 01/02/2019 [facility] Chronic constrictive pericarditis 01/02/2019 [facility] Other specified postprocedural states 01/02/2019 [facility] Helicobacter pylori [H. pylori] as the cause of diseases classified elsewhere 01/02/2019 [facility] Constipation, unspecified 01/02/2019 [facility] Body mass index (BMI) 45.0-49.9, adult 01/02/2019 [facility] Other ascites 01/02/2019 [facility] Nicotine dependence, cigarettes, uncomplicated 01/02/2019 [facility] ENCOUNTER FOR OTHER ADMINISTRATIVE EXAMI Active [facility] ENCNTR FOR GENERAL ADULT MEDICAL EXAM W/ Active [facility] Medications Medication Details Route Status Patient Instructions Ordering Provider Order Date Source aMILoride 5 mg oral tablet 15 mg=3 tab, PO, Daily, # 270 tab, 5 Refill(s), Pharmacy: [email or web address] [id number], Please discontinue all previous RX of amiloride Active 12/15/2018 [facility] tramadol hydrochloride 50 MG Oral Tablet [Ultram] 50 mg=1 tab, PO, Q6H, PRN Pain Score 1-5, X 3 day, # 12 tab, 0 Refill(s) Active 11/21/2018 [facility] Metronidazole 500 MG Oral Tablet [Flagyl] 500 mg=1 tab, PO, Q8H, X 10 day, # 30 tab, 0 Refill(s) Active 11/21/2018 [facility] Ciprofloxacin 500 MG Oral Tablet [Cipro] 500 mg=1 tab, PO, Q12H, X 10 day, # 20 tab, 0 Refill(s) Active 11/21/2018 [facility] baclofen 20 mg oral tablet 20 mg=1 tab, PO, TID, PRN Spasms, # 90 tab, 0 Refill(s) Active 11/21/2018 [facility] Valium 2.5 mg, 0.5 tab, Route: PO, Drug form: TAB, ONCE, Dosing Weight 127, kg, Priority: STAT, Start date: 11/20/18 22:33:00 CDT, Stop date: 11/20/18 22:33:00 CDTNotes: (Same as: Valium) Inactive 11/21/2018 [facility] Valium 2.5 mg, Route: PO, Drug form: TAB, ONCE, Dosing Weight 127, kg, Priority: STAT, Start date: 11/20/18 21:31:00 CDT, Stop date: 11/20/18 21:31:00 CDT Inactive 11/21/2018 [facility] Valium 2 mg, Route: IVP, Drug form: INJ, ONCE, Dosing Weight 127, kg, Priority: STAT, Start date: 11/20/18 21:25:00 CDT, Stop date: 11/20/18 21:25:00 CDT Inactive 11/21/2018 [facility] Motrin 800 mg, Route: PO, Drug form: TAB, ONCE, Dosing Weight 127, kg, Priority: STAT, Start date: 11/20/18 21:24:00 CDT, Stop date: 11/20/18 21:24:00 CDT Inactive 11/21/2018 [facility] Ondansetron 4 mg, 2 mL, Route: IVP, Drug form: INJ, ONCE, Dosing Weight 127, kg, Priority: STAT, Start date: 11/20/18 20:23:00 CDT, Stop date: 11/20/18 20:23:00 CDTNotes: (Same as: Yohanafrbertha) MEDICATION WASTE Product Size: 4 mg Product Wasted: ___ mg Inactive 11/21/2018 [facility] Morphine 4 mg, 1 mL, Route: IVP, Drug form: SOLN, ONCE, Dosing Weight 127, kg, Priority: STAT, Start date: 11/20/18 20:23:00 CDT, Stop date: 11/20/18 20:23:00 CDTNotes: (Same as:MORPhine Sulfate) Inactive 11/21/2018 [facility] Ondansetron 4 mg, 2 mL, Route: IVP, Drug form: INJ, ONCE, Dosing Weight 127, kg, Priority: STAT, Start date: 11/20/18 17:56:00 CDT, Stop date: 11/20/18 17:56:00 CDTNotes: (Same as: Zofran) MEDICATION WASTE Product Size: 4 mg Product Wasted: ___ mg Inactive 11/20/2018 [facility] Morphine 4 mg, 1 mL, Route: IVP, Drug form: SOLN, ONCE, Dosing Weight 127, kg, Priority: STAT, Start date: 11/20/18 17:56:00 CDT, Stop date: 11/20/18 17:56:00 CDTNotes: (Same as:MORPhine Sulfate) Inactive 11/20/2018 [facility] bismuth subcitrate 140 MG / Metronidazole 125 MG / tetracycline hydrochloride 125 MG Oral Capsule [Pylera] 3 cap, PO, QID-After Meals, Take after meals and at bedtime, X 10 day, # 120 cap, 0 Refill(s), other No Longer Active 08/01/2018 [facility] omeprazole 20 mg oral delayed release capsule 20 mg=1 cap, PO, BID, # 28 cap, 0 Refill(s), Pharmacy: [facility] [id number] No Longer Active 07/29/2018 [facility] amoxicillin 500 mg oral tablet 1,000 mg=2 tab, PO, BID, X 14 day, # 56 tab, 0 Refill(s), Pharmacy: [facility] [id number] No Longer Active 07/29/2018 [facility] clarithromycin 500 mg oral tablet 500 mg=1 tab, PO, BID, X 14 day, # 28 tab, 0 Refill(s), Pharmacy: [facility] [id number] No Longer Active 07/29/2018 [facility] bismuth subcitrate 140 MG / Metronidazole 125 MG / tetracycline hydrochloride 125 MG Oral Capsule [Pylera] 3 cap, PO, QID-After Meals, Take after meals and at bedtime, X 14 day, # 168 cap, 0 Refill(s), Pharmacy: [facility] [id number] No Longer Active 07/27/2018 [facility] Triamcinolone Acetonide 0.001 MG/MG Topical Ointment See Instructions, TOP TID, 0 Refill(s) Active 07/21/2018 [facility] Docusate 100 mg, PO, BID, 0 Refill(s) Active 07/21/2018 [facility] Osteo Bi-Flex 0 Refill(s) No Longer Active 06/14/2018 [facility] Centrum Silver oral tablet 1 tab, PO, Daily, # 30 tab, 0 Refill(s) Active 06/14/2018 [facility] Hydrocortisone 25 MG/ML Topical Cream [Proctozone HC] 1 appl, TOP, Daily, PRN Hemorrhoids, X 30 day, # 30 gm, 0 Refill(s), Pharmacy: [facility] [place] [id number] Active 12/14/2017 [facility] omeprazole 40 mg oral delayed release capsule 40 mg=1 cap, PO, Daily, # 30 cap, 1 Refill(s), given to patient No Longer Active 05/20/2017 [facility] Furosemide 20 MG Oral Tablet [Lasix] 20 mg=1 tab, PO, Daily, # 30 tab, 2 Refill(s), Pharmacy: [facility] [place] [id number] Active 07/24/2016 [facility] aMILoride 5 mg oral tablet 5 mg=1 tab, PO, Daily, # 30 tab, 3 Refill(s), Pharmacy: [facility] [id number] Active 07/14/2016 [facility] Furosemide 20 MG Oral Tablet [Lasix] 20 mg=1 tab, PO, Daily, # 30 tab, 3 Refill(s), Pharmacy: [facility] [id number] Active 03/26/2016 [facility] Furosemide 20 MG Oral Tablet [Lasix] 20 mg=1 tab, PO, Daily, 0 Refill(s) No Longer Active 03/24/2016 [facility] aMILoride 5 mg oral tablet 5 mg=1 tab, PO, Daily, # 30 tab, 3 Refill(s), Pharmacy: [facility] [id number] Active 03/24/2016 [facility] Vitamin D3 0 Refill(s) Active 03/24/2016 [facility] Hydrocortisone 25 MG/ML Topical Cream [Anusol HC] 1 appl, IL, BID, X 14 day, # 30 gm, 1 Refill(s), Pharmacy: [facility] [id number] No Longer Active 01/23/2016 [facility] Docusate Sodium 100 MG Oral Capsule [Colace] 200 mg=2 cap, PO, Daily, 0 Refill(s) Active 01/13/2016 [facility] midodrine 5 mg oral tablet 5 mg=1 tab, PO, TID, # 90 tab, 3 Refill(s) Active 01/13/2016 [facility] Aspirin 325 Mg Tablet, 325 Mg Oral Active 11/10/2015 [facility] Colchicine (Colcrys) 0.6 Mg Tablet, 0.6 Mg Oral Daily Active 11/10/2015 [facility] Furosemide (Lasix) 40 Mg Tablet, 40 Mg Oral Daily Active 11/10/2015 [facility] Losartan Potassium 100 Mg Tablet, 50 Mg Oral Daily Active 11/10/2015 [facility] Potassium Chloride 20 Meq Tab.er.prt, 2 Tab Oral Daily as needed for High Blood Pressure Active 11/10/2015 [facility] Prednisone 20 Mg Tab, 20 Mg Oral Twice A Day Active 11/10/2015 [facility] Spironolactone 25 Mg Tablet, 100 Mg Oral Twice A Day Active 11/10/2015 [facility] Losartan Potassium 25 Mg Tablet, Active 11/07/2015 [facility] Spironolactone 25 Mg Tablet, 25 Mg Oral Twice A Day Active 11/07/2015 [facility] Furosemide 40 MG Oral Tablet [Lasix] 40 mg, 1 tab, Route: PO, Drug form: TAB, Daily, Dosing Weight 130, kg, Start date: 09/16/15 9:00:00, Duration: 30 day, Stop date: 10/15/15 9:00:00Notes: (Same as: Lasix) May cause GI upset. Give with food or milk. Inactive 09/16/2015 [facility] Miralax 17 gm, 1 pkt, Route: PO, Drug form: PWDR, Daily, Dosing Weight 130, kg, Start date: 09/16/15 9:00:00, Duration: 30 day, Stop date: 10/15/15 9:00:00Notes: Dissolve in 8 oz of water or juice. (Same as: Miralax) Inactive 09/16/2015 [facility] Docusate 100 mg, 1 cap, Route: PO, Drug form: CAP, BID, Dosing Weight 130, kg, Start date: 09/15/15 9:00:00, Duration: 30 day, Stop date: 10/14/15 17:00:00Notes: (Same as: Colace) (Do Not Crush) No Longer Active 09/15/2015 [facility] Hydrocortisone 10 MG/ML Rectal Cream 1 appl, Route: IL, BID, Start date: 09/15/15 9:00:00, Duration: 30 day, Stop date: 10/14/15 17:00:00 No Longer Active 09/15/2015 [facility] potassium chloride 20 mEq, 1 tab, Route: PO, Drug form: ERTAB, Daily, Dosing Weight 130, kg, Start date: 09/15/15 9:00:00, Duration: 30 day, Stop date: 10/14/15 9:00:00Notes: (Same as: K-Dur 20) "Do Not Crush" With food and full glass of water No Longer Active 09/15/2015 [facility] potassium chloride 40 mEq, 2 tab, Route: PO, Drug form: ERTAB, ONCE, Dosing Weight 130, kg, Start date: 09/15/15 4:53:00, Stop date: 09/15/15 4:53:00Notes: (Same as: K-Dur 20) "Do Not Crush" With food and full glass of water Inactive 09/15/2015 [facility] Calcium Gluconate 2,000 mg, 20 mL, Route: IVPB, ONCE, Dosing Weight 130, kg, Start date: 09/15/15 4:53:00, Stop date: 09/15/15 4:53:00Notes: WASTE: F/P - Sink; E - Municipal Trash Bin Inactive 09/15/2015 [facility] hydrocortisone 2.5% rectal cream with applicator 1 appl, Route: IL, BID, Drug form: CRM/A, Start date: 09/14/15 21:30:00, Duration: 30 day, Stop date: 10/14/15 17:00:00Notes: (Same as: Anusol-HC, Proctosol-HC) No Longer Active 09/15/2015 [facility] Losartan 25 mg, 1 tab, Route: PO, Drug form: TAB, Bedtime, Dosing Weight 130, kg, Start date: 09/14/15 21:00:00, Duration: 30 day, Stop date: 10/13/15 21:00:00Notes: (Same as: Cozaar) No Longer Active 09/15/2015 [facility] senna 8.6 mg oral tablet 8.6 mg, 1 tab, Route: PO, Drug Form: TAB, Dosing Weight 130, kg, Bedtime, Start date: 09/14/15 21:00:00, Duration: 30 day, Stop date: 10/13/15 21:00:00Notes: (Same as: Senokot) No Longer Active 09/15/2015 [facility] Aldactone 25 mg, 1 tab, Route: PO, Drug form: TAB, BID, Dosing Weight 130, kg, Start date: 09/14/15 17:00:00, Duration: 30 day, Stop date: 10/14/15 9:00:00Notes: (Same As: Aldactone) No Longer Active 09/14/2015 [facility] Lasix 40 mg, 4 mL, Route: IVP, Drug form: INJ, Q12H, Dosing Weight 130, kg, Start date: 09/14/15 13:50:00, Duration: 30 day, Stop date: 10/14/15 9:00:00Notes: (Same as: Lasix) MEDICATION WASTE Product Size: 40 mg Product Wasted: ___ mg No Longer Active 09/14/2015 [facility] heparin 5,000 unit, 1 mL, Route: SUB-Q, Drug form: INJ, Q8H, Dosing Weight 130, kg, Start date: 09/14/15 0:00:00, Duration: 30 day, Stop date: 10/13/15 16:00:00Notes: porcine heparin No Longer Active 09/14/2015 [facility] atorvastatin 40 mg, 1 tab, Route: PO, Drug form: TAB, Bedtime, Dosing Weight 130, kg, Start date: 09/13/15 21:00:00, Duration: 30 day, Stop date: 10/12/15 21:00:00Notes: (Same as: Lipitor) No Longer Active 09/14/2015 [facility] Nitroglycerin 0.4 mg, 1 tab, Route: SL, Drug form: TAB, Q5Min, Dosing Weight 130, kg, PRN Chest Pain, Start date: 09/13/15 18:12:00, Duration: 3 doses or times, Stop date: Limited # of timesNotes: (Same as:Nitroqu ick, Nitrostat) "Do Not Crush" Sublingual tablet No Longer Active 09/14/2015 [facility] Spironolactone 25 MG Oral Tablet [Aldactone] 25 mg=1 tab, PO, BID, 0 Refill(s) Active 09/13/2015 [facility] losartan 50 mg oral tablet 50 mg=1 tab, PO, Bedtime, 0 Refill(s) Active 09/13/2015 [facility] Furosemide 40 MG Oral Tablet [Lasix] 40 mg=1 tab, PO, Daily, 0 Refill(s) Active 09/13/2015 [facility] Amiloride Hcl 5 Mg Tablet Daily Active [facility] Cholecalciferol (Vitamin D3) (Vitamin D) 1,000 Unit Tablet 2DAYS/Wk Active [facility] Docusate Sodium 100 Mg Capsule Daily Active [facility] Furosemide (Lasix) 20 Mg Tablet Daily Active [facility] Methylprednisolone (Medrol) 4 Mg Tablet Active [facility] Spironolactone (Aldactone) 25 Mg Tablet Daily Active [facility] Allergies, Adverse Reactions, Alerts Substance Category Reaction Severity Reaction type Status Date Reported Comments Source spironolactone Assertion Drug allergy Active [facility] omeprazole Assertion pantoprazole Propensity to adverse reactions to drug Active [facility] pantoprazole Assertion Propensity to adverse reactions to drug Active [facility] Immunizations No Data Provided for This Section Results Order Name Results Value Reference Range Date Interpretation Comments Source IMMUNOLOGY H pylori Breath Test Negative (12/15/18 1:16 PM) 12/15/2018 [facility] CARDIAC ENZYMES Troponin-I <0.02 0.00 - 0.40 11/20/2018 [facility] ELECTROLYTES AGAP 8.8 10.0 - 20.0 11/20/2018 [facility] ELECTROLYTES eGFR 73 11/20/2018 Result Comment: The [...] should be multiplied by the estimated BMI. [facility] ELECTROLYTES Glucose Lvl 111 70 - 99 11/20/2018 [facility] ELECTROLYTES BUN 16 7 - 22 11/20/2018 [facility] ELECTROLYTES Sodium Lvl 139 135 - 145 11/20/2018 [facility] ELECTROLYTES Creatinine Lvl 1.01 0.50 - 1.40 11/20/2018 [facility] ELECTROLYTES Potassium Lvl 3.8 3.5 - 5.1 11/20/2018 [facility] ELECTROLYTES Calcium Lvl 8.1 8.5 - 10.5 11/20/2018 [facility] ELECTROLYTES Chloride Lvl 107 95 - 109 11/20/2018 [facility] ELECTROLYTES CO2 27 24 - 32 11/20/2018 [facility] HEMATOLOGY MCV 95.7 80.0 - 94.0 11/20/2018 [facility] HEMATOLOGY MCH 31.2 27.0 - 31.0 11/20/2018 [facility] HEMATOLOGY Hct 46.1 42.0 - 54.0 11/20/2018 [facility] HEMATOLOGY Hgb 15.0 14.0 - 18.0 11/20/2018 [facility] HEMATOLOGY Platelet 142 133 - 450 11/20/2018 [facility] HEMATOLOGY MPV 9.8 7.4 - 10.4 11/20/2018 [facility] HEMATOLOGY MCHC 32.6 32.0 - 36.0 11/20/2018 [facility] HEMATOLOGY RBC 4.81 4.70 - 6.10 11/20/2018 [facility] HEMATOLOGY WBC 6.8 3.7 - 10.4 11/20/2018 [facility] HEMATOLOGY RDW 15.1 11.5 - 14.5 11/20/2018 [facility] HEMATOLOGY Lymphocytes # 1.5 1.0 - 5.5 11/20/2018 [facility] HEMATOLOGY Neutrophils # 4.5 1.5 - 8.1 11/20/2018 [facility] HEMATOLOGY Eosinophils 1.9 0.0 - 4.0 11/20/2018 [facility] HEMATOLOGY Basophils 0.5 0.0 - 1.0 11/20/2018 [facility] HEMATOLOGY Monocytes 9.7 2.0 - 12.0 11/20/2018 [facility] HEMATOLOGY Segs 66.0 45.0 - 75.0 11/20/2018 [facility] HEMATOLOGY Lymphocytes 21.9 20.0 - 40.0 11/20/2018 [facility] HEMATOLOGY Monocytes # 0.7 0.0 - 0.8 11/20/2018 [facility] HEMATOLOGY Eosinophils # 0.1 0.0 - 0.5 11/20/2018 [facility] CHEM PANEL Globulin 4.2 2.7 - 4.2 06/14/2018 [facility] CHEM PANEL A/G Ratio 0.9 0.7 - 1.6 06/14/2018 [facility] CHEM PANEL Bili Total 1.4 0.2 - 1.3 06/14/2018 [facility] CHEM PANEL Bili Indirect 1.0 0.0 - 1.0 06/14/2018 [facility] CHEM PANEL Bili Direct 0.4 0.0 - 0.3 06/14/2018 [facility] CHEM PANEL Alk Phos 83 39 - 136 06/14/2018 [facility] CHEM PANEL Total Protein 7.9 6.4 - 8.4 06/14/2018 [facility] CHEM PANEL AST 18 0 - 37 06/14/2018 [facility] CHEM PANEL ALT 21 0 - 65 06/14/2018 [facility] CHEM PANEL Albumin Lvl 3.7 3.5 - 5.0 06/14/2018 [facility] ELECTROLYTES AGAP 12.2 10.0 - 20.0 06/14/2018 [facility] ELECTROLYTES eGFR 80 06/14/2018 Result Comment: The [...] the estimated BMI. [facility] ELECTROLYTES BUN 20 7 - 22 06/14/2018 [facility] ELECTROLYTES Glucose Lvl 100 70 - 99 06/14/2018 [facility] ELECTROLYTES CO2 30 24 - 32 06/14/2018 [facility] ELECTROLYTES Creatinine Lvl 0.94 0.50 - 1.40 06/14/2018 [facility] ELECTROLYTES Potassium Lvl 4.2 3.5 - 5.1 06/14/2018 [facility] [facility] ELECTROLYTES Chloride Lvl 103 95 - 109 06/14/2018 [facility] ELECTROLYTES Sodium Lvl 141 135 - 145 06/14/2018 [facility] ELECTROLYTES Calcium Lvl 8.7 8.5 - 10.5 06/14/2018 [facility] HEMATOLOGY Lymphocytes # 1.8 1.0 - 5.5 06/14/2018 [facility] HEMATOLOGY Neutrophils # 7.7 1.5 - 8.1 06/14/2018 [facility] HEMATOLOGY Eosinophils 0.9 0.0 - 4.0 06/14/2018 [facility] HEMATOLOGY Eosinophils # 0.1 0.0 - 0.5 06/14/2018 [facility] HEMATOLOGY Monocytes # 0.9 0.0 - 0.8 06/14/2018 [facility] HEMATOLOGY Monocytes 8.3 2.0 - 12.0 06/14/2018 [facility] HEMATOLOGY Segs 73.3 45.0 - 75.0 06/14/2018 [facility] HEMATOLOGY Lymphocytes 17.1 20.0 - 40.0 06/14/2018 [facility] HEMATOLOGY Basophils 0.4 0.0 - 1.0 06/14/2018 [facility] HEMATOLOGY INR 1.18 0.85 - 1.17 06/14/2018 [facility] HEMATOLOGY PT 14.8 12.0 - 14.7 06/14/2018 [facility] HEMATOLOGY RDW 16.1 11.5 - 14.5 06/14/2018 [facility] HEMATOLOGY MCHC 33.5 32.0 - 36.0 06/14/2018 [facility] HEMATOLOGY RBC 4.66 4.70 - 6.10 06/14/2018 [facility] HEMATOLOGY WBC 10.4 3.7 - 10.4 06/14/2018 [facility] HEMATOLOGY Hct 44.3 42.0 - 54.0 06/14/2018 [facility] HEMATOLOGY MCV 94.9 80.0 - 94.0 06/14/2018 [facility] HEMATOLOGY Hgb 14.8 14.0 - 18.0 06/14/2018 [facility] HEMATOLOGY MCH 31.8 27.0 - 31.0 06/14/2018 [facility] HEMATOLOGY MPV 10.9 7.4 - 10.4 06/14/2018 [facility] HEMATOLOGY Platelet 159 133 - 450 06/14/2018 [facility] TUMOR MARKERS AFP 4.0 0.0 - 11.0 06/14/2018 [facility] CHEM PANEL eGFR 91 05/06/2017 Result Comment: [...] the estimated BMI. [facility] CHEM PANEL Bili Total 1.4 0.2 - 1.3 05/06/2017 [facility] CHEM PANEL Glucose Lvl 101 70 - 99 05/06/2017 [facility] CHEM PANEL BUN 18 7 - 22 05/06/2017 [facility] CHEM PANEL Potassium Lvl 4.0 3.5 - 5.1 05/06/2017 [facility] CHEM PANEL Albumin Lvl 3.6 3.5 - 5.0 05/06/2017 [facility] CHEM PANEL AST 16 0 - 37 05/06/2017 [facility] CHEM PANEL ALT 16 0 - 65 05/06/2017 [facility] CHEM PANEL Alk Phos 89 39 - 136 05/06/2017 [facility] CHEM PANEL Sodium Lvl 142 135 - 145 05/06/2017 [facility] CHEM PANEL Creatinine Lvl 0.77 0.50 - 1.40 05/06/2017 [facility] CHEM PANEL Calcium Lvl 8.9 8.5 - 10.5 05/06/2017 [facility] CHEM PANEL CO2 25 24 - 32 05/06/2017 [facility] CHEM PANEL Total Protein 7.6 6.4 - 8.4 05/06/2017 [facility] CHEM PANEL Chloride Lvl 107 95 - 109 05/06/2017 [facility] CHEM PANEL A/G Ratio 0.9 0.7 - 1.6 05/06/2017 [facility] CHEM PANEL AGAP 14.0 10.0 - 20.0 05/06/2017 [facility] CHEM PANEL Globulin 4.0 2.7 - 4.2 05/06/2017 [facility] CHEM PANEL B/C Ratio 23 6 - 25 05/06/2017 [facility] HEMATOLOGY MPV 10.4 7.4 - 10.4 05/06/2017 [facility] HEMATOLOGY WBC 6.3 3.7 - 10.4 05/06/2017 [facility] HEMATOLOGY Platelet 130 133 - 450 05/06/2017 [facility] HEMATOLOGY RDW 17.0 11.5 - 14.5 05/06/2017 [facility] HEMATOLOGY MCHC 33.0 32.0 - 36.0 05/06/2017 [facility] HEMATOLOGY Hgb 14.5 14.0 - 18.0 05/06/2017 [facility] HEMATOLOGY Hct 43.9 42.0 - 54.0 05/06/2017 [facility] HEMATOLOGY RBC 4.78 4.70 - 6.10 05/06/2017 [facility] HEMATOLOGY MCV 91.9 80.0 - 94.0 05/06/2017 [facility] HEMATOLOGY MCH 30.3 27.0 - 31.0 05/06/2017 [facility] HEMATOLOGY PT 15.1 12.0 - 14.7 05/06/2017 [facility] HEMATOLOGY INR 1.18 0.85 - 1.17 05/06/2017 [facility] HEMATOLOGY PTT 33.4 22.9 - 35.8 05/06/2017 [facility] HEMATOLOGY TEG Interp Thrombelastograph results are within reference ranges. These indicate adequate hemostasis. Note that TEG does not show effect of NSAIDs or P2Y12 inhibitors. CPT:52152 05/06/2017 [facility] HEMATOLOGY TEG Data See Note (05/06/17 4:00 PM) 05/06/2017 [facility] HEMATOLOGY Coag Index 1.2 -3.0-3.0 - 3.0 05/06/2017 [facility] HEMATOLOGY Ly30 0.5 0.0 - 7.5 05/06/2017 [facility] HEMATOLOGY Max Amp 68.0 50.0 - 70.0 05/06/2017 [facility] HEMATOLOGY K-time 1.6 1.0 - 3.0 05/06/2017 [facility] HEMATOLOGY Angle 66.9 53.0 - 72.0 05/06/2017 [facility] HEMATOLOGY G-value 10.6 4.5 - 11.0 05/06/2017 [facility] HEMATOLOGY R-time 5.8 5.0 - 10.0 05/06/2017 [facility] HEMATOLOGY Lymphocytes 29.2 20.0 - 40.0 05/06/2017 [facility] HEMATOLOGY Segs 57.8 45.0 - 75.0 05/06/2017 [facility] HEMATOLOGY Basophils 0.3 0.0 - 1.0 05/06/2017 [facility] HEMATOLOGY Segs-Bands # 3.7 1.5 - 8.1 05/06/2017 [facility] HEMATOLOGY Monocytes 9.6 2.0 - 12.0 05/06/2017 [facility] HEMATOLOGY Eosinophils 3.1 0.0 - 4.0 05/06/2017 [facility] HEMATOLOGY Eosinophils # 0.2 0.0 - 0.5 05/06/2017 [facility] HEMATOLOGY Monocytes # 0.6 0.0 - 0.8 05/06/2017 [facility] HEMATOLOGY Lymphocytes # 1.8 1.0 - 5.5 05/06/2017 [facility] SPECIAL CHEMISTRY Hgb A1C 6.8 <=5.6 % 05/06/2017 [facility] CHEM PANEL Calcium Lvl 9.1 8.5 - 10.5 09/16/2015 [facility] CHEM PANEL Creatinine Lvl 1.01 0.50 - 1.40 09/16/2015 [facility] CHEM PANEL Chloride Lvl 99 95 - 109 09/16/2015 [facility] CHEM PANEL Sodium Lvl 137 135 - 145 09/16/2015 [facility] CHEM PANEL Potassium Lvl 4.1 3.5 - 5.1 09/16/2015 [facility] CHEM PANEL BUN 22 7 - 22 09/16/2015 [facility] CHEM PANEL Glucose Lvl 109 70 - 99 09/16/2015 [facility] CHEM PANEL Phosphorus 4.1 2.5 - 4.5 09/16/2015 [facility] CHEM PANEL Albumin Lvl 3.2 3.5 - 5.0 09/16/2015 [facility] CHEM PANEL CO2 31 24 - 32 09/16/2015 [facility] CHEM PANEL AGAP 11.1 10.0 - 20.0 09/16/2015 [facility] CHEM PANEL eGFR 74 09/16/2015 Result Comment: [...] the estimated BMI. [facility] IMMUNOLOGY Hep A IgM Negative *NA* (09/15/15 5:36 PM) Negative 09/15/2015 [facility] IMMUNOLOGY Hep Be Ag NONREACTIVE 09/15/2015 Result Comment: REFERENCE RANGES: NONREACTIVE
Test Performed at:
[facility]
[id number] [address]
[place] [id number] Elva Barajas MD [facility] IMMUNOLOGY Hep B Core IgM Negative *NA* (09/15/15 10:30 AM) Negative 09/15/2015 [facility] MOLECULAR DIAGNOSTIC Hep B PCR Qnt Not Detected (09/15/15 10:30 AM) 09/15/2015 [facility] MOLECULAR DIAGNOSTIC HBV DNA Log10 <1.3 09/15/2015 [facility] CHEM PANEL Magnesium Lvl 1.9 1.8 - 2.4 09/15/2015 [facility] CHEM PANEL Phosphorus 2.9 2.5 - 4.5 09/15/2015 [facility] CHEM PANEL eGFR 99 09/15/2015 Result Comment: [...] the estimated BMI. [facility] CHEM PANEL AGAP 10.3 10.0 - 20.0 09/15/2015 [facility] CHEM PANEL CO2 29 24 - 32 09/15/2015 [facility] CHEM PANEL Chloride Lvl 108 95 - 109 09/15/2015 [facility] CHEM PANEL Potassium Lvl 3.3 3.5 - 5.1 09/15/2015 [facility] CHEM PANEL Calcium Lvl 6.9 8.5 - 10.5 09/15/2015 Result Comment: Critical Result(s) called to mary white at 09/15/2015 04:33 by ko. Read back OK. [facility] CHEM PANEL Glucose Lvl 99 70 - 99 09/15/2015 [facility] CHEM PANEL Sodium Lvl 144 135 - 145 09/15/2015 [facility] CHEM PANEL Creatinine Lvl 0.64 0.50 - 1.40 09/15/2015 [facility] CHEM PANEL BUN 17 7 - 22 09/15/2015 [facility] IMMUNOLOGY ASTRID Negative (09/15/15 1:35 AM) Negative 09/15/2015 [facility] IMMUNOLOGY Tissue Transglutaminase (tTg) IgG <0.8 <=14.9 unit/mL 09/15/2015 [facility] IMMUNOLOGY Gliadin (Deamidated Peptide)IgA Ab 1.9 <=14.9 unit/mL 09/15/2015 [facility] IMMUNOLOGY Gliadin (Deamidated Peptide)IgG Ab <0.4 <=14.9 unit/mL 09/15/2015 [facility] IMMUNOLOGY Tissue Transglutaminase (tTG) IgA <0.5 <=14.9 unit/mL 09/15/2015 [facility] IMMUNOLOGY IgA Lvl 285.0 68.0 - 378.0 09/15/2015 [facility] CARDIAC ENZYMES BNP 34 <=100 pg/mL 09/14/2015 [facility] HEMATOLOGY Monocytes 7.0 2.0 - 12.0 09/14/2015 [facility] HEMATOLOGY Lymphocytes 21.8 20.0 - 40.0 09/14/2015 [facility] HEMATOLOGY Lymphocytes # 1.8 1.0 - 5.5 09/14/2015 [facility] HEMATOLOGY Monocytes # 0.6 0.0 - 0.8 09/14/2015 [facility] HEMATOLOGY Basophils # 0.1 0.0 - 0.2 09/14/2015 [facility] HEMATOLOGY Eosinophils # 0.1 0.0 - 0.5 09/14/2015 [facility] HEMATOLOGY Eosinophils 1.1 0.0 - 4.0 09/14/2015 [facility] HEMATOLOGY Basophils 0.9 0.0 - 1.0 09/14/2015 [facility] HEMATOLOGY Segs-Bands # 5.7 1.5 - 8.1 09/14/2015 [facility] HEMATOLOGY Segs 69.2 45.0 - 75.0 09/14/2015 [facility] HEMATOLOGY MPV 9.3 7.4 - 10.4 09/14/2015 [facility] HEMATOLOGY MCV 96.5 80.0 - 94.0 09/14/2015 [facility] HEMATOLOGY Hct 38.9 42.0 - 54.0 09/14/2015 [facility] HEMATOLOGY WBC 8.2 3.7 - 10.4 09/14/2015 [facility] HEMATOLOGY Hgb 12.7 14.0 - 18.0 09/14/2015 [facility] HEMATOLOGY RDW 14.3 11.5 - 14.5 09/14/2015 [facility] HEMATOLOGY RBC 4.03 4.70 - 6.10 09/14/2015 [facility] HEMATOLOGY MCH 31.6 27.0 - 31.0 09/14/2015 [facility] HEMATOLOGY Platelet 221 133 - 450 09/14/2015 [facility] HEMATOLOGY MCHC 32.7 32.0 - 36.0 09/14/2015 [facility] HEMATOLOGY PT 16.3 12.0 - 14.7 09/14/2015 [facility] HEMATOLOGY INR 1.28 0.85 - 1.17 09/14/2015 [facility] HEMATOLOGY PTT 33.0 22.9 - 35.8 09/14/2015 [facility] CARDIAC ENZYMES Troponin-I <0.02 0.00 - 0.40 09/14/2015 [facility] CARDIAC ENZYMES Troponin-T <0.010 0.000 - 0.100 09/14/2015 [facility] CARDIAC ENZYMES Total CK 259 12 - 191 09/14/2015 [facility] CARDIAC ENZYMES CK MB Index 0.6 0.0 - 2.5 09/14/2015 [facility] CARDIAC ENZYMES CK MB 1.5 0.5 - 3.6 09/14/2015 [facility] DRUG SCREEN UDS Note See Note *NA* (09/14/15 12:54 AM) 09/14/2015 [facility] DRUG SCREEN U Propoxyph Scr Negative *NA* (09/14/15 12:54 AM) Negative 09/14/2015 [facility] DRUG SCREEN U Phencyc Scr Negative *NA* (09/14/15 12:54 AM) Negative 09/14/2015 [facility] DRUG SCREEN U Methadone Scr Negative *NA* (09/14/15 12:54 AM) Negative 09/14/2015 [facility] DRUG SCREEN U Amph Scr Negative *NA* (09/14/15 12:54 AM) Negative 09/14/2015 [facility] DRUG SCREEN U Benzodia Scr Negative *NA* (09/14/15 12:54 AM) Negative 09/14/2015 [facility] DRUG SCREEN U Cannab Scr Negative *NA* (09/14/15 12:54 AM) Negative 09/14/2015 [facility] DRUG SCREEN U Janina Scr Negative *NA* (09/14/15 12:54 AM) Negative 09/14/2015 [facility] DRUG SCREEN U Cocaine Scr Negative *NA* (09/14/15 12:54 AM) Negative 09/14/2015 [facility] DRUG SCREEN U Opiate Scr Negative *NA* (09/14/15 12:54 AM) Negative 09/14/2015 [facility] URINE AND STOOL UA Nitrite Negative (09/14/15 12:54 AM) Negative 09/14/2015 [facility] URINE AND STOOL UA WBC 4 0 - 5 09/14/2015 [facility] URINE AND STOOL UA Leuk Est Trace *ABN* (09/14/15 12:54 AM) Negative 09/14/2015 [facility] URINE AND STOOL UA RBC <1 0 - 2 09/14/2015 [facility] URINE AND STOOL UA Blood Negative (09/14/15 12:54 AM) Negative 09/14/2015 [facility] URINE AND STOOL UA Bili Negative *NA* (09/14/15 12:54 AM) Negative 09/14/2015 [facility] URINE AND STOOL UA Ketones Negative mg/dL Negative mg/dL 09/14/2015 [facility] URINE AND STOOL UA Glucose Negative mg/dL Negative mg/dL 09/14/2015 [facility] URINE AND STOOL UA Protein 10 mg/dL Negative mg/dL 09/14/2015 [facility] URINE AND STOOL UA Urobilinogen <=1.0 mg/dL 0.1 - 1.0 09/14/2015 [facility] URINE AND STOOL UA Sq Epi None Seen 09/14/2015 [facility] URINE AND STOOL UA Mucus Few /LPF None Seen /LPF 09/14/2015 [facility] URINE AND STOOL UA Bacteria Occasional /HPF None Seen /HPF 09/14/2015 [facility] URINE AND STOOL UA pH 5.0 5.0 - 8.0 09/14/2015 [facility] URINE AND STOOL UA Spec Grav 1.029 <=1.030 09/14/2015 [facility] URINE AND STOOL UA Turbidity Clear (09/14/15 12:54 AM) Clear 09/14/2015 [facility] URINE AND STOOL UA Color Yellow *NA* (09/14/15 12:54 AM) Yellow 09/14/2015 [facility] ANEMIA STUDY Ferritin Lvl 240 22 - 275 09/14/2015 [facility] ANEMIA STUDY % Satur Fe 14 12 - 57 09/14/2015 [facility] ANEMIA STUDY UIBC 269 110 - 370 09/14/2015 [facility] ANEMIA STUDY TIBC 311 228 - 428 09/14/2015 [facility] ANEMIA STUDY Iron 42 45 - 160 09/14/2015 [facility] CARDIAC ENZYMES CK-MB INDEX 1.6 0.0 - 2.5 09/14/2015 [facility] CARDIAC ENZYMES CK MB 1.4 0.5 - 3.6 09/14/2015 [facility] CARDIAC ENZYMES Troponin-T <0.010 0.000 - 0.100 09/14/2015 [facility] CARDIAC ENZYMES Total CK 90 12 - 191 09/14/2015 [facility] CARDIAC ENZYMES Troponin-I <0.02 0.00 - 0.40 09/14/2015 [facility] CHEM PANEL Total Protein 7.4 6.4 - 8.4 09/14/2015 [facility] CHEM PANEL Bili Direct 0.2 0.0 - 0.3 09/14/2015 [facility] CHEM PANEL Bili Total 1.5 0.2 - 1.3 09/14/2015 [facility] CHEM PANEL Albumin Lvl 2.9 3.5 - 5.0 09/14/2015 [facility] CHEM PANEL ALT 26 0 - 65 09/14/2015 [facility] CHEM PANEL AST 34 0 - 37 09/14/2015 [facility] CHEM PANEL Alk Phos 77 39 - 136 09/14/2015 [facility] CHEM PANEL Bili Indirect 1.3 0.0 - 1.0 09/14/2015 [facility] CHEM PANEL A/G Ratio 0.6 0.7 - 1.6 09/14/2015 [facility] CHEM PANEL Globulin 4.5 2.0 - 4.0 09/14/2015 [facility] CHEM PANEL Phosphorus 3.2 2.5 - 4.5 09/14/2015 [facility] CHEM PANEL eGFR 81 09/14/2015 Result Comment: [...] the estimated BMI. [facility] CHEM PANEL Chloride Lvl 105 95 - 109 09/14/2015 [facility] CHEM PANEL CO2 27 24 - 32 09/14/2015 [facility] CHEM PANEL Calcium Lvl 8.6 8.5 - 10.5 09/14/2015 [facility] CHEM PANEL BUN 13 7 - 22 09/14/2015 [facility] CHEM PANEL Potassium Lvl 4.2 3.5 - 5.1 09/14/2015 [facility] CHEM PANEL Creatinine Lvl 0.94 0.50 - 1.40 09/14/2015 [facility] CHEM PANEL Sodium Lvl 138 135 - 145 09/14/2015 [facility] CHEM PANEL Glucose Lvl 116 70 - 99 09/14/2015 [facility] CHEM PANEL AGAP 10.2 10.0 - 20.0 09/14/2015 [facility] CHEM PANEL Magnesium Lvl 2.3 1.8 - 2.4 09/14/2015 [facility] HEMATOLOGY Hgb 12.3 14.0 - 18.0 09/14/2015 [facility] IMMUNOLOGY HIV 1/2 Ab Negative *NA* (09/13/15 9:07 PM) Negative 09/14/2015 [facility] IMMUNOLOGY CERULOPLASMIN 31 20 - 60 09/14/2015 [facility] IMMUNOLOGY Hep B Core Ab Positive *NA* (09/13/15 9:07 PM) Negative 09/14/2015 [facility] IMMUNOLOGY Hep Bs Ag Negative *NA* (09/13/15 9:07 PM) Negative 09/14/2015 [facility] IMMUNOLOGY Hep Bs Ab <3.1 <=7.4 mIU/mL 09/14/2015 [facility] IMMUNOLOGY Hep A Tot Positive *NA* (09/13/15 9:07 PM) Negative 09/14/2015 [facility] IMMUNOLOGY Hep C Ab Negative *NA* (09/13/15 9:07 PM) 09/14/2015 [facility] IMMUNOLOGY Hep A Tot Positive *NA* (09/13/15 9:07 PM) Negative 09/14/2015 [facility] IMMUNOLOGY Hep B Core Ab Negative *NA* (09/13/15 9:07 PM) Negative 09/14/2015 [facility] LIPIDS CHD Risk 3.59 4.00 - 7.30 09/14/2015 [facility] LIPIDS VLDL 18 09/14/2015 [facility] LIPIDS LDL (Calculated) 70 <=99 mg/dL 09/14/2015 [facility] LIPIDS Chol 122 <=199 mg/dL 09/14/2015 [facility] LIPIDS HDL 34 >=61 mg/dL 09/14/2015 [facility] LIPIDS Trig 89 <=149 mg/dL 09/14/2015 [facility] SPECIAL CHEMISTRY Hgb A1C 6.6 <=5.6 % 09/14/2015 [facility] Pathology Reports No Data Provided for This Section Diagnostic Reports Report Value Date Source Chest/Abdomen/Pelvis w IV contrast CT STUDY: Chest/Abdomen/Pelvis w IV contrast CT 11/20/2018 5:54 PM CDT Ordering Physician: Peggy Y Jason Patient Name: ILANA MENDEZ MR: [id number] : 1945; Age: 73 years y/o Male [...] of L5 on S1. SL: TPAINTER-PC 11/20/2018 [facility] Chest 1view DX EXAM: XR CHEST 1 VIEW DATE: 11/20/2018 17:54 CDT INDICATION: Chest pain. COMPARISON: 09/13/2015. TECHNIQUE: Frontal radiograph of the chest was obtained. FINDINGS: No focal consolidation or pneumothorax is identified. The cardiomediastinal silhouette is within normal limits. The costophrenic recesses are sharp and without effusion. Degenerative changes are present in the thoracic spine. IMPRESSION: No acute cardiopulmonary abnormality. SL: [id number] 11/20/2018 [facility] Forearm 2 views DX Patient Name: ILANA MENDEZ : 1945; Age: 73 years y/o Male MR: [id number] * RIGHT FOREARM, 2 views History: Trauma, injury to the right forearm, status post fall, Right forearm pain. Technique: Frontal and lateral radiographs of the right forearm were obtained. FINDINGS: There is no evidence of fracture, dislocation, or acute change. There are no destructive lesions or other osseous abnormalities. IMPRESSION: 1. Negative right forearm. SL: CLARK- 11/20/2018 [facility] Brain wo contrast CT EXAM: CT BRAIN [...] performed for complete assessment. SL: [id number]- 11/20/2018 [facility] Spine cervical wo contrast CT (ER) Procedure: [...] fractures or subluxations of the cervical spine. SL:[id number] 11/20/2018 [facility] Liver Protocol w/wo IV contrast CT [...] cysts. RECOMMENDATIONS: Continued surveillance. 11/20/2016 [facility] Liver Protocol w/wo IV contrast CT EXAM: CT ABDOMEN WITH AND WITHOUT CONTRAST DATE: 06/03/2016 10:39 AM MEDICAL OFFICE SPECIALIST INDICATION: cirrhosis, ascites ADDITIONAL INFORMATION: None. COMPARISON: [...] pleural effusion. 09/15/2015 [facility] Chest 1view DX Indications: Arrhythmias. IMPRESSION: Single AP view of the chest reveals cardiomegaly with mild pulmonary vascular congestion. Subsegmental atelectasis is seen both lung bases. The regional skeleton is unremarkable. There is no pleural effusions. 09/13/2015 [facility] Consultation Notes No Data Provided for This Section Discharge Summaries No Data Provided for This Section History and Physicals No Data Provided for This Section Vital Signs Vital Sign Value Date Comments Source Heart Rate 83 12/15/2018 [facility] Height 167.64 cm 12/15/2018 [facility] Weight 126.364 12/15/2018 [facility] BMI Calculated 44.96 12/15/2018 [facility] Systolic (mm Hg) 139 12/15/2018 [facility] Diastolic (mm Hg) 84 12/15/2018 [facility] Respitory Rate 18 11/21/2018 [facility] Systolic (mm Hg) 150 11/21/2018 [facility] Diastolic (mm Hg) 86 11/21/2018 [facility] Temperature Oral (F) 98.6 F 11/21/2018 [facility] Heart Rate 90 11/21/2018 [facility] Weight 127 11/20/2018 [facility] BMI Calculated 45.19 11/20/2018 [facility] Height 167.64 cm 11/20/2018 [facility] Temperature Oral (F) 98.4 F 11/20/2018 [facility] Systolic (mm Hg) 123 11/20/2018 [facility] Diastolic (mm Hg) 62 11/20/2018 [facility] Respitory Rate 18 11/20/2018 [facility] Heart Rate 82 11/20/2018 [facility] Systolic (mm Hg) 133 07/21/2018 [facility] Diastolic (mm Hg) 92 07/21/2018 [facility] Respitory Rate 16 07/21/2018 [facility] Systolic (mm Hg) 143 07/21/2018 [facility] Diastolic (mm Hg) 75 07/21/2018 [facility] Respitory Rate 18 07/21/2018 [facility] Systolic (mm Hg) 126 07/21/2018 [facility] Diastolic (mm Hg) 67 07/21/2018 [facility] Respitory Rate 15 07/21/2018 [facility] Heart Rate 79 07/21/2018 [facility] Height 167.64 cm 07/21/2018 [facility] BMI Calculated 44.16 07/21/2018 [facility] Weight 124.091 07/21/2018 [facility] Weight 98.636 07/20/2018 [facility] BMI Calculated 35.1 07/20/2018 [facility] Height 167.64 cm 07/20/2018 [facility] Height 167.64 cm 06/14/2018 [facility] BMI Calculated 45.13 06/14/2018 [facility] Weight 126.818 06/14/2018 [facility] Systolic (mm Hg) 151 06/14/2018 [facility] Diastolic (mm Hg) 91 06/14/2018 [facility] BMI Calculated 44.64 12/14/2017 [facility] Weight 125.455 12/14/2017 [facility] Height 167.64 cm 12/14/2017 [facility] Heart Rate 84 12/14/2017 [facility] Respitory Rate 16 12/14/2017 [facility] Systolic (mm Hg) 151 12/14/2017 [facility] Diastolic (mm Hg) 84 12/14/2017 [facility] Systolic (mm Hg) 172 05/20/2017 [facility] Diastolic (mm Hg) 83 05/20/2017 [facility] Systolic (mm Hg) 153 05/20/2017 [facility] Diastolic (mm Hg) 79 05/20/2017 [facility] Respitory Rate 11 05/20/2017 [facility] Systolic (mm Hg) 138 05/20/2017 [facility] Diastolic (mm Hg) 74 05/20/2017 [facility] Respitory Rate 25 05/20/2017 [facility] Heart Rate 88 05/20/2017 [facility] Respitory Rate 17 05/20/2017 [facility] BMI Calculated 45.33 05/06/2017 [facility] Weight 125.455 05/06/2017 [facility] Height 166.37 cm 05/06/2017 [facility] Heart Rate 83 05/06/2017 [facility] Weight 124.091 04/06/2017 [facility] BMI Calculated 44.16 04/06/2017 [facility] Height 167.64 cm 04/06/2017 [facility] Respitory Rate 18 04/06/2017 [facility] Heart Rate 79 04/06/2017 [facility] Systolic (mm Hg) 133 04/06/2017 [facility] Diastolic (mm Hg) 82 04/06/2017 [facility] Respitory Rate 16 10/06/2016 [facility] Heart Rate 81 10/06/2016 [facility] Systolic (mm Hg) 145 10/06/2016 [facility] Diastolic (mm Hg) 85 10/06/2016 [facility] BMI Calculated 41.91 10/06/2016 [facility] Weight 121.364 10/06/2016 [facility] Height 170.18 cm 10/06/2016 [facility] Weight 116.818 03/24/2016 [facility] BMI Calculated 40.34 03/24/2016 [facility] Systolic (mm Hg) 149 03/24/2016 [facility] Diastolic (mm Hg) 91 03/24/2016 [facility] Heart Rate 81 03/24/2016 [facility] Temperature Oral (F) 97.3 F 03/24/2016 [facility] Height 170.18 cm 03/24/2016 [facility] BMI Calculated 39.59 01/13/2016 [facility] Weight 114.659 01/13/2016 [facility] Height 170.18 cm 01/13/2016 [facility] Systolic (mm Hg) 142 01/13/2016 [facility] Diastolic (mm Hg) 82 01/13/2016 [facility] Heart Rate 97 01/13/2016 [facility] Systolic (mm Hg) 129 09/16/2015 [facility] Diastolic (mm Hg) 62 09/16/2015 [facility] Respitory Rate 20 09/16/2015 [facility] Temperature Oral (F) 97.7 F 09/16/2015 [facility] Heart Rate 83 09/16/2015 [facility] Temperature Oral (F) 97.5 F 09/16/2015 [facility] Respitory Rate 20 09/16/2015 [facility] Heart Rate 75 09/16/2015 [facility] Systolic (mm Hg) 111 09/16/2015 [facility] Diastolic (mm Hg) 69 09/16/2015 [facility] Systolic (mm Hg) 117 09/16/2015 [facility] Diastolic (mm Hg) 64 09/16/2015 [facility] Heart Rate 101 09/16/2015 [facility] Respitory Rate 20 09/16/2015 [facility] Temperature Oral (F) 98.2 F 09/16/2015 [facility] BMI Calculated 44.89 09/13/2015 [facility] Weight 130 09/13/2015 [facility] Height 170.18 cm 09/13/2015 [facility] Encounters Location Location Details Encounter Type Encounter Number Reason For Visit Attending Provider ADM Date DC Date Status Source [facility] Inpatient [id number] Eusebio Perez 09/13/2015 09/16/2015 [facility] Outpatient [id number] Teto Guajardo 01/13/2016 01/14/2016 [facility] [place] [facility] [id number] Teto Guajardo 02/07/2016 02/08/2016 [facility] Outpatient [id number] Teto Guajardo 03/24/2016 03/25/2016 [facility] [place] [facility] [id number] Paco Fowler 04/20/2016 04/21/2016 [facility] Outpatient Imaging [place] [facility] [id number] Paco Fowler 04/27/2016 04/28/2016 [facility] Outpatient [id number] Teto Guajardo 05/07/2016 05/07/2016 [facility] [place] [facility] [id number] Teto Guajardo 06/03/2016 06/04/2016 [facility] [id number] Paco Fowler 08/21/2016 09/20/2016 [facility] [id number] Paco Fowler 09/21/2016 10/21/2016 [facility] Outpatient [id number] Teto Guajardo 10/06/2016 10/07/2016 [facility] [place] [facility] [id number] Teto Bennett 11/20/2016 11/21/2016 [facility] Out[facility] [place] [facility] [id number] Obed Mar 03/29/2017 03/30/2017 [facility] Outpatient [id number] Teto Guajardo 04/06/2017 04/07/2017 [facility] [id number] Teto Guajardo 05/20/2017 05/21/2017 [facility] Outpatient [id number] Teto Guajardo 12/14/2017 12/15/2017 [facility] Departed Emergency Room [id number] MIREILLE WALL MD 01/31/2018 01/31/2018 [facility] Outpatient [id number] Teto Guajardo 06/14/2018 06/15/2018 [facility] [place] [facility] [id number] Mar Lobo 07/08/2018 07/08/2018 [facility] Day Surgery [id number] Teto Guajardo 07/21/2018 07/22/2018 [facility] [place] [facility] [id number] Teto Guajardo 11/05/2018 11/06/[address] [facility] Emergency [id number] Tadeo Rogers 11/20/2018 11/21/2018 [facility] Outpatient [id number] Mar Lobo 12/15/2018 12/16/2018 [facility] Procedures Procedure Code Date Perfomer Comments Source Injection procedure for shoulder arthrography or enhanced CT/MRI shoulder arthrography 95994 [id number] [facility], [facility] Assessment and Plan Assessment and Plan [...] Histories Past Medical History: Resolved HTN (hypertension) ([id number]): Resolved. Family History: History is unknown. Procedure [...] the note. 09/16/2015 [facility] Plan of Care Plan of Care Date Source Discharge Date 01/31/18 8:39pm Disposition LEFT AFTER MEDICAL SCREENING Condition at Discharge Stable Instructions/Education Provided Back Pain Forms Provided Work/School Excuse Prescriptions See Medication Section 01/31/2018 [facility] Social History Social History Date Source Social [...] 11/08/2015 5:32pm Not Applicable Not Applicable 01/31/2018 [facility] Social History TypeResponse Substance Abuse Use: None. [...] years ago 09/13/2015 [facility] Social History TypeResponse Substance Abuse Use: None. Employment/School Status: Retired. Alcohol Never Smoking Status Former smoker; Type: Cigarettes; Exposure to Tobacco Smoke Pt. current everyday smoker; Cigarette Smoking Last 365 Days Yes; Reg Smoking Cessation Counseling No 09/13/2015 [facility] Social History TypeResponse Substance Abuse Use: None. Employment/School Status: Retired. Alcohol Never Smoking Status Former smoker; Type: Cigarettes; Exposure to Tobacco Smoke Pt. current everyday smoker; Cigarette Smoking Last 365 Days No; Reg Smoking Cessation Counseling No1 entered on: 11/20/18 1quit about 2 years ago 09/13/2015 [facility] Family History No Data Provided for This Section Advance Directives Order Name Results Value Date Source Advance Directives Advance Directives Directive Response Recorded Date/Time Does the patient have an advance directive? No 11/08/15 5:32pm If yes, is advance directive on file with [facility]? No 09/04/15 2:56pm If not on file with [facility] will patient provide a copy? No 04/03/17 8:15am 01/31/2018 [facility] Functional Status No Data Provided for This Section
--- OUTSIDE RECORDS SUMMARY | 2019-03-09 09:31 | XMS REPORT | Summary of Care ---
Author Author SHOSHANA STRONG M.D. Organization Unknown Address [facility] Phone Unavailable Care Team Providers Care Time Piece Repairer Name Role Phone SHOSHANA STRONG M.D. 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 * Start : 18-Mar-2017 Active 21 Tablet Pack Meloxicam 7.5 MG Oral Tablet TAKE ONE TABLET ONCE A DAY NEEDED FOR PAIN * Quantity: 30 Refills: 3 SHOSHANA STRONG M.D. * Start : 18-Mar-2017 Active Allergies and Adverse Reactions Name Dates Details No Known Drug Allergies (Allergy) Status: Active Procedures Procedure Dates Details Procedures not documented Immunization Name Dates Details Immunizations not documented Social History Name Dates Details Unknown if ever smoked Vital Signs Date Test Result Details No Known Vitals to report Results Date Description Value Details Results not documented Plan of Care Name Dates Details Planned Observations Planned Goals not documented Interventions Provided Medication Changes* Meloxicam 7.5 MG Oral Tablet - Start * methylPREDNISolone 4 MG Oral Tablet Therapy Pack - Start Instructions Name Dates Details Instructions not documented Encounters Appointment; TETO GUAJARDO M.D. Encounter Diagnosis: Problem not documented On: 06-Oct-2016 10:45 Appointment; SHOSHANA STRONG M.D. Encounter Diagnosis: Problem not documented On: 18-Mar-2017 9:30 Appointment; TETO GUAJARDO M.D. Encounter Diagnosis: Problem not documented On: 06-Apr-2017 10:45 Appointment; SHOSHANA STRONG M.D. Encounter Diagnosis: Problem not documented On: 08-Apr-2017 11:15 Appointment; TETO GUAJARDO M.D. Encounter Diagnosis: Problem not documented On: 05-Oct-2017 11:45 Appointment; TETO GUAJARDO M.D. Encounter Diagnosis: Problem not documented On: 14-Dec-2017 11:45 Appointment; TETO GUAJARDO M.D. Encounter Diagnosis: Problem not documented On: 14-Jun-2018 12:15
--- OUTSIDE RECORDS SUMMARY | 2019-03-09 09:31 | XMS REPORT ---
Author Author [facility] Address Unknown Phone Unavailable Care Team Providers Care [place] Manager Name Role Phone Abisai SINGH Unavailable Unavailable Alise DHALIWAL Unavailable Unavailable Problems This patient has no known problems. Allergies, Adverse Reactions, Alerts This patient has no known allergies or adverse reactions. Medications This patient has no known medications. Encounters Start Date/Time End Date/Time Encounter Type Admission Type Attending Clinicians Care Facility Care Department Encounter ID 2018-12-15 11:41:00 2018-12-15 11:41:00 Outpatient [facility] MED [id number] Results Test Description Test Time Test Comments Text Results Atomic Results Result Comments CT ABDOMEN/PELVIS W 2019-03-07 09:42:00 [place] [address] Patient Name: ILANA MENDEZ MR #: [id number] : 1945 Age/Sex: 73/M Req #: [id number] Adm Physician: Ordered by: CARMEN SINGH MD Report #: [id number] Location: ER Room/Bed: Procedure: [id number] CT/CT ABDOMEN/PELVIS W Exam Date: 03/07/19 Exam Time: 0855 REPORT STATUS: Signed CT of the abdomen and pelvis, with contrast. History: Right flank pain. Comparison: None available. Technique: Multidetector CT scanning of the abdomen and pelvis was performed from the level of the lung bases to the inferior pubic rami after intravenous contrast material only. Coronal and sagittal multiplanar reformations were obtained. RADIATION DOSE: Total DLP: 789.96 mGy*cm Dose modulation, iterative reconstruction, and/or weight based adjustment of the mA/kV was utilized to reduce the radiation dose to as low as reasonably achievable. Findings: The lung bases are clear. The imaged portion of the heart demonstrates no significant abnormalities. The liver is normal in size and attenuation without evidence for focal abnormality. The gallbladder is unremarkable. There is no biliary ductal dilatation. The stomach, spleen, pancreas, and bilateral adrenal glands are unremarkable. Incidentally noted is a splenule adjacent to the spleen. The kidneys are normal in size and locat ion concentrate contrast material properly. There is no evidence for nephrolithiasis or hydronephrosis. There is a 5.2 x 4.8 m simple cyst identified arising off the inferior pole the right kidney. There is a 3.4 x 4.2 cm simple cyst identified arising off the inferior pole the left kidney. The ureters are normal course and caliber. The urinary bladder and prostate are grossly unremarkable. The abdominal aorta is normal course and caliber. The IVC is unremarkable. Please note evaluation the bowel is limited without the use of enteric contrast material. The visualized loops of small and large bowel demonstrate no evidence of obstruction or inflammation. Extensive diverticula are noted within the sigmoid colon without evidence for acute diverticulitis. There is no ascites or intraperitoneal free air. No abnormally enlarged lymph nodes are identified within the abdomen or pelvis. There is a fat-containing abdominal hernia present. There is a prominent left inguinal hernia containing mesenteric fat and small amount of fluid. Degenerative changes of the thoracolumbar spine. The osseous structures demonstrate no evidence for acute fracture or destructive process. The extraperitoneal soft tissues are unremarkable. IMPRESSION: No acute abdominopelvic process identified. Diverticulosis without evidence for acute diverticulitis. Signed by: Dr. Hugo Whitten MD on 03/07/2019 9:50 AM Dictated By: HUGO WHITTEN MD 9 Transcribed By: HECTOR on 03/07/19949 COPY TO: CARMEN SINGH MD CHEST SINGLE (PORTABLE) 2019-03-07 08:45:[address], [place], [place] [address] Patient Name: ILANA MENDEZ MR #: [id number] : 1945 Age/Sex: 73/M Req #: [id number] Adm Physician: Ordered by: CARMEN SINGH MD Report #: [id number] Location: ER Room/Bed: Procedure: [id number] DX/CHEST SINGLE (PORTABLE) Exam Date: 03/07/19 Exam Time: 824 REPORT STATUS: Signed EXAM: CHEST SINGLE (PORTABLE) DATE: 03/07/2019 7:31 AM INDICATION: Right-sided pain COMPARISON: None FINDINGS: The trachea is midline. The lungs are symmetrically expanded without evidence for large focal consolidation, pneumothorax, or significant pleural effusion. The cardiac silhouette appears magnified by technique. Mediastinal contours are unremarkable. No acute osseous abnormalities identified. IMPRESSIO N: No acute cardiopulmonary process identified. Signed by: Dr. Hugo Whitten MD on 03/07/2019 8:46 AM Dictated By: HUGO WHITTEN MD 5 Transcribed By: HECTOR on 03/07/19845 COPY TO: CARMEN SINGH MD CT ABDOMEN/PELVIS [address] [address] Patient Name: ILANA MENDEZ MR #: [id number] : 1945 Age/Sex: 71/M Req #: [id number] Adm Physician: Ordered by: MELONY DHALIWAL MD Report #: [id number] Location: ER Room/Bed: Procedure: [id number] CT/CT ABDOMEN/PELVIS WO Exam Date: 04/03/17 Exam Time: 919 REPORT STATUS: Signed EXAM: CT Abdomen and Pelvis WITHOUT contrast INDICATION: COMPARISON: None. TECHNIQUE: Abdomen and Pelvis was scanned utilizing a multidetector helical scanner without the use of IV contrast. Coronal and sagittal reformations were obtained. IV CONTRAST: None COMPLICATIONS: None RADIATION DOSE: Total DLP: 851 mGy*cm Estimated effective dose: (DLP x 0.015 x size factor) mSv CTDIvol has been reviewed. It is below the limits set by the Radiation Protocol Committee (RPC). FINDINGS: Abdomen: Lung Bases: No acute findings. Solid Organs: 54 mm exophytic cyst arising from the inferior pole of the right kidney. 43 mm cyst mid left kidney. No hydronephrosis, renal, or ureteral calculi. There is fullness of the left hepatic lobe, incompletely evaluated without IV contrast. Micronodular contour of the liver not excluded. Adrenals, spleen, and pancreas otherwise grossly unremarkable. Upper GI Tract: Gastric decompression limits evaluation. Duodenal diverticulum present. No small bowel obstructive changes are identified. Vascularity: Mild aortic vascular calcifications with no aneurysm. Lymph Nodes: No suspicious aortocaval or mesenteric lymph nodes. Other: Moderate fat-containing umbilical hernia. Pelvis: Bladder: Partially decompressed, limiting evaluation. Other: Left inguinal canal is patulous tracking to the subcutaneous tissues of the left pelvis with 30 x 31 mm subcutaneous fluid collection, nonspecific. Colon: Significant sigmoid diverticulosis with minimal wall thickening and pericolonic stranding. No distinct fluid collection identified. Bones: Degenerative changes spine. IMPRESSION: 1. Advanced sigmoid diverticulosis with mild superimp osed diverticulitis. 2. Lobular fullness of the left hepatic lobe with questionable micronodularity. Outpatient hepatic ultrasound or liver mass CT/MRI recommended. 3. Other findings as above. Signed by: Dr. Francisca Munson MD on 04/03/2017 9:46 AM Dictated By: FARNCISCA MUNSON MD 5 Transcribed By: HECTOR on 04/03/17945 COPY TO: MEOLNY DHALIWAL MD
[2019-03-09] MEDS ORDERED: METHYLPREDNISOLONE SOD SUCC 125 MG/2ML VIAL IV STA (09:39)
[2019-03-09] MEDS ORDERED: DIPHENHYDRAMINE HCL INJ 50 MG/ML VIAL IV NR (09:45)
[2019-03-09] MEDS ORDERED: SODIUM CHLORIDE 0.9% 500ML 500 ML IV ONE (09:45)
[2019-03-09] MEDS ORDERED: FAMOTIDINE 20 MG/2 ML VIAL IV NR (10:00)
[2019-03-09 12:14] VITALS: BP 128/91
== END 2019-03-09 12:30 | disposition home or self-care (01) ==
LOC: ER 09:25
DX: T78.40XA Allergy, unspecified, initial encounter (principal); T78.3XXA Angioneurotic edema, initial encounter; T49.0X4A Poisoning by local antifungal, anti-infective and anti-inflammatory drugs, undetermined, initial encounter
CPT/HCPCS: 99283; J1200; J2930; J7040

== ENCOUNTER → 2019-03-21 | Outpatient (CLI) | payer OTHER, MEDICARE ==
--- NOTE | 2019-03-21 20:12 | Diagnostic Imaging Report ---
Hepatobiliary Scan with Gallbladder Ejection Fraction Clinical information: RUQ abdominal pain Report: Following intravenous administration of 6.6 millicuries of Tc-99m mebrofenin, dynamic images of the abdomen in the anterior projection were obtained through 30 minutes. Sincalide (CCK analog) 2.5 micrograms was administered intravenously over 30 minutes with additional imaging for determination of gallbladder ejection fraction. Perfusion to the liver is normal. Extraction of tracer from the blood pool by the liver parenchyma is normal. Tracer is seen promptly within the biliary tract. The gallbladder begins to fill by 15 minutes post-injection of tracer and fills adequately. Tracer is seen in the small bowel during the sincalide infusion. The gallbladder ejection fraction with administration of sincalide is 45% (normal greater than 40%). Impression: 1. Filling of the gallbladder excludes the diagnosis of acute cystic duct obstruction/acute cholecystitis. 2. Normal gallbladder ejection fraction of 45% does not support the clinical diagnosis of chronic cholecystitis/gallbladder dyskinesia. Signed by: Dr. Licha Baltazar M.D. on 03/21/2019 8:09 PM
== END ==
LOC: NM 11:00
PROVIDERS: ATTEND Family Medicine
DX: R10.11 Right upper quadrant pain (principal)
CPT/HCPCS: 78227; A9537

== ENCOUNTER 2019-11-06 20:06 | Emergency (ER) | payer MEDICARE ==
[~2019-11-06] VITALS: Ht 167.6 cm; Wt 122.5 kg
[~2019-11-06 20:06] MED LIST changes: +POTASSIUM CHLO20 ME2 PO
[2019-11-06] MEDS ORDERED: CYCLOBENZAPRINE HCL 10 MG TAB PO ONE (20:30)
[2019-11-06] MEDS ORDERED: DEXAMETHASONE SOD PHOS 10 MG/1 ML VIAL IM ONE (20:30)
[2019-11-06] MEDS ORDERED: HYDROCODONE/APAP 5MG-325MG TAB PO ONE (20:30)
[2019-11-06] MEDS ORDERED: ONDANSETRON HCL 4 MG ORAL DISINTEGRATING TAB PO ONE (20:30)
[2019-11-06] MEDS ORDERED: KETOROLAC TROMETHAMINE 10 MG TAB PO ONE (20:30)
--- NOTE | 2019-11-06 22:16 | Diagnostic Imaging Report ---
X-ray lumbar spine 3 views HISTORY: Pain. COMPARISON: Abdominal CT 04/03/2017 FINDINGS: Some osseous structures are partially obscured by bowel contents. No radiographic evidence of acute fracture. There are 5 nonrib bearing lumbar vertebral bodies. Normal lumbar lordosis. Stable mild anterolisthesis of L5 on S1. Disc space narrowing at L5-S1. Extensive multilevel disc osteophytes. Inferior L5 pars defects. Low bone mineral density. Extensive hypertrophic sclerotic facet arthropathy, worst at L5-S1. IMPRESSION: No acute radiographic osseous abnormality. Extensive degenerative changes as described above, worst at L5-S1, where there is stable mild anterolisthesis and pars defects. Signed by: Unruly Corona DO on 11/06/2019 10:13 PM
[2019-11-06 22:18] LABS: CLARITY,URINE SL CLOUDY (CLEAR); COLOR,URINE YELLOW (YELLOW); LEUKOCYTE ESTERASE ,URINE NEGATIVE (NEGATIVE); NITRITE,URINE NEGATIVE (NEGATIVE); PROTEIN,URINE DIPSTICK NEGATIVE (NEGATIVE)
[2019-11-06 22:19] LABS: BILIRUBIN,URINE NEGATIVE (NEGATIVE); KETONES,URINE NEGATIVE (NEGATIVE); URINE UROBILINOGEN 1 mg/dL (0.2 - 1)
[2019-11-06 22:41] LABS: BACTERIA,URINE MANY /HPF; EPITHELIAL CELLS,URINE FEW /LPF; MUCUS,URINE MANY (RARE)
--- NOTE | 2019-11-07 00:19 | Diagnostic Imaging Report ---
EXAM: CT Abdomen and Pelvis WITHOUT contrast INDICATION: Lower back pain COMPARISON: Abdominal CT 03/07/2019. TECHNIQUE: Abdomen and pelvis were scanned utilizing a multidetector helical scanner from the lung base to the pubic symphysis without administration of IV contrast. Absence of intravenous contrast decreases sensitivity for detection of focal lesions and vascular pathology. Coronal and sagittal reformations were obtained. Routine protocol was performed. IV CONTRAST: None ORAL CONTRAST: None COMPLICATIONS: None RADIATION DOSE: Total DLP: 809 mGy*cm Estimated effective dose: (DLP x 0.015 x size factor) mSv CTDIvol has been reviewed. It is below the limits set by the Radiation Protocol Committee (RPC). Dose modulation, iterative reconstruction, and/or weight based adjustment of the mA/kV was utilized to reduce the radiation dose to as low as reasonably achievable. FINDINGS: LINES and TUBES: None. LOWER THORAX: Aortic valve calcifications . Coronary artery calcifications. HEPATOBILIARY: Mild hepatomegaly. Nodular hepatic surface contour. Caudate lobe hypertrophy. No focal hepatic lesions. No biliary ductal dilation. GALLBLADDER: No radio-opaque stones or sludge. No wall thickening. SPLEEN: No splenomegaly. PANCREAS: No focal masses or ductal dilatation. ADRENALS: No adrenal nodules KIDNEYS/URETERS: No hydronephrosis. Prominent bilateral inferior pole cyst. No stones. GI TRACT: Extensive colonic diverticulosis, worst in the sigmoid colon. Subtle perisigmoid fat stranding and sigmoid vasa recta hyperemia . No abnormal distention, wall thickening, or evidence of bowel obstruction. Moderate colonic stool burden. Appendix is normal. PELVIC ORGANS/BLADDER: Unremarkable. LYMPH NODES: No lymphadenopathy. VESSELS: Arterial calcifications. PERITONEUM / RETROPERITONEUM: No free air or fluid. BONES: Advanced degenerative changes in the lumbar spine with chronic mild anterolisthesis of L5 on S1, where there is probable spinal canal stenosis (series 3 image 114). SOFT TISSUES: Nondistended left testicle within the left inguinal subcutaneous adipose. IMPRESSION: 1. Extensive colonic diverticulosis, worst in the sigmoid colon where there are subtle findings which can be seen with acute uncomplicated diverticulitis. 2. Advanced degenerative changes in the lumbar spine with chronic mild anterolisthesis of L5 on S1. Probable lower lumbar spinal canal and foraminal stenosis 3. Moderate colonic stool burden. 4. Hepatomegaly with changes of hepatic cirrhosis. 5. Mild lower lobe bronchiectasis, correlate for chronic bronchitis.. Signed by: Unruly Corona DO on 11/07/2019 12:16 AM
[2019-11-07 00:20] VITALS: BP 120/78
== END 2019-11-07 00:21 | disposition home or self-care (01) ==
LOC: ER 20:06
DX: S39.012A Strain of muscle, fascia and tendon of lower back, initial encounter (principal); M54.42 Lumbago with sciatica, left side; K57.32 Diverticulitis of large intestine without perforation or abscess without bleeding; I10 Essential (primary) hypertension; B19.20 Unspecified viral hepatitis C without hepatic coma; M54.9 Dorsalgia, unspecified; G89.29 Other chronic pain
CPT/HCPCS: 72100; 74176; 81001; 99283; J1100; Q0162

== ENCOUNTER → 2020-05-08 | Outpatient (CLI) | payer OTHER, MEDICARE ==
[2020-05-08 11:43] LABS: BASOPHILS % 0.4 % (0.0-1.0); EOSINOPHILS # (AUTO) 0.1 (0.0-0.4); EOSINOPHILS % 2.2 % (0.0-6.0); HEMATOCRIT 46.2 % (38.2-49.6); HEMOGLOBIN 14.9 g/dL (14.0-18.0); LYMPHOCYTES # (AUTO) 2.1 (1.0-3.2); LYMPHOCYTES % 37.7 % (18.0-39.1); MEAN CORPUSCULAR HEMOGLOBIN 30.8 pg (28-32); MEAN CORPUSCULAR HGB CONC 32.3 g/dL (31-35); MEAN CORPUSCULAR VOLUME 95.5 fL (81-99); MONOCYTES # (AUTO) 0.5 (0.2-0.8); MONOCYTES % 8.2 % (4.4-11.3); NEUTROPHILS # (AUTO) 2.8 (2.1-6.9); NEUTROPHILS % 51.3 % (38.7-80.0); PLATELET COUNT 237 x10e3/uL (140-360); RED BLOOD COUNT 4.84 x10e6/uL (4.3-5.7); RED CELL DISTRIBUTION WIDTH 14.4 % (11.7-14.4)
[2020-05-08 11:53] LABS: INR 1.08; PROTHROMBIN TIME 14.6 seconds (11.9-14.5)
[2020-05-08 12:01] LABS: ALANINE AMINOTRANSFERASE 30 IU/L (0-55); ALBUMIN 3.5 g/dL (3.5-5.0); ALKALINE PHOSPHATASE 90 IU/L (40-150); ANION GAP 12.5 mmol/L (8-16); BILIRUBIN,DIRECT 0.6 mg/dL (0.0-0.5); BLOOD UREA NITROGEN 14 mg/dL (7-26); BUN/CREATININE RATIO 17 (6-25); CALCIUM 9.1 mg/dL (8.4-10.2); CARBON DIOXIDE 32 mmol/L (22-29); CHLORIDE 101 mmol/L (98-107); CREATININE, SERUM 0.81 mg/dL (0.72-1.25); EST GLOMERULAR FILTRATION RATE > 60 ML/MIN (60-); GLUCOSE 129 mg/dL (74-118); POTASSIUM 3.5 mmol/L (3.5-5.1); SODIUM 142 mmol/L (136-145)
--- NOTE | 2020-05-08 12:26 | Diagnostic Imaging Report ---
EXAM: Right upper quadrant abdominal ultrasound INDICATION: TODD cirrhosis COMPARISON: CT abdomen and pelvis of 11/06/2019 TECHNIQUE: Transverse and longitudinal images of the right upper quadrant abdomen were obtained FINDINGS: Liver: Size: 13.5 cm in the right midclavicular line, normal Appearance: Increased echogenicity, nodular surface contour Mass: No focal masses Gallbladder: Echogenic shadowing gallstones. No gallbladder wall thickening, para cholecystic fluid, or gallbladder distention. Negative sonographic Rockwell's sign. Gallbladder wall measures 2 mm. Bile Ducts: Intrahepatic Ducts: No dilatation Extrahepatic Ducts: Common bile duct measures 3 mm Pancreas: Visualized portions of the pancreatic head, neck and proximal body are normal. Kidney: The right kidney measures 13.6 cm without evidence of hydronephrosis or stone. Lower pole 5.9 cm simple cyst. Vessels: Aorta: Visualized portions are normal Inferior Vena Cava: Visualized portions are normal Main Portal Vein: 0.6 cm, normal size with hepatopetal flow. Free Fluid: No ascites or pleural effusion IMPRESSION: Nodular liver surface contour compatible with hepatic cirrhosis. Cholelithiasis without sonographic evidence of cholecystitis. Signed by: Forest Kenyon MD on 05/08/2020 12:22 PM
== END ==
LOC: US 10:29
PROVIDERS: ATTEND Internal Medicine Transplant Hepatology
DX: K75.81 Nonalcoholic steatohepatitis (NASH) (principal)
CPT/HCPCS: 36415; 76705; 80048; 80076; 82105; 85025; 85610

== ENCOUNTER 2020-09-09 07:24 | Emergency (ER) | payer MEDICARE ==
[~2020-09-09] VITALS: Ht 167.6 cm; Wt 122.5 kg
[2020-09-09] MEDS ORDERED: HYDROCODONE/APAP 7.5MG-325MG 1 EA TAB PO PRN (07:45)
== END 2020-09-09 10:03 | disposition home or self-care (01) ==
LOC: ER 08:01
DX: S43.401A Unspecified sprain of right shoulder joint, initial encounter (principal); M25.552 Pain in left hip; W18.11XA Fall from or off toilet without subsequent striking against object, initial encounter; Y92.002 Bathroom of unspecified non-institutional (private) residence as the place of occurrence of the external cause; I10 Essential (primary) hypertension; K74.60 Unspecified cirrhosis of liver; M54.9 Dorsalgia, unspecified; G89.29 Other chronic pain
CPT/HCPCS: 72170; 99283

== ENCOUNTER 2022-01-23 13:49 | Emergency (ER) | payer MEDICARE ==
[~2022-01-23] VITALS: Ht 167.6 cm; Wt 122.5 kg
[2022-01-23] MEDS ORDERED: DEXAMETHASONE SOD PHOS 10 MG/1 ML VIAL IV ONE (14:45)
[2022-01-23] MEDS ORDERED: KETOROLAC TROMETHAMINE 30 MG/ML VIAL IM ONE (14:45)
[2022-01-23] MEDS ORDERED: CELEBREX100 MG PO (15:09)
[2022-01-23] MEDS ORDERED: PREDNISONE50 MG PO (15:09)
[2022-01-23] MEDS ORDERED: METHOCARBAMOL500 MG PO (15:09)
== END 2022-01-23 15:20 | disposition home or self-care (01) ==
LOC: ER 14:23
DX: M54.42 Lumbago with sciatica, left side (principal); M54.41 Lumbago with sciatica, right side; H10.13 Acute atopic conjunctivitis, bilateral; I10 Essential (primary) hypertension; B19.20 Unspecified viral hepatitis C without hepatic coma
CPT/HCPCS: 99283; J1100; J1885

== ENCOUNTER 2022-10-06 10:44 | Emergency (ER) | payer MEDICARE ==
[~2022-10-06] VITALS: Ht 167.6 cm; Wt 122.5 kg
[~2022-10-06 10:44] MED LIST changes: +CELEBREX100 MG PO; +METHOCARBAMOL500 MG PO; +PREDNISONE50 MG PO
[2022-10-06 11:26] LABS: BASOPHILS % 0.2 % (0.0-1.0); EOSINOPHILS # (AUTO) 0.1 (0.0-0.4); EOSINOPHILS % 2.9 % (0.0-6.0); HEMATOCRIT 45.2 % (38.2-49.6); HEMOGLOBIN 15.1 g/dL (14.0-18.0); LYMPHOCYTES # (AUTO) 1.7 (1.0-3.2); LYMPHOCYTES % 34.1 % (18.0-39.1); MEAN CORPUSCULAR HEMOGLOBIN 30.9 pg (28-32); MEAN CORPUSCULAR HGB CONC 33.4 g/dL (31-35); MEAN CORPUSCULAR VOLUME 92.6 fL (81-99); MONOCYTES # (AUTO) 0.4 (0.2-0.8); MONOCYTES % 9.1 % (4.4-11.3); NEUTROPHILS # (AUTO) 2.6 (2.1-6.9); NEUTROPHILS % 53.5 % (38.7-80.0); PLATELET COUNT 154 x10e3/uL (140-360); RED BLOOD COUNT 4.88 x10e6/uL (4.3-5.7); RED CELL DISTRIBUTION WIDTH 15.1 % (11.7-14.4)
[2022-10-06 11:52] LABS: ALBUMIN 3.5 g/dL (3.5-5.0); ALBUMIN/GLOBULIN RATIO 0.8 (0.8-2.0); ANION GAP 14.7 mmol/L (8-16); CALCIUM 8.9 mg/dL (8.4-10.2); CREATININE, SERUM 1.09 mg/dL (0.72-1.25); POTASSIUM 3.7 mmol/L (3.5-5.1)
[2022-10-06 12:02] LABS: CLARITY,URINE CLEAR (CLEAR); COLOR,URINE YELLOW (YELLOW); KETONES,URINE NEGATIVE (NEGATIVE); LEUKOCYTE ESTERASE ,URINE NEGATIVE (NEGATIVE); NITRITE,URINE NEGATIVE (NEGATIVE); PROTEIN,URINE DIPSTICK NEGATIVE (NEGATIVE)
[2022-10-06 12:26] LABS: EPITHELIAL CELLS,URINE FEW /LPF
[2022-10-06 12:27] LABS: BACTERIA,URINE RARE /HPF; RBC,URINE 0-5 /HPF (0-5); WBC,URINE (MAN) 0-5 /HPF (0-5)
[2022-10-06] MEDS ORDERED: FUROSEMIDE INJ 10 MG/ML 4 ML VIAL IV ONE (14:00)
== END 2022-10-06 14:39 | disposition home or self-care (01) ==
LOC: ER 10:51
DX: R60.9 Edema, unspecified (principal); I50.9 Heart failure, unspecified; R07.89 Other chest pain; I10 Essential (primary) hypertension; R94.31 Abnormal electrocardiogram [ECG] [EKG]
CPT/HCPCS: 36415; 71045; 71101; 80053; 81001; 83880; 84484; 85025; 93005; 99284; J1940